=== PATIENT | female | born 1985 | race African-American/Black ===

== ENCOUNTER 2017-07-02 09:03 | Emergency (ER) | payer OTHER, SELFPAY | END 2017-07-02 10:55 | disposition home or self-care (01) | LOC: ERS 09:03 | DX: J45.901 Unspecified asthma with (acute) exacerbation (principal) | CPT/HCPCS: 94640; J7620 ==

== ENCOUNTER 2018-05-12 15:41 | Emergency (ER) | payer MEDICAID, SELFPAY ==
[2018-05-12 16:27] LABS: Hemoglobin 10.6 g/dL (12.0-16.0); Mean Corpuscular HGB CONC 31.8 g/dL (32.0-36.0); Mean Corpuscular Hemoglobin 27.4 pg (27.0-31.0); Mean Corpuscular Volume 86.2 fL (78.0-98.0); RBC Distribution Width 13.1 % (11.5-14.5); Red Blood Cell (RBC) Count 3.86 mill/uL (4.20-5.40)
[2018-05-12 16:47] LABS: ALT (SGPT) 13 U/L (8-55); AST (SGOT) 19 U/L (5-34); Albumin 3.6 g/dL (3.5-5.0); Alkaline Phosphatase 49 U/L (40-150); Anion Gap 12 mmol/L (10-20); BUN (Urea Nitrogen) 6 mg/dL (7.0-18.7); Bilirubin, Total 0.3 mg/dL (0.2-1.2); Calc. Creatinine Clearance 0 mL/min (70-130); Calcium 8.8 mg/dL (7.8-10.44); Carbon Dioxide 22 mmol/L (22-29); Chloride 106 mmol/L (98-107); Estimated GFR-MDRD Greater than 90; Glucose 92 mg/dL (70-105); Lipase 21 U/L (8-78); Potassium 3.8 mmol/L (3.5-5.1); Protein, Total 7.6 g/dL (6.0-8.3); Sodium 136 mmol/L (136-145)
[2018-05-12 16:51] LABS: #Lymphocytes 1.1 thou/uL (1.20-3.40); #Monocytes 0.4 thou/uL (0.11-0.59); #Neutrophils 2.3 thou/uL (1.40-6.50); %Basophils 0.9 % (0.0-1.0); %Eosinophils 0.9 % (0.0-10.0); %Lymphocytes 28.8 % (21.0-51.0); %Monocytes 11.1 % (0.0-10.0); %Neutrophils 58.2 % (42.0-75.0); Hypochromia SLIGHT = 6-15 cells (100X) (0-5/hpf); MDiff Complete? YES; Mean Platelet Volume 9.7 fL (7.4-10.4); Platelet Count 118 thou/uL (130-400); Platelet Morphology Comment Appears Decreased
[2018-05-12 17:18] LABS: Bilirubin Negative (Negative); Blood, Urine Moderate (Negative); Clarity CLEAR (Clear); Glucose, Urine (Dipstick) Negative (Negative); Leukocyte Negative (Negative); Nitrite Negative (Negative); Protein, Urine (Dipstick) > or equal to 300 mg/dL (Neg-Trace); Specific Gravity, Urine 1.022 (1.002-1.036)
[2018-05-12 17:21] LABS: Pregnancy Test - Urine (BHCG) Negative (Negative); Pregu Control Background? CLEAR/WHITE (CLR/WHITE); Pregu Control Bar Appear? YES (CONTROL BAR); Specific Gravity 1.022 (1.002-1.036)
[2018-05-12 17:25] LABS: Bacteria/HPF Rare-Few HPF (None Seen); Hyaline Casts/LPF 0-3 HYALINE CAST LPF (0-3 Hyaline); RBC/HPF 21-50 HPF (0-3); Squamous Epithelial 0-3 HPF (0-3)
[2018-05-12] MEDS ORDERED: Ondansetron ODT 4 MG TAB ONE (17:30)
[2018-05-12 18:41] LABS: BHCG - Serum Negative (NEGATIVE); Pregs Control Background? CLEAR/WHITE (CLR/WHITE); Pregs Control Bar Appear? YES (CONTROL BAR)
== END 2018-05-12 17:35 | disposition home or self-care (01) ==
LOC: ERS 15:41
DX: R10.9 Unspecified abdominal pain (principal); R11.10 Vomiting, unspecified; R19.7 Diarrhea, unspecified; J45.909 Unspecified asthma, uncomplicated
CPT/HCPCS: 36415; 80053; 81003; 81015; 81025; 83690; 84703; 85025; 99284; Q0162

== ENCOUNTER 2018-05-30 21:04 | Emergency (ER) | payer MEDICAID, OTHER ==
[2018-05-30 21:40] LABS: Bilirubin Negative (Negative); Blood, Urine Large (Negative); Clarity CLEAR (Clear); Glucose, Urine (Dipstick) Negative (Negative); Leukocyte Negative (Negative); Nitrite Negative (Negative); Protein, Urine (Dipstick) 300 mg/dL (Neg-Trace); Specific Gravity, Urine 1.021 (1.002-1.036)
[2018-05-30 21:41] LABS: Pregnancy Test - Urine (BHCG) Negative (Negative); Pregu Control Background? CLEAR/WHITE (CLR/WHITE); Pregu Control Bar Appear? YES (CONTROL BAR); Specific Gravity 1.021 (1.002-1.036)
[2018-05-30 21:43] LABS: #Lymphocytes 1.3 thou/uL (1.20-3.40); #Monocytes 0.5 thou/uL (0.11-0.59); #Neutrophils 2.3 thou/uL (1.40-6.50); %Basophils 0.3 % (0.0-1.0); %Eosinophils 0.9 % (0.0-10.0); %Monocytes 11.9 % (0.0-10.0); %Neutrophils 54.9 % (42.0-75.0); Hemoglobin 10.8 g/dL (12.0-16.0); Mean Corpuscular HGB CONC 32.3 g/dL (32.0-36.0); Mean Corpuscular Hemoglobin 27.5 pg (27.0-31.0); Mean Corpuscular Volume 85.2 fL (78.0-98.0); Mean Platelet Volume 10.1 fL (7.4-10.4); Platelet Count 126 thou/uL (130-400); Red Blood Cell (RBC) Count 3.94 mill/uL (4.20-5.40); White Blood Cell (WBC) Count 4.2 thou/uL (4.8-10.8)
[2018-05-30 21:43] LABS: Bacteria/HPF None Seen HPF (None Seen); Hyaline Casts/LPF 0-3 HYALINE CAST LPF (0-3 Hyaline); Pathc Cast-AUWi Flag 0.14 (0-2.49); RBC/HPF GREATER THAN 50-TNTC HPF (0-3); Squamous Epithelial 0-3 HPF (0-3); WBC/HPF 0-3 HPF (0-3)
[2018-05-30] MEDS ORDERED: Ketorolac Tromethamine 30 MG/ML VIAL ONE (21:59)
[2018-05-30 22:05] LABS: ALT (SGPT) 11 U/L (8-55); AST (SGOT) 21 U/L (5-34); Albumin 3.8 g/dL (3.5-5.0); Alkaline Phosphatase 63 U/L (40-150); Anion Gap 8 mmol/L (10-20); BUN (Urea Nitrogen) 7 mg/dL (7.0-18.7); Bilirubin, Total 0.3 mg/dL (0.2-1.2); Calc. Creatinine Clearance 0 mL/min (70-130); Calcium 9.7 mg/dL (7.8-10.44); Carbon Dioxide 30 mmol/L (22-29); Chloride 101 mmol/L (98-107); Estimated GFR-MDRD Greater than 90; Globulin 4.7 g/dL (2.4-3.5); Glucose 95 mg/dL (70-105); Lipase 23 U/L (8-78); Potassium 3.7 mmol/L (3.5-5.1); Protein, Total 8.5 g/dL (6.0-8.3); Sodium 135 mmol/L (136-145)
--- NOTE | 2018-05-30 23:20 | ULT ---
ULTRASOUND GALLBLADDER RIGHT UPPER QUADRANT: 05/30/18 HISTORY: Right upper quadrant pain. COMPARISON: None. TECHNIQUE: Real time santiago scale and color evaluation of the right upper quadrant is performed. FINDINGS: Visualized portions of the pancreas and IVC are unremarkable. Liver is normal. Portal vein is patent with antegrade flow. Common bile duct is normal. Gallbladder is normal. No pericholecystic fluid. No cholelithiasis. Right kidney is normal measuring 12 x 4.1 x 5.2 cm. No renal mass, hydronephrosis or abnormal calcifi cations. Sonographic Frost's sign is negative. IMPRESSION: Normal exam. POS: [facility]
== END 2018-05-31 00:14 | disposition home or self-care (01) ==
LOC: ERS 21:04
DX: R10.11 Right upper quadrant pain (principal); J45.909 Unspecified asthma, uncomplicated
CPT/HCPCS: 36415; 76705; 80053; 81003; 81015; 81025; 83690; 85025; 96372; J1885

== ENCOUNTER 2018-06-02 12:53 | Outpatient (CLI) | payer OTHER ==
--- NOTE | 2018-06-02 14:06 | RAD ---
CHEST 1 VIEW AND ABDOMEN 2 VIEWS: History Upper abdominal pain and pleuritic chest pain. FINDINGS: The cardiomediastinum is normal. The lungs are clear. No free air or differential air fluid levels are seen. The bowel gas pattern is unremarkable. No suspicious calcifications are identified. POS: [facility]
== END 2018-06-02 12:54 | disposition home or self-care (01) ==
LOC: BICRAD 12:53
PROVIDERS: ATTEND Internal Medicine
DX: R07.81 Pleurodynia (principal); R10.10 Upper abdominal pain, unspecified
CPT/HCPCS: 74022

== ENCOUNTER 2019-02-02 17:30 | Emergency (ER) | payer OTHER, SELFPAY | END 2019-02-02 18:36 | disposition home or self-care (01) | LOC: ERS 17:30 | DX: A38.9 Scarlet fever, uncomplicated (principal); J45.909 Unspecified asthma, uncomplicated | CPT/HCPCS: 99282 ==

== ENCOUNTER 2019-03-09 08:22 | Emergency (ER) | payer SELFPAY ==
--- NOTE | 2019-03-09 09:45 | RAD ---
EXAM: Chest PA and lateral: HISTORY: Cough. Left rib pain. COMPARISON: 06/02/2018 FINDINGS: Heart: Normal cardiac silhouette Aorta: Unremarkable Pulmonary vessels: Normal Costophrenic angles: Costophrenic angles are clear. Lungs: No consolidation or masses. Pneumothorax: No pneumothorax Osseous structures: No osseous abnormalities IMPRESSION: No acute cardiopulmonary process.
== END 2019-03-09 09:55 | disposition home or self-care (01) ==
LOC: ERS 08:22
DX: S29.011A Strain of muscle and tendon of front wall of thorax, initial encounter (principal); J45.909 Unspecified asthma, uncomplicated; X50.9XXA Other and unspecified overexertion or strenuous movements or postures, initial encounter
CPT/HCPCS: 71046

== ENCOUNTER 2019-07-13 02:45 | Emergency (ER) | payer SELFPAY ==
[2019-07-13 03:10] LABS: #Basophils 0.1 thou/uL (0.0-0.2); #Eosinphils 0.1 thou/uL (0.0-0.7); #Lymphocytes 1.8 thou/uL (1.20-3.40); #Monocytes 0.3 thou/uL (0.11-0.59); #Neutrophils 1.3 thou/uL (1.40-6.50); %Basophils 2.3 % (0.0-1.0); %Eosinophils 3.3 % (0.0-10.0); %Lymphocytes 48.8 % (21.0-51.0); %Monocytes 9.4 % (0.0-10.0); %Neutrophils 36.3 % (42.0-75.0); Hemoglobin 9.6 g/dL (12.0-16.0); Mean Corpuscular HGB CONC 32.1 g/dL (32.0-36.0); Mean Corpuscular Volume 83.9 fL (78.0-98.0); Mean Platelet Volume 10.5 fL (7.4-10.4); Platelet Count 181 thou/uL (130-400); RBC Distribution Width 14.6 % (11.5-14.5); Red Blood Cell (RBC) Count 3.56 mill/uL (4.20-5.40); White Blood Cell (WBC) Count 3.6 thou/uL (4.8-10.8)
[2019-07-13 03:36] LABS: ALT (SGPT) 16 U/L (8-55); AST (SGOT) 29 U/L (5-34); Albumin 3.5 g/dL (3.5-5.0); Alkaline Phosphatase 48 U/L (40-110); Anion Gap 11 mmol/L (10-20); BUN (Urea Nitrogen) 6 mg/dL (7.0-18.7); Bilirubin, Total 0.2 mg/dL (0.2-1.2); Calc. Creatinine Clearance 0 mL/min (70-130); Calcium 8.3 mg/dL (7.8-10.44); Carbon Dioxide 25 mmol/L (22-29); Chloride 105 mmol/L (98-107); Estimated GFR-MDRD Greater than 90; Globulin 5.3 g/dL (2.4-3.5); Glucose 86 mg/dL (70-105); Potassium 3.5 mmol/L (3.5-5.1); Protein, Total 8.8 g/dL (6.0-8.3); Sodium 137 mmol/L (136-145)
[2019-07-13 04:06] LABS: Pregnancy Test - Urine (BHCG) Negative (Negative); Pregu Control Background? CLEAR/WHITE (CLR/WHITE); Pregu Control Bar Appear? YES (CONTROL BAR); Specific Gravity 1.013 (1.002-1.036)
[2019-07-13 04:18] LABS: Bilirubin Negative (Negative); Blood, Urine 2+ (Negative); Clarity Clear (Clear); Glucose, Urine (Dipstick) Normal (Negative); Leukocyte 75 Leu/uL (Negative); Mucous/LPF Rare LPF (<2+); Nitrite Negative (Negative); Protein, Urine (Dipstick) 200 mg/dL (Neg-Trace); RBC/HPF 21-50 HPF (0-3); Squamous Epithelial 0-3 HPF (0-3); Urobilinogen Normal mg/dL (Less than 2); WBC/HPF 21-50 HPF (0-3); Yeast-Budding 1+ HPF (None Seen)
[2019-07-13 04:23] LABS: Bacteria/HPF 1+ HPF (None Seen)
--- NOTE | 2019-07-16 15:04 | EKG ---
Test Reason : Blood Pressure : / mmHG Vent. Rate : 070 BPM Atrial Rate : 070 BPM P-R Int : 230 ms QRS Dur : 086 ms QT Int : 410 ms P-R-T Axes : 035 017 024 degrees QTc Int : 442 ms Sinus rhythm with 1st degree A-V block Nonspecific T wave abnormality Abnormal ECG Confirmed by DEMARCO URIBE ([id number]), graphics editor RODRÍGUEZ LUCIO ([id number] on 07/16/2019 3:04:10 PM Referred By: Confirmed By:DEMARCO URIBE
== END 2019-07-13 04:15 | disposition home or self-care (01) ==
LOC: ERS 02:45
DX: D64.9 Anemia, unspecified (principal); J45.909 Unspecified asthma, uncomplicated; F32.9 Major depressive disorder, single episode, unspecified; Z79.899 Other long term (current) drug therapy
CPT/HCPCS: 80053; 81003; 81015; 81025; 85025; 93005

== ENCOUNTER 2019-09-07 20:32 | Inpatient (IN) | payer OTHER, MEDICAID ==
--- NOTE | 2019-09-07 21:14 | RAD ---
Exam: Chest one view HISTORY:Chest pain. Dyspnea. Comparison: 03/09/2019 FINDINGS: Cardiac silhouette:Cardiomegaly Aorta: Unremarkable Pulmonary vessels: Normal Costophrenic angles: This right-sided pleural effusion. LUNGS: Right lung opacification which obscures the right hemidiaphragm and right heart border. Pneumothorax: None Osseous abnormalities: None IMPRESSION: Pleural and parenchymal changes in the right lung.
[2019-09-07 21:33] LABS: Hemoglobin 9.3 g/dL (12.0-16.0); Mean Corpuscular HGB CONC 32.2 g/dL (32.0-36.0); Mean Corpuscular Hemoglobin 28.7 pg (27.0-31.0); Mean Platelet Volume 11.6 fL (7.4-10.4); Platelet Count 159 thou/uL (130-400); RBC Distribution Width 16.7 % (11.5-14.5); Red Blood Cell (RBC) Count 3.24 mill/uL (4.20-5.40); White Blood Cell (WBC) Count 3.1 thou/uL (4.8-10.8)
[2019-09-07] MEDS ORDERED: Acetaminophen 500 MG TAB ONE (21:35)
[2019-09-07] MEDS ORDERED: Azithromycin 500 MG VIAL ONE (21:37)
[2019-09-07] MEDS ORDERED: cefTRIAXone\\ROCEPHIN 1 GM VIAL ONE (21:37)
[2019-09-07] MEDS ORDERED: Amoxicillin/Potassium Clav 250 MG TAB ONE (21:37)
[2019-09-07 21:52] LABS: Actual Bicarbonate (HCO3a) 13.3 mEq/L (22-28); Analyzer IN Cardio ER; Base Excess (BEa) -11.2 mEq/L (-2.0 to +3.0); Calcium, Ionized 1.08 mmol/L (1.12-1.30); Carboxyhemoglobin (COHb) 0.1 gm% (0.0-3.0); Hemoglobin (Hb) 8.7 g/dL (12.0-16.0); pH, Arterial 7.34 (7.35-7.45)
[2019-09-07 21:55] LABS: Band 24 % (5-11); Hypochromia SLIGHT = 6-15 cells (100X) (0-5/hpf); Lymphocytes 36 % (21-51); MDiff Complete? YES; Metamyelocyte 12 % (0-0); Monocytes 4 % (0-10); Neutrophil 24 % (42-75); Platelet Morphology Comment Appears Adequate
[2019-09-07 22:05] LABS: ALT (SGPT) 19 U/L (8-55); AST (SGOT) 41 U/L (5-34); Alkaline Phosphatase 27 U/L (40-110); Anion Gap 27 mmol/L (10-20); BUN (Urea Nitrogen) 30 mg/dL (7.0-18.7); Bilirubin, Total 0.6 mg/dL (0.2-1.2); Calc. Creatinine Clearance 0 mL/min (70-130); Calcium 8.1 mg/dL (7.8-10.44); Carbon Dioxide 11 mmol/L (22-29); Chloride 100 mmol/L (98-107); Estimated GFR-MDRD 15; Globulin 5.9 g/dL (2.4-3.5); Glucose 65 mg/dL (70-105); Potassium 4.2 mmol/L (3.5-5.1); Protein, Total 8.9 g/dL (6.0-8.3); Sodium 134 mmol/L (136-145)
[2019-09-07 22:08] LABS: CO2 Tension 25.2 mmHg (35.0-45.0); O2 Tension (PaO2), arterial 59.2 mmHg (80.0-100.0)
[2019-09-07 22:09] LABS: Puncture Site LRA
[2019-09-07 23:02] LABS: CKMB 8.5 ng/mL (0-6.6)
--- NOTE | 2019-09-07 23:19 | PDOC.HHP ---
Hospitalist HPI - History of Present Illness Shortness of breath History of Present Illness: Patient with PMH of SLE, HTN and asthma presents to ED for evaluation of shortness of breath and generalized malaise. History of limited due to acute distress due to difficulty breathing. Tells me that symptoms started 1 day prior to presenting to ED. Refers rapidly progressing shortness of breath. Per patient earlier that day she appeared to be in her usual state of health. She denies any fever or chills. Denies any recent sick contacts. Lives at home with family. Per patient no high risk exposures to COVID19. On exam she is obviously short of breath and requiring high flow oxygen. Initial ED evaluation reveals fever >101, hypoxia, tachycardia, chest x-ray shows right sided infiltrate with pleural effusion. Hospitalist ROS - Review of Systems Constitutional: denies: fever, chills, sweats, weakness, malaise, other ENT: denies: ear pain, ear discharge, nose pain, nose discharge, nose congestion , mouth pain, mouth swelling, throat pain, throat swelling, other Respiratory: reports: cough, shortness of breath, pleuritic pain Gastrointestinal: denies: nausea, vomiting, abdominal pain, diarrhea, constipation, melena, hematochezia, other Genitourinary: denies: dysuria, frequency, incontinence, hematuria, retention, other Musculoskeletal: denies: neck pain, shoulder pain, arm pain, back pain, hand pain, leg pain, foot pain, other Neurological: denies: weakness, numbness, incoordination, change in speech, confusion, seizures, other Hospitalist History - Past Medical History Cardiac: reports: HTN Pulmonary: reports: asthma Gastrointestinal: denies: no pertinent history, Constipation, Diverticulosis, GERD, GI bleed, Gastritis, Hemorrhoids, Inflam bowel disease, Irritable bowel disease, Peptic ulcer disease, Other Other Medical History: SLE - Exam General Appearance: ill appearing (In obvious acute distress due to shortness of breath) Neck: supple, no JVD Heart: negative: RRR (Tachycardic) Respiratory - other findings: Bilateral rhonchi with decreased bs at bases Gastrointestinal: soft, non-tender, non-distended, normal bowel sounds, no palpable masses, no hepatomegaly, no splenomegaly, no bruit Extremities: no cyanosis, no clubbing, no edema Neurological: cranial nerve grossly intact, normal sensation to touch, no weakness, no focal deficits, no new deficit Hospitalist Results - Labs Result Diagrams: 09/08/19 02:02 09/08/19 02:02 Lab results: WBC 3.1 thou/uL (4.8-10.8) L 09/07/19 20:53 Hgb 9.3 g/dL (12.0-16.0) L 09/07/19 20:53 Hct 28.9 % (36.0-47.0) L 09/07/19 20:53 MCV 89.0 fL (78.0-98.0) 09/07/19 20:53 Plt Count 159 thou/uL (130-400) 09/07/19 20:53 Band Neuts % (Manual) 24 % (5-11) H 09/07/19 20:53 ABG pH 7.34 (7.35-7.45) L 09/07/19 21:44 ABG pCO2 25.2 mmHg (35.0-45.0) L* 09/07/19 21:44 ABG pO2 59.2 mmHg (80.0-100.0) L* 09/07/19 21:44 Sodium 134 mmol/L (136-145) L 09/07/19 20:53 Potassium 4.2 mmol/L (3.5-5.1) 09/07/19 20:53 Chloride 100 mmol/L (98-107) 09/07/19 20:53 Carbon Dioxide 11 mmol/L (22-29) L 09/07/19 20:53 BUN 30 mg/dL (7.0-18.7) H 09/07/19 20:53 Creatinine 4.15 mg/dL (0.6-1.1) H 09/07/19 20:53 Glucose 65 mg/dL (70-105) L 09/07/19 20:53 Lactic Acid 11.7 mmol/L (0.5-2.2) H* 09/07/19 22:03 Calcium 8.1 mg/dL (7.8-10.44) 09/07/19 20:53 Total Bilirubin 0.6 mg/dL (0.2-1.2) 09/07/19 20:53 AST 41 U/L (5-34) H 09/07/19 20:53 ALT 19 U/L (8-55) 09/07/19 20:53 Alkaline Phosphatase 27 U/L (40-110) L 09/07/19 20:53 Creatine Kinase 682 U/L (29-168) H 09/07/19 22:03 CK-MB (CK-2) 8.5 ng/mL (0-6.6) H* 09/07/19 22:03 Troponin I 0.612 ng/mL (< 0.028) H* 09/07/19 22:03 B-Natriuretic Peptide 290.9 pg/mL (0-100) H 09/07/19 22:03 Serum Total Protein 8.9 g/dL (6.0-8.3) H 09/07/19 20:53 Albumin 3.0 g/dL (3.5-5.0) L 09/07/19 20:53 - Radiology Interpretation Chest x-ray Additional Comment: Parenchymal infiltrate and pleural effusion Hospitalist H&P A/P - Plan Plan: Problem List 1. Acute respiratory failure 2. Acute renal failure 3. Lactic acidosis 4. Sepsis 5. Pneumonia 6. Elevated troponin in setting of demand ischemia 7. History of asthma 8. History of SLE Assessment and Plan Presents with evidence of sepsis with multiorgan failure including acute respiratory failure and acute renal failure in setting of PNA. Admit to ICU for closer monitoring Continue with oxygen support Low threshold for intubation Blood/sputum cultures ordered COVID19 swab obtained Trend lactic acid per protocol Continue with IV Ceftriaxone plus Azithromycin Received IV vancomycin x 1 dose; will hold off further in setting of KORI Pending progression will consider broadening antibiotic coverage Continue with IV Steroids Consider repeating x-ray vs CT scan in 24-48 hrs to assess progression Continue with generous IVF resucitation & monitor renal function closely Avoid nephrotoxic agents Pending progression will consider nephrology consultation ADDENDUM: Patient continued to decompensate. Discussed with oncall Pulmonary Medicine. Will make anesthesia aware for possible intubation.
[2019-09-07] MEDS ORDERED: Vancomycin 1 GM/200 ML BAG ONE (23:24)
[2019-09-07] MEDS ORDERED: methylPREDNISolone Sod Succ/PF 125 MG/2 ML VIAL ONE (23:57)
[2019-09-08] MEDS ORDERED: Ondansetron PF 4 MG/2 ML Vial IVP PRN (00:20)
[2019-09-08] MEDS ORDERED: Guaifenesin DM 100-10/5 ML UDCUP PO PRN (00:20)
[2019-09-08 01:27] LABS: Troponin I 0.897 ng/mL (< 0.028)
[2019-09-08 01:37] LABS: Actual Bicarbonate (HCO3a) 11.5 mEq/L (22-28); CO2 Tension 33.5 mmHg (35.0-45.0); Calcium, Ionized 1.03 mmol/L (1.12-1.30); Carboxyhemoglobin (COHb) 0.6 gm% (0.0-3.0); Hemoglobin (Hb) 8.9 g/dL (12.0-16.0); O2 Tension (PaO2), arterial 67.7 mmHg (80.0-100.0); Potassium - ABG Lab 3.92 mmol/L (3.70-5.30)
[2019-09-08 01:38] LABS: ALV-art Gradient 318.225 (0-20); Puncture Site LRA; pH, Arterial 7.16 (7.35-7.45)
[2019-09-08] MEDS ORDERED: Propofol 1,000 MG/100 ML VIAL IV ONE (01:55)
[2019-09-08] MEDS ORDERED: Sodium Bicarbonate 150 MEQ in Dextrose 5% in Water 1,000 ML IV SCH (02:15)
[2019-09-08] MEDS ORDERED: Norepinephrine 8 MG/0.9% NS 250 ML ONE (02:32)
[2019-09-08 02:35] LABS: ALT (SGPT) 20 U/L (8-55); AST (SGOT) 45 U/L (5-34); Albumin 2.7 g/dL (3.5-5.0); Alkaline Phosphatase 24 U/L (40-110); Anion Gap 24 mmol/L (10-20); BUN (Urea Nitrogen) 31 mg/dL (7.0-18.7); BUN/Creatinine Ratio 7.42; Bilirubin, Total 0.4 mg/dL (0.2-1.2); Calc. Creatinine Clearance 0 mL/min (70-130); Calcium 7.2 mg/dL (7.8-10.44); Carbon Dioxide 10 mmol/L (22-29); Chloride 106 mmol/L (98-107); Estimated GFR-MDRD 15; Glucose 79 mg/dL (70-105); Phosphorus 7.5 mg/dL (2.3-4.7); Potassium 3.9 mmol/L (3.5-5.1); Protein, Total 7.7 g/dL (6.0-8.3); Sodium 136 mmol/L (136-145)
[2019-09-08 02:50] LABS: Actual Bicarbonate (HCO3a) 9.4 mEq/L (22-28); Base Excess (BEa) -17.1 mEq/L (-2.0 to +3.0); Calcium, Ionized 1.03 mmol/L (1.12-1.30); Carboxyhemoglobin (COHb) 0.5 gm% (0.0-3.0); Hemoglobin (Hb) 8.1 g/dL (12.0-16.0); Potassium - ABG Lab 4.73 mmol/L (3.70-5.30)
[2019-09-08 02:55] LABS: Band 22 % (5-11); Hemoglobin 8.5 g/dL (12.0-16.0); Hypochromia SLIGHT = 6-15 cells (100X) (0-5/hpf); Lymphocytes 48 % (21-51); MDiff Complete? YES; Mean Corpuscular HGB CONC 30.1 g/dL (32.0-36.0); Mean Corpuscular Hemoglobin 27.5 pg (27.0-31.0); Mean Corpuscular Volume 91.3 fL (78.0-98.0); Mean Platelet Volume 11.5 fL (7.4-10.4); Metamyelocyte 9 % (0-0); Monocytes 5 % (0-10); Neutrophil 16 % (42-75); Platelet Count 146 thou/uL (130-400); Platelet Morphology Comment Appears Adequate; RBC Distribution Width 16.5 % (11.5-14.5); Red Blood Cell (RBC) Count 3.09 mill/uL (4.20-5.40); White Blood Cell (WBC) Count 2.4 thou/uL (4.8-10.8)
[2019-09-08 02:59] LABS: CO2 Tension 24.8 mmHg (35.0-45.0); Puncture Site L RADIAL
[2019-09-08] MEDS ORDERED: Sodium Bicarb 50 MEQ/50 ML Abboject 8.4% SYRINGE IVP SCH ×3 (03:00→09:15)
[2019-09-08] MEDS ORDERED: Sodium Bicarb 50 MEQ/50 ML Abboject 8.4% SYRINGE ONE ×4 (03:29→09:32)
[2019-09-08 03:45] LABS: Actual Bicarbonate (HCO3a) 12.2 mEq/L (22-28); Base Excess (BEa) -14.1 mEq/L (-2.0 to +3.0); CO2 Tension 29.9 mmHg (35.0-45.0); Carboxyhemoglobin (COHb) 0.8 gm% (0.0-3.0); O2 Tension (PaO2), arterial 262.9 mmHg (80.0-100.0); Potassium - ABG Lab 3.76 mmol/L (3.70-5.30)
[2019-09-08 03:46] LABS: pH, Arterial 7.23 (7.35-7.45)
[2019-09-08 03:47] LABS: ALV-art Gradient 412.725 (0-20); Puncture Site ALINE
[2019-09-08 04:40] LABS: Lactic Acid 18.4 mmol/L (0.5-2.2)
--- NOTE | 2019-09-08 04:50 | PRG ---
Code Blue event note. I responded to Code Blue from overhead page that was sent out at approximately 0250 hours on 09/08/2019, and arrived at the bedside shortly after. Brief history obtained from nursing staff, who states patient is a COVID PUI. She presented with shortness of breath. Per nursing, the patient initially presented to the floor with a pulse in the 150s. However, while nursing staff was caring for the patient, they noted that she became profoundly bradycardic with a widening of her QRS complex on security monitor and went pulseless, prompting the initiation of the Code Blue. By the time I had my PPE don, patient received one amp of bicarb and 1 mg of epinephrine. The patient had also been emergently intubated by Anesthesia prior to my arrival. ROSC was obtained at this time. Patient had a palpable pulse. The blood pressure is unable to be detected. She was started on epinephrine drip. ABG immediately prior to the Code showed a pH of 7.20, bicarb of 24.8, PO2 of 107.0 , and bicarb of 9.4. Patient did have a profound metabolic acidosis, likely due to septic shock. I asked the nursing team if they desired a central venous catheter placed. Please see my operative note for details regarding this. Dr. Brooks arrived to bedside as I was finishing the CVC placement and assumed care of the patient. Job ID: [id number] [facility]TDD
--- NOTE | 2019-09-08 05:05 | OP ---
DATE OF PROCEDURE: 09/08/2019 PROCEDURE: Central venous catheter placement. PREPROCEDURE DIAGNOSES: 1. Septic shock. 2. Cardiac arrest, status post ROSC. POSTPROCEDURE DIAGNOSES: 1. Septic shock. 2. Cardiac arrest, status post ROSC. INDICATIONS: Need for pressors, status post ROSC. PROCEDURE IN DETAIL: Implied consent was obtained due to the emergent nature of the procedure. Right femoral arterial pulse was easily palpated. Decision was made to place central venous catheter at this site. Her right inguinal region was prepped and draped in the usual sterile fashion. Approximately 4 mL 1% lidocaine without epinephrine was administered over the site. An 18-gauge introducer needle was inserted and venous blood flash was identified. Syringe was removed and no pulsating blood was noted coming from the needle. Seldinger technique was used to place 7-Croatian triple- lumen catheter without complications. Central line was sutured in place using two 3-[address] Brooks was present at bedside at this time and proceeded to place a right femoral artery line. Both lines were covered with the same dressing. No immediate complications were noted. No postoperative imaging is needed at this time. Job ID: [id number] [facility]
[2019-09-08 05:25] LABS: Lactic Acid 18.1 mmol/L (0.5-2.2)
[2019-09-08] MEDS ORDERED: Fentanyl BOLUS 250 ML IVPB PRN (05:32)
[2019-09-08] MEDS ORDERED: fentaNYL Citrate/PF 2,000 MCG in Sodium Chloride 0.9% 60 ML IV SCH (05:32)
[2019-09-08] MEDS ORDERED: DISCONTINUE PREVIOUS NARCOTIC PAIN MEDICATIONS AND BENZODIAZEPINES FS SCH (05:32)
[2019-09-08] MEDS ORDERED: Propofol BOLUS 1,000 MG/100 ML VIAL IV PRN (05:32)
[2019-09-08] MEDS ORDERED: methylPREDNISolone Sod Succ 40 MG VIAL IVP SCH (06:00)
[2019-09-08] MEDS: Sodium Chloride 0.9% 1,000 ML IV SCH ×2 (06:36→12:23)
[2019-09-08 06:39] LABS: Bacteria/HPF 2+ HPF (None Seen); Bilirubin Negative (Negative); Blood, Urine 2+ (Negative); Clarity Turbid (Clear); Glucose, Urine (Dipstick) Normal (Negative); Leukocyte Negative Leu/uL (Negative); Mucous/LPF Rare LPF (<2+); Nitrite Negative (Negative); Protein, Urine (Dipstick) 300 mg/dL (Neg-Trace); RBC/HPF Greater than 50 HPF (0-3); Urobilinogen Normal mg/dL (Less than 2); WBC/HPF 21-50 HPF (0-3)
[2019-09-08] MEDS ORDERED: Vancomycin HCl 1,000 GM in Sodium Chloride 0.9% 250 ML 250 ML IVPB SCH (08:15)
[2019-09-08 08:16] LABS: Actual Bicarbonate (HCO3a) 9.7 mEq/L (22-28); Base Excess (BEa) -16.7 mEq/L (-2.0 to +3.0); Calcium, Ionized 0.89 mmol/L (1.12-1.30); Carboxyhemoglobin (COHb) 0.3 gm% (0.0-3.0); Hemoglobin (Hb) 8.6 g/dL (12.0-16.0); O2 Tension (PaO2), arterial 231.7 mmHg (80.0-100.0); Potassium - ABG Lab 3.11 mmol/L (3.70-5.30)
--- NOTE | 2019-09-08 08:17 | PDOC.HOSPP ---
- Subjective Encounter Date: 09/08/19 Encounter Time: 07:00 Subjective: Spoke with mother over the phone. Patient was diagnosed with Lupus 3 months ago and started on medication that mother thinks is some kind of steroid a week ago. Per mother, lost 40lbs since diagnosis. Two days ago, became suddenly fatigue, diffuse body aches, and yesterday went to the bathroom and couldn't get off the toilet due to weakness. No medical issues other than HTN and SLE, no past infections or hospitalizations, and no recreational drug abuse. This morning, intubated, sedated, and on pressors. Blood culture growing gram positive cocci in pairs. - Objective Vital Signs & Weight: Vital Signs (12 hours) Temp Pulse Resp Pulse Ox 09/08/19 04:00 30 H 09/08/19 03:49 157 H 09/08/19 02:00 99.6 F 09/08/19 01:05 96 Weight Weight 213 lb 13.574 oz Most Recent Monitor Data Heart Rate from ECG 145 NIBP 132/92 NIBP BP-Mean 105 Respiration from ECG 19 SpO2 100 I&O: 09/07/19 09/08/19 09/09/19 06:59 06:59 06:59 Output Total 220 Balance -220 Result Diagrams: 09/08/19 02:02 09/08/19 02:02 Hospitalist ROS - Review of Systems ROS unobtainable: due to endotracheal tube - Medication Medications: Active Medications Generic Name Dose Route Start Last Admin Trade Name Freq PRN Reason Stop Dose Admin Sodium Chloride 1,000 mls @ 50 mls/hr 09/08/19 00:15 09/08/19 06:36 Normal Saline 0.9% IV Not Given .Q20H GIA Methylprednisolone Sodium Succinate 40 mg 09/08/19 06:00 09/08/19 06:05 Solu-Medrol IVP 09/08/19 11:18 40 mg Q6HR GIA Administration - Exam General - other findings: intubated and sedated Eye: PERRL, anicteric sclera Heart: no murmur, no gallops, no rubs Heart - other findings: tachycardic in 130s; sinus based on telemetry Respiratory: CTAB, no wheezes, no rales, no ronchi Respiratory - other findings: mechanically ventilated Gastrointestinal: soft, non-tender, non-distended, normal bowel sounds, no palpable masses Hosp A/P (1) Sepsis Code(s): A41.9 - SEPSIS, UNSPECIFIED ORGANISM Status: Acute (2) ARDS (adult respiratory distress syndrome) Code(s): J80 - ACUTE RESPIRATORY DISTRESS SYNDROME Status: Acute (3) Community acquired pneumonia Code(s): J18.9 - PNEUMONIA, UNSPECIFIED ORGANISM Status: Acute (4) KORI (acute kidney injury) Code(s): N17.9 - ACUTE KIDNEY FAILURE, UNSPECIFIED Status: Acute (5) Neutropenia associated with infection Code(s): D70.3 - NEUTROPENIA DUE TO INFECTION Status: Acute (6) Anemia Code(s): D64.9 - ANEMIA, UNSPECIFIED Status: Acute - Plan PM update -urine Ag strep and BCx strep. Changed cefepime to ceftriaxone. Keep vanc since patient reported to be fatigued prior to onset of respiratory symptoms, may be a component of meningitis. Consulting Infectious disease for additional input. * Severe Sepsis * ARDS * acute hypoxic respiratory failure * CAP * received one dose of vanc, then started on ceftriaxone and azithro * remains febrile, intubated and sedated, requires pressors * neutropenic, relative lymphocytosis; complained of diffuse body aches, recently started on medication for SLE * BCx gram positive cocci * Likely CAP, considering presentation may be influenza pneumonia with superimposed bacterial pneumonia * ABG c/w metabolic acidosis with mild respiratory acidosis * requested mother to provide full medication list to hospital * COVID pending * * vanc and cefepime renally dosed; continue azithromycin * ventilation and IVF per ARDS protocol; defer to PCCM * Neutropenia, Anemia * likely sepsis related * * empiric cefepime * * NSTEMI Type 2 * mother denies family hisotry of CAD or recreational drug abuse * likely demand due to sepsis * EKG shows sinus tachycardia with no new or old ischemic signs * * should improve with resolution of sepsis and tachycardia * UDS for stimulants * KORI * mcgill placed * mother denies history of CKD * UA contaminated; * likely prerenal or ATN though UA shows no granular casts * * nephrology consulted * * dispo/PPx * full code. mother is surrogate * DVT PPx - heparin * GI PPx - no Ix
[2019-09-08 08:26] LABS: Amphetamine Not Detected (NotDetected); Barbiturates Screen Not Detected (NotDetected); Benzodiazepine Screen Detected (NotDetected); Cocaine Metabolite Screen Not Detected (NotDetected); Medtox Control Line Valid? VALID (VALID); Medtox Reader # READER 4; Methadone Not Detected (NotDetected); Methamphetamine Not Detected (NotDetected); Opiate Screen Detected (NotDetected); Oxycodone Screen Not Detected (NotDetected); Phencyclidine (PCP) Not Detected (NotDetected); THC/Cannabinoid Screen Not Detected (NotDetected); Tricyclic Screen Not Detected (NotDetected)
[2019-09-08 08:39] LABS: CO2 Tension 24.8 mmHg (35.0-45.0); Puncture Site LINE; pH, Arterial 7.21 (7.35-7.45)
--- NOTE | 2019-09-08 08:41 | RAD ---
SINGLE VIEW OF THE CHEST: COMPARISON: 09/08/2019. HISTORY: Intubation for respiratory failure. FINDINGS: A single view of the chest shows a cardiomediastinal silhouette which is upper limits of normal in si ze. An endotracheal tube is seen with its tip above the morelia. An NG tube is seen in the stomach. There is a veil-like opacity in the right thorax which likely represents a moderate layering pleural effusion. IMPRESSION: Moderate right pleural effusion. POS: [facility]
--- NOTE | 2019-09-08 08:42 | RAD ---
SINGLE VIEW OF THE CHEST: COMPARISON: 09/07/2019. HISTORY: Decreased oxygen saturation. FINDINGS: A single view of the chest shows a cardiomediastinal silhouette which is upper limits of normal in si ze. Low lung volumes are present. There is an increasing veil-like opacity in the right thorax whic h likely represents a layering moderate pleural effusion. IMPRESSION: Moderate right pleural effusion. POS: [facility]
[2019-09-08] MEDS ORDERED: Cefepime 0.5 GM in Admixture Fee 1 EACH FS SCH (08:45)
[2019-09-08] MEDS ORDERED: Heparin 10,000 UNITS/ 10 ML VIAL ONE (09:28)
[2019-09-08] MEDS ORDERED: EPINEPHrine 1 MG/10 ML Abboject SYRINGE ONE (09:32)
[2019-09-08] MEDS: Heparin 5,000 UNITS/ML VIAL SC SCH ×3 (09:36→21:06)
[2019-09-08] MEDS ORDERED: Cefepime 0.5 GM in Sodium Chloride 0.9% 100 ML IVPB SCH (10:00)
[2019-09-08] MEDS ORDERED: Sodium Bicarb 50 MEQ/50 ML VIAL IVP SCH (10:30)
[2019-09-08 10:36] LABS: Strep pneumo Urine Ag POSITIVE (NEGATIVE)
[2019-09-08 10:41] LABS: Legionella Urinary Ag Negative (Negative)
[2019-09-08 11:31] LABS: SARS-CoV-2 MS2 Positive; SARS-CoV-2 N Gene Negative; SARS-CoV-2 S Gene Negative; SARS-CoV-2 orf1ab Negative
[2019-09-08] MEDS: Vancomycin HCl 500 MG in Sodium Chloride 0.9% 100 ML IVPB SCH (12:18)
[2019-09-08] MEDS: Morphine 2 MG/ML SYRINGE SLOW IVP PRN (13:59)
[2019-09-08 14:38] LABS: Actual Bicarbonate (HCO3a) 14.8 mEq/L (22-28); Base Excess (BEa) -8.3 mEq/L (-2.0 to +3.0); Calcium, Ionized 0.83 mmol/L (1.12-1.30); Carboxyhemoglobin (COHb) 0.6 gm% (0.0-3.0); Hemoglobin (Hb) 7.9 g/dL (12.0-16.0); O2 Tension (PaO2), arterial 273.8 mmHg (80.0-100.0); Potassium - ABG Lab 3.46 mmol/L (3.70-5.30); pH, Arterial 7.43 (7.35-7.45)
[2019-09-08 14:59] LABS: CO2 Tension 22.7 mmHg (35.0-45.0); Puncture Site LINE
[2019-09-08 15:00] LABS: ALV-art Gradient 196.925 (0-20)
[2019-09-08] MEDS ORDERED: Fentanyl 100 MCG/2 ML VIAL ONE (16:10)
[2019-09-08] MEDS: Acetaminophen 325 MG TAB PO PRN (16:15)
[2019-09-08] MEDS: Sodium Bicarbonate 150 MEQ in Dextrose 5% in Water 1,000 ML IV SCH (16:28)
[2019-09-08] MEDS: Propofol 1,000 MG/100 ML VIAL IV PRN ×2 (16:49→23:46)
[2019-09-08] MEDS ORDERED: cefTRIAXone\\ROCEPHIN 2 GM in Sodium Chloride 0.9% 100 ML IVPB SCH ×2 (17:00→21:00)
[2019-09-08] MEDS: EPINEPHrine 4 MG in Dextrose 5% in Water 250 ML IV SCH (17:13)
[2019-09-08 17:50] LABS: Complement-C4 6.5 mg/dL (15-57)
[2019-09-08 17:56] LABS: HIV (1/2) Antibody/Antigen Non-Reactive (NonReactive); HIV 1/2 INDEX 0.06 S/CO (<1.00)
[2019-09-08 18:45] LABS: HBSAB Concentration 7.44 mIU/mL; HBSAg Index 0.61 S/CO (0-0.99); Hep B Surf AB Non-Reactive (NonReactive); Hep B Surf Ag Non-Reactive S/CO (NonReactive)
[2019-09-08] MEDS: Hydrocortisone Sod Succ/PF 100 mg/2 ml Vial IVP SCH ×2 (18:58→23:46)
[2019-09-08] MEDS: cefTRIAXone\\ROCEPHIN 2 GM in Sodium Chloride 0.9% 100 ML IVPB SCH (21:06)
[2019-09-08] MEDS ORDERED: Azithromycin 500 MG in Sodium Chloride 0.9% 250 ML 250 ML IVPB SCH (22:00)
--- NOTE | 2019-09-08 23:12 | OP ---
DATE OF PROCEDURE: 09/08/2019 PREOPERATIVE DIAGNOSES: Acute renal failure in need of dialysis access. Strep pneumonia, respiratory failure, ventilator dependent, COVID negative, normal renal function two months ago, lupus, bilateral antecubital IVs in place removed immediately on my visit. POSTOPERATIVE DIAGNOSES: Acute renal failure in need of dialysis access. Strep pneumonia, respiratory failure, ventilator dependent, COVID negative, normal renal function two months ago, lupus, bilateral antecubital IVs in place removed immediately on my visit. PROCEDURE PERFORMED: Left femoral vein Trialysis catheter. ANESTHESIA: 1% Xylocaine. DESCRIPTION OF PROCEDURE: At the patient's bedside, her left groin was clipped of hair, prepared with ChloraPrep, and draped in routine fashion. Left femoral vein cannulated with trocar catheter, J-wire was threaded. Trocar catheter removed. Skin site enlarged sharply, and dilators small and large placed over the J-wire into the femoral vein and removed. Distal pole of the Trialysis catheter was placed over the J-wire into the femoral vein, and J-wire removed. Catheter was secured with two interrupted suture of 3-0 nylon. Each port aspirated blood, flushed with heparinized saline solution. Sterile dressing applied. Job ID: [id number]
--- NOTE | 2019-09-08 23:19 | CON ---
DATE OF CONSULTATION: 09/08/2019 CRITICAL CARE TIME: 95 minutes spent at the bedside, independent of procedures. HISTORY: Cain is a 33-year-old female who presented to the hospital in the evening on 09/06. She was admitted to the ICU, deteriorated, was intubated and then sustained a bradycardic arrest. With epinephrine, bicarb, and hyperventilation , she was resuscitated. She presented with a history of one day of cough, fever, and shortness of breath. Her 1st x-ray showed a dense alveolar infiltrate. Post intubation x-ray showed bilateral alveolar infiltrates. PAST MEDICAL HISTORY: Reportedly remarkable for lupus, but she does not know what medicine she takes and per my discussion with the admitting doctors, she did not identify her primary care doc. Her past medical history otherwise unremarkable with the exception of the possibility of maybe having asthma with this. FAMILY HISTORY: Negative for lung disease in early age. We did take care of person with the same last name who had , but it is unclear since there is no family available whether this is a relative or not. PHYSICAL EXAMINATION: GENERAL: She was on an epinephrine drip when I arrived. VITAL SIGNS: Blood pressure was in the 80s. Resident was placing the femoral vein line. She was sedated and paralyzed through ventilation. LUNGS: Remarkable for coarse equal breath sounds. HEART: Regular rate and rhythm. ABDOMEN: Soft. EXTREMITIES: Without asymmetry. LABORATORY DATA: White count was 3.1, hemoglobin 9.3, and platelets 159. She had 24% bands on presentation, 12% metamyelocytes which I suspect are secondary to demargination with sepsis. Sodium 134, potassium 4.2, chloride 100, bicarb 11, BUN 30, and creatinine 4.15. She had a creatinine last year that was normal. BNP was 290. Total protein was 8.9 and globulin was 5.9. PH 7.34, CO2 of 25, PO2 of 59 , initially at 1:30 in the morning, she was 7.16. Post intubation, she was 7.2, CO2 of 24, and PO2 of 107. She was given multiple amps of bicarb during the above serial blood gases. As the day is progressed, she has been examined multiple times. Her pH is now up to 7.43. She is stable on an epinephrine drip. General Surgery has been consulted for dialysis catheter since she is anuric. Blood cultures are growing strep pneumonia. Urinary antigen was positive for strep pneumonia. COVID screen was negative. IMPRESSION: Sepsis with Streptococcus pneumoniae. Her prognosis is quite guarded. Job ID: [id number] [facility]TD[facility]
--- NOTE | 2019-09-08 23:50 | CON ---
DATE OF CONSULTATION: CONSULTING PHYSICIAN: Gerber Carlos MD. REQUESTING PHYSICIAN: Michael Jacobs MD. REASON FOR CONSULTATION: Acute kidney injury. IMPRESSION: 1. Acute kidney injury. This is likely cytokine and hemodynamically mediated acute tubular necrosis in the context of sepsis. 2. Severe metabolic acidosis in the context of severe lactic acidemia due to sepsis. 3. Sepsis. 4. History of lupus with potential for being immunosuppressed. 5. Cannot rule out other potential immunosuppressive conditions. PLAN: 1. The patient's renal function likely to get worse especially as it relates to the acid-base disorder. Therefore, we will initiate emergent hemodialysis with ultrafiltration as tolerated by hemodynamics. 2. We will use a higher potassium bath to dialyze this patient because of the cellular shift of potassium that will occult when the metabolic acidosis begins to be addressed by the hemodialysis. 3. Renally dose all medications and avoid potentially nephrotoxic agents as _there is potential for renal recovery in this patient. 4. The patient likely will need to be evaluated for other potential immunosuppressive state. We will defer to the Infectious Disease on this. 5. Further management will be dependent on the clinical course. HISTORY OF PRESENT ILLNESS: History is that of 33-year-old female patient with history of lupus and asthma, who presented here with worsening shortness of breath and fever. The patient admitted to the ICU and noted to be having presence of strep pneumonia. In addition, the patient also noted with elevated creatinine of 4 with a recent creatinine within normal range of about 0.7 as of 2 months ago. The patient also noted to be severely acidotic with profound lactic acidemia. As a result of this finding, decision has been taken to involve Renal in the management of this case. PAST MEDICAL HISTORY: Significant for hypertension, lupus, asthma. MEDICATIONS: Reviewed as documented on [facility]. SOCIAL HISTORY: Could not be obtained from this patient who is already intubated. FAMILY HISTORY: Could not be obtained from this patient who is already intubated. REVIEW OF SYSTEMS: Highly limited given the fact that this patient is already intubated. PHYSICAL EXAMINATION: The patient is noted to be an on ventilator. VITAL SIGNS: Blood pressure 109/75, pulse of 119, temperature 101.5. HEENT: Remarkable for endotracheal tube in place. CARDIOVASCULAR SYSTEM: First and second heart sounds were heart. RESPIRATORY SYSTEM: Revealed vented sounds. DIGESTIVE SYSTEM: Revealed a benign abdomen. EXTREMITIES: No peripheral edema. SKIN: No new gross rash. LYMPHATICS: No peripheral lymphadenopathy. LABORATORY FINDINGS: White count of 2.4, hemoglobin 8.5. Chemistry showed a creatinine of 4.18, BUN of 31, bicarb of 10, lactic acid of 18.1 with a phosphorus of 7.5. SUMMARY: A 33-year-old female patient with worsening respiratory failure, now noted with acute kidney injury. Thank you for this consultation. We will follow with you. Job ID: [id number] [facility]
--- NOTE | 2019-09-08 23:59 | CON ---
DATE OF CONSULTATION: 09/08/2019 REASON FOR CONSULTATION: Sepsis is in the setting of systemic lupus. HISTORY OF PRESENT ILLNESS: 33-year-old who has a history of systemic lupus erythematosus, hypertension, asthma, who had been on low-dose prednisone, Norvasc, and developed worsening dyspnea starting the day before admission. On arrival, O2 saturations were 75 room air, and she was tachycardic at 130, BP 103/64, temperature 101.8. She appeared alert. She was in moderate respiratory distress and rhonchi present in both lung wood. Heart exam showed tachycardia, but no murmurs. The abdomen is soft and other findings on admission included white cell count 3.1, hemoglobin 9.3, platelets 159 with 24% bands, 12% metamyelocytes. ABG; pH of 7.34, pCO2 of 25, PO2 of 59. Sodium 134, creatinine 4.15 with baseline of 0.8 on July 13, 2019. Bilirubin 0.6, AST 41, ALT 19, alkaline phosphatase 27. BNP 290. Albumin 3.0. Troponin 0.6. Urinalysis with 21 to 50 wbc's. COVID-19 not detected. Streptococcus pneumoniae antigen was positive and now we have 2 sets of blood cultures positive for Streptococcus pneumoniae. Admit chest x-ray showed right lung opacification. The patient had developed bradycardia and ACLS was started. She was given epi and bicarb, intubated emergently by Anesthesia, started on epinephrine drip, and is transferred to the ICU. She is currently on Rocephin, vancomycin, and azithromycin. She is starting to move around, according to the nurse, before the sedation today she was establishing eye contact and nodding when her name was called. PAST MEDICAL HISTORY: Prior episodes of pneumonia; reported systemic lupus erythematosus, on prednisone; asthma; and hypertension. PAST SURGICAL HISTORY: Negative. SOCIAL HISTORY: Lives in the area. Never smoker. No drug use. ALLERGIES: NONE. CURRENT MEDICATIONS: 1. Azithromycin. 2. Ceftriaxone. 3. Epinephrine. 4. Vancomycin. 5. Propofol. FAMILY HISTORY: Noncontributory. PHYSICAL EXAMINATION: VITAL SIGNS: T-max 100.9, blood pressure 109/75, pulse 119, respiratory rate 20 , O2 saturation 100 with FiO2 of 50. SKIN: The patient has bilateral groin catheters, one for dialysis, the other for venous access. Orogastric tube in place. No skin lesions of significance. HEENT: Sclerae white. Pupils are constricted and equal, reactive. NECK: No lymphadenopathy. No jugular vein distention. LUNGS: Symmetric air entry. No obvious crackles or wheezing. HEART: S1, S2 without murmurs. Regular rate. ABDOMEN: Soft. No evidence of ascites or organomegaly. No bladder distention or guarding. EXTREMITIES: No joint inflammatory activity noted. No edema. Pulses 1+ in dorsalis pedis. She is moving all extremities but does not follow commands. LABORATORY DATA: Latest laboratory values: White cell count 2.4, hemoglobin 8.5, MCV 91, platelets 146 with 22% bands. Sodium 136, creatinine 4.18, albumin 2.7. Repeat chest x-ray from this morning, increasing veil-like opacity in the right thorax. ASSESSMENT: 1. Systemic lupus erythematosus, on steroids. 2. Streptococcus pneumoniae bacteremia likely pneumonia right side with parapneumonic effusion. 3. Acute renal failure. 4. Sepsis DISCUSSION: The patients with systemic lupus erythematosus are at increased risk of severe Streptococcus pneumoniae sepsis, complications due to immunodeficiency particularly complement in antibody-mediated opsonization of the bacteria. Streptococcus pneumonia vaccination is recommended in patients with SLE, but is not clear if she ever had been vaccinated. The area of involvement at this time appears to be the right lung. Other sites of involvement are not completely ruled out. Possibility of meningitis cannot be ruled out at the moment, and we will increase the dose of Rocephin to b.i.d., in that regard, discontinue azithromycin. Check HIV serology, complement, and anti-double stranded DNA. She may need stress corticosteroid dosing for the moment. Depending on MS changes identified, may require CSF eval. Job ID: [id number] [facility]
[2019-09-09] MEDS: Sodium Bicarbonate 150 MEQ in Dextrose 5% in Water 1,000 ML IV SCH (00:50)
[2019-09-09] MEDS: EPINEPHrine 4 MG in Dextrose 5% in Water 250 ML IV SCH ×2 (00:50→13:27)
[2019-09-09] MEDS: Hydrocortisone Sod Succ/PF 100 mg/2 ml Vial IVP SCH ×4 (05:16→23:36)
[2019-09-09] MEDS: Propofol 1,000 MG/100 ML VIAL IV PRN ×4 (05:16→23:37)
[2019-09-09] MEDS: Sodium Chloride 0.9% 1,000 ML IV SCH (05:58)
--- NOTE | 2019-09-09 06:11 | OP ---
DATE OF PROCEDURE: 09/08/2019 PROCEDURE: Femoral artery line placement. DESCRIPTION OF PROCEDURE: Right groin was prepped with Betadine. Femoral artery was easily cannulated. Wire was easily passed. A 5-Serbian catheter was inserted, sewn in place x2, connected to an A-line monitor. Sterile dressing was applied. Job ID: [id number]
[2019-09-09 06:15] LABS: Band 23 % (5-11); Hemoglobin 6.5 g/dL (12.0-16.0); Lymphocytes 6 % (21-51); MDiff Complete? YES; Mean Corpuscular HGB CONC 31.9 g/dL (32.0-36.0); Mean Corpuscular Hemoglobin 27.3 pg (27.0-31.0); Mean Corpuscular Volume 85.5 fL (78.0-98.0); Mean Platelet Volume 12.5 fL (7.4-10.4); Metamyelocyte 2 % (0-0); Monocytes 1 % (0-10); Neutrophil 68 % (42-75); Platelet Count 89 thou/uL (130-400); Platelet Morphology Comment Appears Decreased; RBC Distribution Width 15.6 % (11.5-14.5); Red Blood Cell (RBC) Count 2.39 mill/uL (4.20-5.40)
[2019-09-09 06:19] LABS: ALT (SGPT) 48 U/L (8-55); AST (SGOT) 65 U/L (5-34); Albumin 2.3 g/dL (3.5-5.0); Alkaline Phosphatase 50 U/L (40-110); Anion Gap 25 mmol/L (10-20); BUN (Urea Nitrogen) 41 mg/dL (7.0-18.7); Bilirubin, Total 0.5 mg/dL (0.2-1.2); Calc. Creatinine Clearance 28 mL/min (70-130); Calcium 6.5 mg/dL (7.8-10.44); Carbon Dioxide 25 mmol/L (22-29); Chloride 92 mmol/L (98-107); Estimated GFR-MDRD 14; Globulin 4.7 g/dL (2.4-3.5); Glucose 172 mg/dL (70-105); Potassium 3.3 mmol/L (3.5-5.1); Sodium 139 mmol/L (136-145)
[2019-09-09 08:06] LABS: Actual Bicarbonate (HCO3a) 24.4 mEq/L (22-28); Base Excess (BEa) 3.2 mEq/L (-2.0 to +3.0); Carboxyhemoglobin (COHb) 1.8 gm% (0.0-3.0); Hemoglobin (Hb) 6.4 g/dL (12.0-16.0); O2 Tension (PaO2), arterial 108.3 mmHg (80.0-100.0); Potassium - ABG Lab 3.16 mmol/L (3.70-5.30)
[2019-09-09 08:08] LABS: pH, Arterial 7.63 (7.35-7.45)
[2019-09-09 08:09] LABS: ALV-art Gradient 147.275 (0-20); CO2 Tension 23.7 mmHg (35.0-45.0); Puncture Site ALINE
--- NOTE | 2019-09-09 08:50 | PDOC.HOSPP ---
- Subjective Encounter Date: 09/09/19 Encounter Time: 08:00 Subjective: overnight, anuric, dialysis initiated. This morning, intubated but alert and follows commands, nods head to yes/no questions. Denies pain - Objective Vital Signs & Weight: Vital Signs (12 hours) Resp BP 09/09/19 07:23 110/74 09/09/19 06:00 30 H 09/09/19 04:00 30 H 09/09/19 02:00 30 H 09/09/19 00:00 30 H 09/08/19 22:00 30 H Weight Admit Weight 213 lb Weight 213 lb 13.574 oz Most Recent Monitor Data Heart Rate from ECG 128 NIBP 113/76 NIBP BP-Mean 88 Respiration from ECG 0 SpO2 100 I&O: 09/08/19 09/09/19 09/10/19 06:59 06:59 06:59 Intake Total 3729.5 Output Total 220 635 Balance -220 3094.5 Result Diagrams: 09/09/19 05:25 09/09/19 05:25 Hospitalist ROS - Review of Systems ROS unobtainable: due to endotracheal tube (limited ROS due to intubation but nods to yes/no questions) Constitutional: reports: fever Eyes: denies: pain Respiratory: denies: pleuritic pain Cardiovascular: denies: chest pain, palpitations Gastrointestinal: denies: abdominal pain - Medication Medications: Active Medications Generic Name Dose Route Start Last Admin Trade Name Freq PRN Reason Stop Dose Admin Acetaminophen 650 mg 09/08/19 00:20 09/08/19 16:15 Tylenol PO 650 mg Q4H PRN Administration Headache/Fever/Mild Pain (1-3) Hydrocortisone Sodium Succinate 50 mg 09/08/19 18:00 09/09/19 05:16 Solu-Cortef IVP 50 mg Q6HR GIA Administration Sodium Chloride 1,000 mls @ 50 mls/hr 09/08/19 00:15 09/09/19 05:58 Normal Saline 0.9% IV Not Given .Q20H GIA Epinephrine 4 mg/ Dextrose/ 254 mls @ 0 mls/hr 09/08/19 03:15 09/09/19 00:50 Water IV 254 mls INF GIA Administration Protocol Titrate Vancomycin HCl 500 mg/ Sodium 100 mls @ 100 mls/hr 09/08/19 09:00 09/08/19 12 :18 Chloride IVPB 100 mls 0900 GIA Administration Ceftriaxone Sodium 2 gm/ 100 mls @ 200 mls/hr 09/08/19 21:00 09/08/19 21:06 Sodium Chloride IVPB 100 mls BID GIA Administration Morphine Sulfate 2 mg 09/08/19 05:32 09/08/19 13:59 Morphine SLOW IVP 10/08/19 05:32 2 mg Q1H PRN Administration BREAKTHROUGH PAIN/Agitation Propofol 1,000 mg 09/08/19 05:32 09/09/19 05:16 Diprivan IV 10/08/19 05:32 1,000 mg INF PRN Administration TO ACHIEVE GOAL RASS Protocol Sodium Chloride 10 ml 09/08/19 09:00 09/08/19 21:07 Flush - Normal Saline IVF 10 ml Q12HR GIA Administration - Exam General Appearance: NAD, awake alert General - other findings: following commands and responds to yes/no questions with nod Eye: PERRL, anicteric sclera Heart: no murmur, no gallops, no rubs Heart - other findings: tachycardic, sinus on tele HR 120-130s Gastrointestinal: soft, non-tender, non-distended, normal bowel sounds Extremities: no edema Extremities - other findings: left femoral trialysis; right femoral a-line Psychiatric: normal affect, normal behavior Psychiatric - other findings: responds to command and nods head to yes/no questions Hosp A/P (1) Sepsis Code(s): A41.9 - SEPSIS, UNSPECIFIED ORGANISM Status: Acute (2) ARDS (adult respiratory distress syndrome) Code(s): J80 - ACUTE RESPIRATORY DISTRESS SYNDROME Status: Acute (3) Community acquired pneumonia Code(s): J18.9 - PNEUMONIA, UNSPECIFIED ORGANISM Status: Acute (4) KORI (acute kidney injury) Code(s): N17.9 - ACUTE KIDNEY FAILURE, UNSPECIFIED Status: Acute (5) Neutropenia associated with infection Code(s): D70.3 - NEUTROPENIA DUE TO INFECTION Status: Acute (6) Anemia Code(s): D64.9 - ANEMIA, UNSPECIFIED Status: Acute (7) SLE (systemic lupus erythematosus) Code(s): M32.9 - SYSTEMIC LUPUS ERYTHEMATOSUS, UNSPECIFIED Status: Acute - Plan * acute hypoxic respiratory failure (improving) * CAP * Covid -ve * BCx and urine Ag growing strep pneumoniae * adjusted ABx as per ID; febrile overnight * last ABG pH 7.6, acute respiratory alkalosis, RR decreased * * discontinue bicarb * vanc, ceftriaxone as per ID * attempt to wean off vent as per PCCM * anuric KORI * no history of renal dysfucntion per mother prior to presentation * anuric overnight * C3 and C4 low, pending dsDNA * UA showing no RBC casts or dysmorphic RBCs * left trialysis in place; starting dialysis * 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, in which case additional immunosuppression (in addition to steroids) may be required; defer to nephrology * * Anemia, thrombocytopenia * 4T score 1 but considering 2g decrease in HgB and thrombocytopnia, stopped heparin and started SCDs * repeat CXR; continue high dose steroids; considering improvement and CXR findings unlikely DAH so will hold additional immunosppressives at this point * * NSTEMI Type 2 * likely demand ischemia related to sepsis; patient has no chest pain or significant risk factors for CAD * * SLE * patient was started on prednisone 10mg and hydroxychloroquine the week prior to presentation * considering fulminant strep pneumonia, hydroxychloroquine and prednisone- induced immunosuppression may have contributed to severe presentation * * hold prednisone and hydroxychloroquine * * dispo/PPx * full code. mother is surrogate. Mother was updated regarding improvement and ongoing management (09/08) * DVT PPx - SCDs * GI PPx - no Ix
[2019-09-09] MEDS: cefTRIAXone\\ROCEPHIN 2 GM in Sodium Chloride 0.9% 100 ML IVPB SCH ×2 (09:11→20:29)
[2019-09-09] MEDS ORDERED: Heparin 10,000 UNITS/ 10 ML VIAL ONE (09:41)
[2019-09-09] MEDS: Vancomycin HCl 500 MG in Sodium Chloride 0.9% 100 ML IVPB SCH (10:43)
[2019-09-09] MEDS ORDERED: HOLD VANCOMYCIN FOR LEVEL >20 FS SCH (11:15)
[2019-09-09] MEDS ORDERED: Vancomycin 1 GM in Premix Bag 1 BAG IVPB SCH (11:15)
[2019-09-09] MEDS ORDERED: Vancomycin HCl 1.25 GM in Sodium Chloride 0.9% 250 ML 250 ML IVPB SCH (11:15)
[2019-09-09] MEDS ORDERED: Vancomycin HCl 500 MG in Sodium Chloride 0.9% 100 ML IVPB SCH (11:15)
--- NOTE | 2019-09-09 14:09 | PRG ---
DATE OF SERVICE: 09/09/2019 SUBJECTIVE: Ms. Barlow is intubated. She keeps her eyes open, briefly sometimes there is a perception that she is establishing eye contact, but I am not sure about that. She seems to sometimes nod when I ask questions, but does not follow commands in a clear-cut way. OBJECTIVE: VITAL SIGNS: T-max 100.3 at 8 a.m., now she is 99.5. BP 130/74, pulse 114, and O2 saturations are 100 on 40 FiO2. HEENT: Her pupils are equal and sclerae are white. LUNGS: Symmetric air entry. No obvious adventitious sounds. HEART: S1 and S2, regular rate. ABDOMEN: Not distended. No bowel sounds are noted. : She has indwelling Hagen catheter. She has been positive for the past 24 hours at 3000. She is now positive at 657. SKIN: Has the lines unchanged. LABORATORY DATA: White cell count is up to 10,000. Hemoglobin 6.5, which is down from previous quite significantly. Platelets are down to 89,000, with 22% bands. Creatinine is 4.38, which is higher than on admission. The albumin is 2.3. Lactic acid 18.1. Complements were very low at 29 and 6. ASSESSMENT AND DISCUSSION: Systemic lupus erythematosus, hypocomplementemia, Strep pneumoniae bacteremia with sepsis, pneumonia, and possible IT QUALITY ANALYST infection, acute renal failure. The patient is currently on ceftriaxone b.i.d. and vancomycin, also on hydrocortisone. She may need to be transitioned to Solu-Medrol since she seems to have a quite active systemic lupus erythematosus. Job ID: [id number]
--- NOTE | 2019-09-09 14:18 | PRG ---
DATE OF SERVICE: 09/09/2019 SUBJECTIVE: The patient is seen and examined, still on life support. OBJECTIVE: VITAL SIGNS: Blood pressure 155/100 with a pulse of 88, and O2 saturation 100% on pressors. HEENT: Remarkable for endotracheal tube in place. CARDIOVASCULAR SYSTEM: First and second heart sounds. RESPIRATORY SYSTEM: Revealed vented sounds. DIGESTIVE SYSTEM: Revealed a benign abdomen. EXTREMITIES: No peripheral edema. SKIN: No new gross rash. : The patient is virtually anuric. LABORATORY INVESTIGATION: Showed a creatinine of 4.38 with BUN of 41, potassium of 3.3, and calcium 6.5. CBC showed hemoglobin of 6.5 and platelet of 89,000. IMPRESSION: 1. Acute tubular necrosis, which seems to be becoming anuric. 2. Metabolic acidosis, improved. 3. Mild hypokalemia in the context of improved metabolic profile. 4. Sepsis. PLAN: 1. The patient to be dialyzed again today with a high potassium bath. We will adjust admission temperature to 35 in order to improve the hemodynamics. 2. Further management will be dependent on the clinical course. No ultrafiltration until the patient is stabilized hemodynamically. 3. Further management to be dependent on the clinical course. Job ID: [id number] [facility]
--- NOTE | 2019-09-09 15:25 | RAD ---
EXAM: XR Chest 1 View Portable PROVIDED CLINICAL HISTORY: On ventilator. Follow-up evaluation. COMPARISON: 09/08/2019 FINDINGS: Endotracheal tube and nasogastric tubes remain in place. Pleural-parenchymal changes are seen in the right lung base with findings suggesting consolidation right lung base. This may represent right pleural effusion and atelectasis. Superimposed pneumonia is a possibility. Mild left perihilar inters titial densities are present. Right cardiac border is obscured. No other interval change. IMPRESSION: Pleural and parenchymal changes are again seen at the right lung base with consolidation seen. Findin gs may be related to right pleural effusion and atelectasis, but superimposed pneumonia is a possibility. Mild interstitial prominence is present on the left. Continued follow-up is recommended.
--- NOTE | 2019-09-09 16:10 | EKG ---
Test Reason : Blood Pressure : / mmHG Vent. Rate : 143 BPM Atrial Rate : 143 BPM P-R Int : 144 ms QRS Dur : 068 ms QT Int : 274 ms P-R-T Axes : 075 043 038 degrees QTc Int : 422 ms Sinus tachycardia Possible Left atrial enlargement Borderline ECG Confirmed by LISSETH SNYDER DO ([id number]), index editor RODRÍGUEZ LUCIO ([id number] on 09/09/2019 4:09:14 PM Referred By: Confirmed By:LISSETH SNYDER DO
[2019-09-09] MEDS ORDERED: Sterile Water 10 ML VIAL IVP SCH (17:45)
[2019-09-09] MEDS ORDERED: Activase 2 MG VIAL CATH SCH (17:45)
--- NOTE | 2019-09-09 17:51 | PRG ---
DATE OF SERVICE: 09/09/2019 SUBJECTIVE: Lorena Balrow has been slowly coming off pressors. Hemodynamics are better. OBJECTIVE: VITAL SIGNS: Blood pressure 125/74, heart rate is 110, and respiratory rates in the 20s. Her IMV ventilation was turned down today. Her bicarb drip has been discontinued. LUNGS: Remarkable for coarse equal breath sounds. HEART: Regular rhythm. ABDOMEN: Soft. EXTREMITIES: Without edema. LABORATORY DATA: White count 10, hemoglobin 6.5, and platelets 89. Electrolytes are unremarkable. BUN 41 and creatinine 4.38. IMPRESSION AND PLAN: 1. Respiratory failure secondary to strep pneumonia, pneumonia with sepsis. 2. Acute renal failure secondary to sepsis. She probably needs blood with her next dialysis. She appears to be waking up from neurological standpoint after her code, which is a big bonus. We will continue current care. Job ID: [id number]
[2019-09-09] MEDS ORDERED: Propofol 1,000 MG/100 ML VIAL IV ONE (19:28)
[2019-09-09] MEDS: Acetaminophen 325 MG TAB PO PRN (20:30)
[2019-09-09] MEDS: Lorazepam 2 MG/ML VIAL SLOW IVP PRN (23:38)
[2019-09-10] MEDS: Sodium Chloride 0.9% 1,000 ML IV SCH (04:37)
[2019-09-10] MEDS: Propofol 1,000 MG/100 ML VIAL IV PRN ×4 (04:41→22:57)
[2019-09-10] MEDS: Hydrocortisone Sod Succ/PF 100 mg/2 ml Vial IVP SCH ×4 (05:43→22:59)
[2019-09-10] MEDS: Acetaminophen 325 MG TAB PO PRN (05:46)
[2019-09-10 06:22] LABS: Anion Gap 19 mmol/L (10-20); BUN (Urea Nitrogen) 43 mg/dL (7.0-18.7); Calc. Creatinine Clearance 31 mL/min (70-130); Calcium 6.6 mg/dL (7.8-10.44); Carbon Dioxide 25 mmol/L (22-29); Chloride 96 mmol/L (98-107); Estimated GFR-MDRD 16; Potassium 4.9 mmol/L (3.5-5.1); Sodium 135 mmol/L (136-145)
[2019-09-10 06:25] LABS: Glucose 56 mg/dL (70-105)
[2019-09-10 06:41] LABS: Band 15 % (5-11); Hemoglobin 7.9 g/dL (12.0-16.0); Hypochromia SLIGHT = 6-15 cells (100X) (0-5/hpf); Lymphocytes 9 % (21-51); MDiff Complete? YES; Mean Corpuscular HGB CONC 34.6 g/dL (32.0-36.0); Mean Corpuscular Hemoglobin 29.9 pg (27.0-31.0); Mean Corpuscular Volume 86.4 fL (78.0-98.0); Mean Platelet Volume 6.6 fL (7.4-10.4); Monocytes 7 % (0-10); Neutrophil 69 % (42-75); Platelet Count 41 thou/uL (130-400); Platelet Morphology Comment Appears Decreased; RBC Distribution Width 14.6 % (11.5-14.5); Red Blood Cell (RBC) Count 2.63 mill/uL (4.20-5.40); White Blood Cell (WBC) Count 15.4 thou/uL (4.8-10.8)
[2019-09-10] MEDS ORDERED: Dextrose 50% Abboject 50 ML SYRINGE ONE (07:03)
[2019-09-10] MEDS ORDERED: Dextrose 5% in Water 1,000 ML IV PRN (07:06)
--- NOTE | 2019-09-10 07:53 | RAD ---
EXAM: XR Chest 1 View Portable PROVIDED CLINICAL HISTORY: On ventilator COMPARISON: 09/09/2019 FINDINGS: Endotracheal tube and nasogastric tube remain in place. Pleural and parenchymal changes are again see n at the right lung base which may represent moderate size right pleural effusion and atelectasis. Superimposed pneumonia is a possibility. There is suggestion of a very small left pleural effusion. R ight cardiac border is obscured. No other interval change. IMPRESSION: Given differences in technique, chest is overall stable when compared to prior exam.
[2019-09-10 07:56] LABS: Actual Bicarbonate (HCO3a) 27.4 mEq/L (22-28); Base Excess (BEa) 3.7 mEq/L (-2.0 to +3.0); Calcium, Ionized 0.86 mmol/L (1.12-1.30); Carboxyhemoglobin (COHb) 0.9 gm% (0.0-3.0); Hemoglobin (Hb) 7.6 g/dL (12.0-16.0); O2 Tension (PaO2), arterial 128.9 mmHg (80.0-100.0); Potassium - ABG Lab 4.35 mmol/L (3.70-5.30); pH, Arterial 7.49 (7.35-7.45)
[2019-09-10 07:57] LABS: Puncture Site ALINE
--- NOTE | 2019-09-10 08:21 | PDOC.HOSPP ---
- Subjective Encounter Date: 09/10/19 Encounter Time: 08:00 Subjective: no overnight events. This morning, remains intubated and sedated. BCx strep, respiratory culture staph aureus. bilateral infiltrates appear worse on CXR but previous xray overpenetrated. - Objective Vital Signs & Weight: Vital Signs (12 hours) Pulse Resp BP 09/10/19 07:45 110 H 141/85 H 09/10/19 06:00 16 09/10/19 04:00 16 09/10/19 03:37 106 H 09/10/19 02:06 107 H 09/10/19 02:00 23 H 09/10/19 00:00 18 09/09/19 22:11 117 H 09/09/19 22:00 20 Weight Admit Weight 213 lb Weight 213 lb 13.574 oz Most Recent Monitor Data Heart Rate from ECG 108 NIBP 141/100 NIBP BP-Mean 113 Respiration from ECG 21 SpO2 98 I&O: 09/09/19 09/10/19 09/11/19 06:59 06:59 06:59 Intake Total 3729.5 3303 Output Total 635 96 Balance 3094.5 3207 Result Diagrams: 09/10/19 04:35 09/10/19 04:35 Hospitalist ROS - Review of Systems ROS unobtainable: due to endotracheal tube - Medication Medications: Active Medications Generic Name Dose Route Start Last Admin Trade Name Freq PRN Reason Stop Dose Admin Acetaminophen 650 mg 09/08/19 00:20 09/10/19 05:46 Tylenol PO 650 mg Q4H PRN Administration Headache/Fever/Mild Pain (1-3) Hydrocortisone Sodium Succinate 50 mg 09/08/19 18:00 09/10/19 05:43 Solu-Cortef IVP 50 mg Q6HR GIA Administration Sodium Chloride 1,000 mls @ 50 mls/hr 09/08/19 00:15 09/10/19 04:37 Normal Saline 0.9% IV Not Given .Q20H GIA Epinephrine 4 mg/ Dextrose/ 254 mls @ 0 mls/hr 09/08/19 03:15 09/09/19 13:27 Water IV 254 mls INF GIA Administration Protocol Titrate Ceftriaxone Sodium 2 gm/ 100 mls @ 200 mls/hr 09/08/19 21:00 09/09/19 20:29 Sodium Chloride IVPB 100 mls BID GIA Administration Lorazepam 2 mg 09/08/19 05:32 09/09/19 23:38 Ativan SLOW IVP 10/08/19 05:32 2 mg Q1H PRN Administration Breakthrough agitation Morphine Sulfate 2 mg 09/08/19 05:32 09/08/19 13:59 Morphine SLOW IVP 10/08/19 05:32 2 mg Q1H PRN Administration BREAKTHROUGH PAIN/Agitation Propofol 1,000 mg 09/08/19 05:32 09/10/19 04:41 Diprivan IV 10/08/19 05:32 1,000 mg INF PRN Administration TO ACHIEVE GOAL RASS Protocol Sodium Chloride 10 ml 09/08/19 09:00 09/09/19 20:29 Flush - Normal Saline IVF 10 ml Q12HR GIA Administration - Exam General - other findings: intubated and sedated Neck: no JVD Heart: no murmur, no gallops, no rubs Heart - other findings: sinus tachycardia, improving Respiratory: CTAB, no wheezes, no rales, no ronchi Gastrointestinal: soft, non-tender, non-distended, normal bowel sounds Extremities: no edema Hosp A/P (1) Sepsis Code(s): A41.9 - SEPSIS, UNSPECIFIED ORGANISM Status: Acute (2) ARDS (adult respiratory distress syndrome) Code(s): J80 - ACUTE RESPIRATORY DISTRESS SYNDROME Status: Acute (3) Community acquired pneumonia Code(s): J18.9 - PNEUMONIA, UNSPECIFIED ORGANISM Status: Acute (4) KORI (acute kidney injury) Code(s): N17.9 - ACUTE KIDNEY FAILURE, UNSPECIFIED Status: Acute (5) Neutropenia associated with infection Code(s): D70.3 - NEUTROPENIA DUE TO INFECTION Status: Acute (6) Anemia Code(s): D64.9 - ANEMIA, UNSPECIFIED Status: Acute (7) SLE (systemic lupus erythematosus) Code(s): M32.9 - SYSTEMIC LUPUS ERYTHEMATOSUS, UNSPECIFIED Status: Acute - Plan * acute hypoxic respiratory failure (improving) * CAP * COVID -ve, BCX strep, RCx staph aureus * on vanc and ceftriaxone; remains febrile * echo shows mild pericardial effusion, no vegitation; considering persistently febrile despite ABx, if repeat BCx +ve will consider TAMELA * CXR appears worse b/l lower field opacities but previous xray overpenetrated in comparison * * vanc, ceftriaxone; apply ID recs * Hemodynamic, ventilation per PCCM * daily CXR * anuric KORI * no history of renal dysfucntion per mother prior to presentation * remains anuric * C3 and C4 low, pending dsDNA * UA showing no RBC casts or dysmorphic RBCs * left trialysis in place; dialysis initiated (09/08) * 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, in which case additional immunosuppression (in addition to steroids) may be required; defer to nephrology * * apply nephro recs * * Anemia, thrombocytopenia * HgB 7.9 * 4T score 1 but considering 2g decrease in HgB and thrombocytopnia, stopped heparin and started SCDs * likely related to sepsis/SLE * * NSTEMI Type 2 * likely demand ischemia related to sepsis; patient has no chest pain or significant risk factors for CAD * * SLE * patient was started on prednisone 10mg and hydroxychloroquine the week prior to presentation * considering fulminant strep pneumonia, hydroxychloroquine and prednisone- induced immunosuppression may have contributed to severe presentation * * hold hydroxychloroquine * * dispo/PPx * full code. mother is surrogate. * DVT PPx - SCDs * GI PPx - no Ix
[2019-09-10 08:30] LABS: Vancomycin, Trough 12.3 ug/mL
[2019-09-10] MEDS: cefTRIAXone\\ROCEPHIN 2 GM in Sodium Chloride 0.9% 100 ML IVPB SCH ×2 (10:05→20:16)
[2019-09-10] MEDS: Dextrose 5 % And 0.9 % NaCl 1,000 ML IV SCH (10:10)
[2019-09-10] MEDS: Vancomycin HCl 750 MG in Sodium Chloride 0.9% 250 ML 250 ML IVPB SCH (10:11)
--- NOTE | 2019-09-10 10:39 | PRG ---
DATE OF SERVICE: 09/10/2019 OBJECTIVE: VITAL SIGNS: Blood pressure 127/73, heart rate is 109, respiratory rate 16. Trended ventilation rate down to 12. LUNGS: Remarkable for coarse breath sounds on the right. HEART: Regular rhythm. ABDOMEN: Soft. EXTREMITIES: Without asymmetry. LABORATORY DATA: White count is 15.4, hemoglobin 7.9, platelets 41,000, 69 segs, 15% bands. Her sedation is held until she awakens, but becomes very hypertensive. IMPRESSION: Community-acquired pneumonia with pneumococcus presenting with clinical sepsis, renal failure, and respiratory failure. She may have an effusion on the right that may need to be tapped. We will consider imaging in the morning if her radiograph has not improved using noncontrast chest CT. She will be dialyzed today. She is off pressors. She is slowly improving, but not at a point where we can consider weaning and extubation. Blood gas today shows pH 7.9, CO2 of 37, pO2 of 128. FiO2 is down to 40%. Her PEEP was cut back to 5 and her rate was decreased to 12. CRITICAL CARE TIME: 30 minutes. Job ID: [id number]
[2019-09-10] MEDS ORDERED: Rocuronium Bromide 10 MG/ML (10ML VIAL) ONE (12:42)
[2019-09-10] MEDS ORDERED: Midazolam HCl 5 mg/5 ml Vial ONE (14:20)
[2019-09-10] MEDS ORDERED: Fentanyl 100 MCG/2 ML VIAL ONE (14:20)
[2019-09-10] MEDS ORDERED: Sodium Chloride 0.9% 20 ML ONE (14:22)
[2019-09-10] MEDS ORDERED: Heparin 10,000 UNITS/1 ML VIAL ONE (14:22)
[2019-09-10] MEDS ORDERED: Bupivacaine PF 0.5% 30 ML VIAL ONE (14:22)
[2019-09-10] MEDS ORDERED: Lidocaine 1% w/Epinephrine 1:100K 20 ML VIAL ONE (14:22)
[2019-09-10] MEDS ORDERED: Sodium Chloride 0.9% 10 ML ONE (14:53)
--- NOTE | 2019-09-10 16:22 | PRG ---
DATE OF SERVICE: 09/10/2019 SUBJECTIVE: Ms. Barlow is still sedated. OBJECTIVE: VITAL SIGNS: T-max 100.4, blood pressure 140/80, pulse 103, O2 sat is 100% on 40% FiO2. HEENT: Pupils are reactive. LUNGS: Symmetric. Clear breath sounds. HEART: S1 and S2, regular rate. ABDOMEN: Soft, not distended. LABORATORY DATA: White cell count is up to 15.4, hemoglobin 7.9, and platelets 41. Creatinine is 4.06. The chest x-ray, pleural and parenchymal changes, right lung base. Echocardiogram with a small pericardial effusion. Trivial EF 55. Staph aureus from respiratory culture, probably colonization rather than pathogenic role. ASSESSMENT AND DISCUSSION: Systemic lupus erythematosus, hypocomplementemia, Strep pneumoniae bacteremia, sepsis, possible central nervous system infection, acute renal failure, currently on ceftriaxone and vancomycin and ADRIANNA is pending at the moment. She may have active systemic lupus erythematosus and may need higher doses of corticosteroids. Job ID: [id number]
--- NOTE | 2019-09-10 17:56 | RAD ---
Exam: Chest one view HISTORY:Central line placement Comparison: 09/10/2019 FINDINGS: Lines and tubes: Redemonstration of endotracheal tube and nasogastric tube. Interval placement of rig ht-sided HemoSplit osseous catheter with the distal tip projecting over the expected region of the cavoatrial junction. Left-sided internal jugular central venous catheter with the distal tip in the r ight atrium. Upper normal cardiac silhouette. Persistent pleural and parenchymal changes in the right hemithorax. Interval development of pleural and parenchymal changes in the left lung base. No pneumothorax. IMPRESSION: 1. Interval placement of a left-sided internal jugular central venous catheter and right-sided dialys is catheter, as described above. No pneumothorax. 2. Worsening pleural and parenchymal changes lung bases.
--- NOTE | 2019-09-10 21:39 | OP ---
DATE OF PROCEDURE: 09/10/2019 PREOPERATIVE DIAGNOSES: Lupus, acute renal failure, Streptococcus pneumoniae, dysfunctional temporary groin dialysis catheter, poor IV access, respiratory failure on a ventilator. POSTOPERATIVE DIAGNOSES: Lupus, acute renal failure, Streptococcus pneumoniae, dysfunctional temporary groin dialysis catheter, poor IV access, and respiratory failure on a ventilator. PROCEDURES PERFORMED: Right internal jugular cuff tunneled hemodialysis catheter, precurved AngioDynamics left IJ central line, fluoroscopy and ultrasound used. ANESTHESIA: General, local 0.5% Marcaine 30 mL mixed with 2% xylocaine with epinephrine 20 mL. DESCRIPTION OF PROCEDURE: The patient was taken to the operating room, where under general anesthesia on the ventilator, neck and chest prepared with ChloraPrep and draped in routine fashion. Local anesthetic mixture was infiltrated in the skin and subcutaneous tissue about all operative sites. Trocar catheter cannulated in the right internal jugular vein, threaded in J-wire as well as the left internal jugular vein using ultrasound guidance. Trocar catheter removed. Skin site enlarged sharply. Triple-lumen catheter placed in the left IJ using Seldinger technique, securing the catheter with 3-0 nylon suture. Removed the J-wire and aspirated each port with blood, flushed with saline solution. Sterile dressing applied. Precurved AngioDynamics cuffed tunneled hemodialysis catheter tunneled between the 2 incisions using the tunneling device, placed the thyroid cuff beneath the skin exit site over the chest and securing the catheter with 3-0 nylon suture. Sterile dressings applied. Small and medium size dilators were placed over the J-wire and the internal jugular vein. Dilator and Peel-Away sheath placed over the J-wire into the superior vena cava. Dilator and J-wire removed. Catheter placed with a Peel-Away sheath. Peel-Away sheath removed. Fluoroscopically, catheter was noted to be in good position. Hemodialysis catheter was aspirated with blood, flushed with saline solution and heparinized saline solution 1000 units of heparin per mL indicated volume on the port. Platysma was approximated with 4-0 Monocryl, skin with subdermal 4-0 Monocryl. Three Points glue applied. Sterile dressing was applied. Final fluoroscopic images reveal good line placement. Job ID: [id number]
[2019-09-11] MEDS: Propofol 1,000 MG/100 ML VIAL IV PRN ×5 (03:57→20:41)
[2019-09-11] MEDS: Dextrose 5 % And 0.9 % NaCl 1,000 ML IV SCH ×2 (03:57→23:08)
[2019-09-11] MEDS: Hydrocortisone Sod Succ/PF 100 mg/2 ml Vial IVP SCH ×4 (05:05→23:06)
[2019-09-11 05:48] LABS: Anion Gap 16 mmol/L (10-20); BUN (Urea Nitrogen) 41 mg/dL (7.0-18.7); Calc. Creatinine Clearance 33 mL/min (70-130); Calcium 6.8 mg/dL (7.8-10.44); Carbon Dioxide 27 mmol/L (22-29); Chloride 98 mmol/L (98-107); Estimated GFR-MDRD 16; Glucose 115 mg/dL (70-105); Magnesium 2.1 mg/dL (1.6-2.6); Phosphorus 5.1 mg/dL (2.3-4.7); Potassium 4.5 mmol/L (3.5-5.1); Sodium 136 mmol/L (136-145)
[2019-09-11 05:50] LABS: Hemoglobin 7.5 g/dL (12.0-16.0); Mean Corpuscular HGB CONC 33.6 g/dL (32.0-36.0); Mean Corpuscular Hemoglobin 29.6 pg (27.0-31.0); RBC Distribution Width 15.1 % (11.5-14.5); Red Blood Cell (RBC) Count 2.54 mill/uL (4.20-5.40); White Blood Cell (WBC) Count 18.3 thou/uL (4.8-10.8)
[2019-09-11 06:13] LABS: Band 19 % (5-11); Dohle Bodies SLIGHT; Lymphocytes 4 % (21-51); MDiff Complete? YES; Mean Platelet Volume 9.4 fL (7.4-10.4); Monocytes 1 % (0-10); Myelocyte 3 % (0-0); Neutrophil 73 % (42-75); Nucleated RBC 1 % (0); Platelet Count 40 thou/uL (130-400); Platelet Morphology Comment Appears Decreased; Toxic Granulation SLIGHT
--- NOTE | 2019-09-11 07:57 | RAD ---
PORTABLE CHEST: HISTORY: Ventilator. CCU followup. COMPARISON: 09/10/2019. FINDINGS: Bilateral effusions and bibasilar infiltrates are again seen, more prominent on the right. ET tube, NG Tube, and central line unchanged. IMPRESSION: No significant change from yesterday. POS: [facility]
--- NOTE | 2019-09-11 08:40 | PDOC.HOSPP ---
- Subjective Encounter Date: 09/11/19 Encounter Time: 07:00 Subjective: no overnight events. this morning, breathing over vent, intubated and sedated. - Objective Vital Signs & Weight: Vital Signs (12 hours) Temp Pulse Resp BP 09/11/19 07:11 105 H 141/102 H 09/11/19 06:00 26 H 09/11/19 04:00 22 H 09/11/19 02:40 105 H 132/102 H 09/11/19 02:00 24 H 09/11/19 00:12 106 H 126/84 09/11/19 00:00 98.9 F 22 H 09/10/19 22:00 25 H 09/10/19 21:59 107 H 120/81 Weight Admit Weight 213 lb Weight 222 lb 14.197 oz Most Recent Monitor Data Heart Rate from ECG 105 NIBP 132/99 NIBP BP-Mean 110 Respiration from ECG 12 SpO2 100 I&O: 09/10/19 09/11/19 09/12/19 06:59 06:59 06:59 Intake Total 3303 1739 Output Total 96 868 Balance 3207 871 Result Diagrams: 09/11/19 04:00 09/11/19 04:00 Hospitalist ROS - Review of Systems ROS unobtainable: due to endotracheal tube - Medication Medications: Active Medications Generic Name Dose Route Start Last Admin Trade Name Freq PRN Reason Stop Dose Admin Acetaminophen 650 mg 09/08/19 00:20 09/10/19 05:46 Tylenol PO 650 mg Q4H PRN Administration Headache/Fever/Mild Pain (1-3) Hydrocortisone Sodium Succinate 50 mg 09/08/19 18:00 09/11/19 05:05 Solu-Cortef IVP 50 mg Q6HR GIA Administration Epinephrine 4 mg/ Dextrose/ 254 mls @ 0 mls/hr 09/08/19 03:15 09/09/19 13:27 Water IV 254 mls INF GIA Administration Protocol Titrate Ceftriaxone Sodium 2 gm/ 100 mls @ 200 mls/hr 09/08/19 21:00 09/10/19 20:16 Sodium Chloride IVPB 100 mls BID GIA Administration Vancomycin HCl 750 mg/ Sodium 250 mls @ 250 mls/hr 09/09/19 11:15 09/10/19 10 :11 Chloride IVPB 250 mls WILLCALL GIA Administration Dextrose/Sodium Chloride 1,000 mls @ 50 mls/hr 09/10/19 08:45 09/11/19 03:57 D5 0.9% Ns IV 1,000 mls .Q20H GIA Administration Lorazepam 2 mg 09/08/19 05:32 09/09/19 23:38 Ativan SLOW IVP 10/08/19 05:32 2 mg Q1H PRN Administration Breakthrough agitation Morphine Sulfate 2 mg 09/08/19 05:32 09/08/19 13:59 Morphine SLOW IVP 10/08/19 05:32 2 mg Q1H PRN Administration BREAKTHROUGH PAIN/Agitation Propofol 1,000 mg 09/08/19 05:32 09/11/19 06:49 Diprivan IV 10/08/19 05:32 1,000 mg INF PRN Administration TO ACHIEVE GOAL RASS Protocol Sodium Chloride 10 ml 09/08/19 09:00 09/10/19 20:16 Flush - Normal Saline IVF 10 ml Q12HR GIA Administration - Exam General Appearance: NAD, awake alert Heart: no murmur, no gallops, no rubs Heart - other findings: sinus tachy, improved Respiratory: CTAB, no wheezes, no rales, no ronchi Gastrointestinal: soft, non-tender, non-distended, normal bowel sounds Extremities: no edema Hosp A/P (1) Sepsis Code(s): A41.9 - SEPSIS, UNSPECIFIED ORGANISM Status: Acute (2) ARDS (adult respiratory distress syndrome) Code(s): J80 - ACUTE RESPIRATORY DISTRESS SYNDROME Status: Acute (3) Community acquired pneumonia Code(s): J18.9 - PNEUMONIA, UNSPECIFIED ORGANISM Status: Acute (4) KORI (acute kidney injury) Code(s): N17.9 - ACUTE KIDNEY FAILURE, UNSPECIFIED Status: Acute (5) Neutropenia associated with infection Code(s): D70.3 - NEUTROPENIA DUE TO INFECTION Status: Acute (6) Anemia Code(s): D64.9 - ANEMIA, UNSPECIFIED Status: Acute (7) SLE (systemic lupus erythematosus) Code(s): M32.9 - SYSTEMIC LUPUS ERYTHEMATOSUS, UNSPECIFIED Status: Acute - Plan * acute hypoxic respiratory failure (improving) * CAP * COVID -ve, BCX strep, RCx MSSA; both susceptible to ceftriaxone * on vanc and ceftriaxone; last fever 09/09 4pm * echo shows mild pericardial effusion, no vegitation; considering persistently febrile despite ABx, if repeat BCx +ve will consider TAMELA * CXR appears worse b/l lower field opacities but previous xray overpenetrated in comparison * * vancomycin can be discontinued; will await ID recs * Hemodynamics, ventilation per PCCM * daily CXR * 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 * anuric KORI * no history of renal dysfucntion per mother prior to presentation * remains anuric * C3 and C4 low, pending dsDNA * UA showing no RBC casts or dysmorphic RBCs * left trialysis in place; dialysis initiated (09/08) * 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, in which case additional immunosuppression (in addition to steroids) may be required; defer to nephrology * * apply nephro recs * * Anemia, thrombocytopenia * stable (09/10) * 4T score 1 but considering 2g decrease in HgB and thrombocytopnia, stopped heparin and started SCDs * likely related to sepsis/SLE * * NSTEMI Type 2 * likely demand ischemia related to sepsis; patient has no chest pain or significant risk factors for CAD * * SLE * patient was started on prednisone 10mg and hydroxychloroquine the week prior to presentation * considering fulminant strep pneumonia, hydroxychloroquine and prednisone- induced immunosuppression may have contributed to severe presentation * * hold hydroxychloroquine * * dispo/PPx * full code. mother is surrogate. * DVT PPx - SCDs * GI PPx - started pantoprazole
[2019-09-11] MEDS ORDERED: Calcium Gluconate 9.2 MEQ in Sodium Chloride 0.9% 100 ML IVPB SCH (08:45)
[2019-09-11] MEDS ORDERED: Sodium Chloride 0.9% (PF) 10 ML VIAL FS PRN (08:54)
[2019-09-11] MEDS ORDERED: Pantoprazole 40 MG VIAL IVP SCH (09:00)
[2019-09-11] MEDS: cefTRIAXone\\ROCEPHIN 2 GM in Sodium Chloride 0.9% 100 ML IVPB SCH ×2 (09:30→20:25)
[2019-09-11] MEDS: Pantoprazole 40 MG VIAL IVP SCH (09:39)
[2019-09-11 09:47] LABS: Vancomycin, Random 12.1 ug/mL (See Comment)
[2019-09-11] MEDS ORDERED: Epoetin (ESRD) 20,000 UNITS/ML SC SCH (11:00)
[2019-09-11] MEDS ORDERED: EPOETIN ALFA-EPBX (ESRD) 10,000 UNIT/ML VIAL SC SCH (11:15)
[2019-09-11] MEDS: Vancomycin HCl 750 MG in Sodium Chloride 0.9% 250 ML 250 ML IVPB SCH (12:08)
[2019-09-11] MEDS: Lorazepam 2 MG/ML VIAL SLOW IVP PRN ×3 (13:57→23:33)
[2019-09-11] MEDS: Morphine 2 MG/ML SYRINGE SLOW IVP PRN (15:10)
[2019-09-11] MEDS: Dextrose 50% Abboject 50 ML SYRINGE SLOW IVP PRN ×2 (16:07→16:44)
[2019-09-11] MEDS ORDERED: Dextrose 50% Abboject 50 ML SYRINGE SLOW IVP PRN (16:33)
--- NOTE | 2019-09-11 17:05 | ULT ---
ULTRASOUND VESSEL MAPPING DIALYSIS ACCESS: 09/11/19 INDICATIONS: End-stage renal disease. FINDINGS: The examination is limited due to soft tissue edema with the extremities as well as patient positioni ng. FINDINGS: RIGHT UPPER EXTREMITY BRACHIAL ARTERY: 0.39 cm RADIAL ARTERY: 0.19 cm ULNAR ARTERY: 0.17 cm CEPHALIC VEIN There is occlusive thrombus seen within the right cephalic vein diffusely throughout the right upper arm and forearm. BASILIC VEIN There is occlusive thrombus within the right basilic vein within the upper arm. The basilic vein in t he forearm was not well seen on this patient due to positioning. Right axillary vein was not visualized on the patient due to restraints. LEFT UPPER EXTREMITY BRACHIAL ARTERY: 0.38 cm RADIAL ARTERY: 0.16 cm ULNAR ARTERY: 0.21 cm CEPHALIC VEIN The left cephalic vein was only visualized at the antecubital fossa and was noncompressible and measu red up to 0.16 cm at the level of the shoulder. BASILIC VEIN The visualized left basilic vein at the antecubital fossa was noncompressible suspicious for thrombus . The left internal jugular vein and left subclavian vein were not visualized due to bandaging. The visualized left subclavian vein demonstrated appropriate flow. IMPRESSION: 1. Heavily limited predialysis access duplex examination due to patient positioning, bandaging, and restraints. There is also limitations due to soft tissue edema. 2. Findings suspicious for completely occlusive thrombus within the cephalic vein in the right u pper arm and forearm. Right basilic vein was not seen within the forearm region. The visualized basil ic vein within the upper arm was not compressible suspicious for occlusion. Flow was present within t he right internal jugular and right subclavian vein. Right axillary vein was not well seen. 3. Nonvisualization of the majority of the left basilic vein. The left basilic vein at the level of the antecubital fossa was noncompressible suspicious for complete occlusion of the left basilic v ein. 4. Poor visualization of the left cephalic vein with noncompression seen at the level of the ant ecubital fossa suspicious for occlusive thrombus of the left cephalic vein. POS: [facility]
[2019-09-11 17:42] LABS: Glucose 178 mg/dL (70-105)
--- NOTE | 2019-09-11 21:18 | PRG ---
DATE OF SERVICE: 09/11/2019 SUBJECTIVE: The patient is seen and examined, seems to be doing okay, but still anuric. OBJECTIVE: VITAL SIGNS: Noted with the following vital signs; blood pressure 127/73, respiratory rate of 23, O2 saturation 99%. HEENT: Remarkable for endotracheal tube in place. CARDIOVASCULAR SYSTEM: First and second heart sounds were heard. RESPIRATORY SYSTEM: Revealed vented sounds. DIGESTIVE SYSTEM: Revealed a benign abdomen. EXTREMITIES: No peripheral edema. LABORATORY INVESTIGATIONS: Showed white count of 18.3 with a hemoglobin of 7.5, platelet of 40,000. Chemistry showed a creatinine of 3.95 with BUN of 41. IMPRESSION: 1. Dense acute tubular necrosis in the context of sepsis. 2. Worsening thrombocytopenia, query cause may be related to sepsis. 3. Metabolic acidosis, resolved. 4. Anemia. PLAN: 1. The patient to be initiated on erythropoiesis stimulating agents. 2. We will begin to avoid the use of heparin during dialysis until this thrombocytopenia is figured out. 3. Further management will be dependent on the clinical course. We will dialyze the patient today and plan on possibly dialyzing the patient tomorrow once the patient is able to be extubated or renal function improves. Thank you for this consultation. We will follow with you. Job ID: [id number]
--- NOTE | 2019-09-11 21:45 | PRG ---
DATE OF SERVICE: 09/11/2019 SUBJECTIVE: Ms. Barlow has remained off pressors. The nurses tell me when sedation was held, she follows commands with the upper extremities plus gripping on command. She still has a resting tachycardia. Her temp appears to be finally down. OBJECTIVE: VITAL SIGNS: Blood pressure 132/93 and respiratory rates in the high 20s. Intake and outputs positive 871. She is up 6.5 L last 2 days prior. LUNGS: Remarkable for coarse equal breath sounds. HEART: Regular rhythm. ABDOMEN: Soft. EXTREMITIES: Without edema. IMPRESSION: Pneumococcal pneumonia with bacteremia, slowly improving. We will add steroids today and change her nebulized treatments to around the clock. Critical care time 35 min. Job ID: [id number] MTDD
[2019-09-11] MEDS: Bacteriostatic Water 30 ML VIAL FS PRN (23:06)
[2019-09-11] MEDS: methylPREDNISolone Sod Succ 40 MG VIAL IVP SCH (23:06)
[2019-09-12] MEDS: Propofol 1,000 MG/100 ML VIAL IV PRN ×5 (00:19→17:25)
[2019-09-12] MEDS: Lorazepam 2 MG/ML VIAL SLOW IVP PRN (01:32)
[2019-09-12] MEDS: methylPREDNISolone Sod Succ 40 MG VIAL IVP SCH ×4 (05:12→20:24)
[2019-09-12] MEDS: Hydrocortisone Sod Succ/PF 100 mg/2 ml Vial IVP SCH (05:12)
[2019-09-12] MEDS: Bacteriostatic Water 30 ML VIAL FS PRN ×2 (05:13→20:24)
[2019-09-12 05:29] LABS: Anion Gap 16 mmol/L (10-20); BUN (Urea Nitrogen) 30 mg/dL (7.0-18.7); Calc. Creatinine Clearance 35 mL/min (70-130); Calcium 7.5 mg/dL (7.8-10.44); Carbon Dioxide 25 mmol/L (22-29); Chloride 97 mmol/L (98-107); Estimated GFR-MDRD 17; Glucose 118 mg/dL (70-105); Potassium 4.3 mmol/L (3.5-5.1); Sodium 134 mmol/L (136-145)
[2019-09-12 06:24] LABS: Anisocytosis SLIGHT = 6-15 cells (100X) (0-5/hpf); Band 24 % (5-11); Hemoglobin 7.1 g/dL (12.0-16.0); Lymphocytes 12 % (21-51); MDiff Complete? YES; Mean Corpuscular HGB CONC 34.5 g/dL (32.0-36.0); Mean Corpuscular Hemoglobin 30.2 pg (27.0-31.0); Mean Corpuscular Volume 87.3 fL (78.0-98.0); Mean Platelet Volume 13.4 fL (7.4-10.4); Metamyelocyte 6 % (0-0); Monocytes 8 % (0-10); Myelocyte 4 % (0-0); Neutrophil 46 % (42-75); Nucleated RBC 1 % (0); Platelet Count 33 thou/uL (130-400); Platelet Morphology Comment Appears Decreased; RBC Distribution Width 15.8 % (11.5-14.5); Red Blood Cell (RBC) Count 2.36 mill/uL (4.20-5.40); White Blood Cell (WBC) Count 24.2 thou/uL (4.8-10.8)
--- NOTE | 2019-09-12 08:52 | RAD ---
CHEST 1 VIEW: Date: 09/12/2019 HISTORY: Respiratory insufficiency. FINDINGS: Life support tubes in place and stable. Bilateral vascular congestion and patchy alveolar and ground- glass opacity changes throughout both lungs. Evidence of pleural effusions, larger on the right side. IMPRESSION: Persistent probably slightly progressive alveolar and ground-glass opacity changes throughout both audie ngs with bilateral pleural effusions. Continue follow-up. POS: [facility]
[2019-09-12] MEDS: cefTRIAXone\\ROCEPHIN 2 GM in Sodium Chloride 0.9% 100 ML IVPB SCH ×2 (08:57→20:23)
[2019-09-12] MEDS: Pantoprazole 40 MG VIAL IVP SCH (08:58)
[2019-09-12 09:09] LABS: Vancomycin, Random 14.5 ug/mL (See Comment)
[2019-09-12] MEDS ORDERED: Heparin 10,000 UNITS/ 10 ML VIAL ONE (09:37)
[2019-09-12] MEDS: Vancomycin HCl 750 MG in Sodium Chloride 0.9% 250 ML 250 ML IVPB SCH (13:10)
--- NOTE | 2019-09-12 14:02 | PRG ---
DATE OF SERVICE: 09/12/2019 SUBJECTIVE: Lorena Barlow remains hemodynamically stable. OBJECTIVE: VITAL SIGNS: She is afebrile, heart rate 117, blood pressure 140/96. LUNGS: Clear anteriorly. HEART: Regular rhythm. ABDOMEN: Soft. EXTREMITIES: Without asymmetry or significant edema. LABORATORY DATA: White count 24.2, hemoglobin 7.1, platelets 46,000. She still has 6% metamyelocytes on her peripheral smear, but I still would like to believe that this is an acute phase reaction given her clinical sepsis. A pH 7.49, CO2 of 37, pO2 of 128. Sodium 134, potassium 4.3, chloride 97, bicarb 25, BUN 30, creatinine 3.74. Intake and output, positive 1375. She has had 67 mL out of urine. IMPRESSION: Streptococcus pneumoniae sepsis with community-acquired pneumonia and underlying lupus. She only recently was given a diagnosis of lupus, and her family who was in the room today does not know who was taking care of the lupus. In any event, she is clinically improving. I have explained that she will likely have to be dialyzed for several weeks at a minimum. We will continue to gradually decrease her ventilatory support. Precedex will be added with a goal of trying to decrease her propofol. CRITICAL CARE TIME: 30 minutes. Job ID: [id number]
--- NOTE | 2019-09-12 14:54 | PRG ---
DATE OF SERVICE: 09/12/2019 SUBJECTIVE: The patient is seen and examined today, undergoing hemodialysis. Noted with the following vital signs. OBJECTIVE: VITAL SIGNS: Heart rate of 108, blood pressure 144/112, and O2 up to 94%. HEENT: Remarkable for endotracheal tube in place. CARDIOVASCULAR SYSTEM: First and second heart sounds were heard. RESPIRATORY SYSTEM: Revealed vented sounds. DIGESTIVE SYSTEM: Revealed a benign abdomen. EXTREMITIES: No peripheral edema. SKIN: No new gross rash. LYMPHATICS: No peripheral lymphadenopathy. HEME: The patient still remains anemic. LABORATORY DATA: Laboratory investigation revealed white count of 24,000, hemoglobin of 7.1, and platelet down to 33,000. Chemistry showed sodium of 134, creatinine of 3.74, and BUN of 30. Immunologic studies came back and showed complement C3 of 29 and complement C4 of 6.5. IMPRESSION: 1. Acute kidney injury. 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 2. 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 3. Anemia partly iatrogenic in terms of blood draws and critical illness. 4. Worsening thrombocytopenia, query course. PLAN: 1. The patient to undergo dialysis today with ultrafiltration of about 3 L as tolerated by hemodynamics. 2. Continues to dialyze this patient with no heparin. 3. The patient already on erythropoiesis stimulating agent. However, if the hemoglobin drops below 7, I will defer to the primary team in terms of either requiring blood transfusion. If there is any need for blood transition might be better to coordinate with dialysis to be given during dialysis. 4. Further management to be dependent on the clinical course. Job ID: [id number] MTDD
--- NOTE | 2019-09-12 17:36 | PDOC.HOSPP ---
- Subjective Encounter Date: 09/12/19 Encounter Time: 10:45 Subjective: The patient seen and examined at the bedside. Patient is intubated. Per mother , patient got diagnosed with lupus one month ago when she was complaining of nonspecific aches and pains and dizziness. Patient started her menses today per nursing staff. Yesterday weaning off ventilator caused significant tachycardia per nursing - Objective Vital Signs & Weight: Vital Signs (12 hours) Temp Pulse Resp BP Pulse Ox 09/12/19 16:00 97.9 F 23 H 09/12/19 14:47 108 H 135/101 H 09/12/19 14:44 104 H 23 H 95 09/12/19 14:00 24 H 09/12/19 12:00 99.4 F 24 H 09/12/19 10:55 115 H 150/101 H 98 09/12/19 10:54 115 H 22 H 97 09/12/19 10:00 24 H 09/12/19 08:00 97.7 F 100 09/12/19 07:58 24 H 09/12/19 07:09 113 H 107/71 09/12/19 07:06 113 H 23 H 98 09/12/19 06:00 24 H Weight Admit Weight 213 lb Weight 222 lb 3.615 oz Most Recent Monitor Data Heart Rate from ECG 107 NIBP 119/84 NIBP BP-Mean 95 Respiration from ECG 25 SpO2 99 I&O: 09/11/19 09/12/19 09/13/19 06:59 06:59 06:59 Intake Total 1739 1867 Output Total 868 492 0 Balance 871 1375 0 Result Diagrams: 09/12/19 04:29 09/12/19 03:30 Additional Labs: Accuchecks 09/12/19 09/12/19 09/12/19 16:35 12:21 08:16 POC Glucose 130 H 131 H 143 H 09/12/19 09/12/19 09/11/19 04:10 00:00 20:58 POC Glucose 130 H 125 H 117 H 09/11/19 09/11/19 09/11/19 17:12 16:21 16:09 POC Glucose 147 H 64 L 42 L* Hospitalist ROS - Review of Systems Constitutional: denies: fever, chills - Medication Medications: Active Medications Generic Name Dose Route Start Last Admin Trade Name Freq PRN Reason Stop Dose Admin Acetaminophen 650 mg 09/08/19 00:20 09/10/19 05:46 Tylenol PO 650 mg Q4H PRN Administration Headache/Fever/Mild Pain (1-3) Albuterol/Ipratropium 3 ml 09/11/19 22:30 09/12/19 14:44 Duoneb NEB 3 ml [id number] GIA Administration Dextrose/Water 25 gm 09/10/19 07:06 09/11/19 16:44 Dextrose 50% SLOW IVP 25 gm PRN PRN Administration Hypoglycemia Ceftriaxone Sodium 2 gm/ 100 mls @ 200 mls/hr 09/08/19 21:00 09/12/19 08:57 Sodium Chloride IVPB 100 mls BID GIA Administration Dextrose/Sodium Chloride 1,000 mls @ 50 mls/hr 09/10/19 08:45 09/11/19 23:08 D5 0.9% Ns IV 1,000 mls .Q20H GIA Administration Dexmedetomidine HCl 200 mcg/ 50 mls @ 0 mls/hr 09/12/19 11:30 09/12/19 11:44 Sodium Chloride IVPB 50 mls INF GIA Administration Protocol Per Protocol Lorazepam 2 mg 09/08/19 05:32 09/12/19 01:32 Ativan SLOW IVP 10/08/19 05:32 2 mg Q1H PRN Administration Breakthrough agitation Methylprednisolone Sodium Succinate 20 mg 09/11/19 23:59 09/12/19 17:25 Solu-Medrol IVP 20 mg Q6HR GIA Administration Morphine Sulfate 2 mg 09/08/19 05:32 09/11/19 15:10 Morphine SLOW IVP 10/08/19 05:32 2 mg Q1H PRN Administration BREAKTHROUGH PAIN/Agitation Pantoprazole Sodium 40 mg 09/11/19 09:00 09/12/19 08:58 Protonix IVP 40 mg DAILY GIA Administration Propofol 1,000 mg 09/08/19 05:32 09/12/19 17:25 Diprivan IV 10/08/19 05:32 1,000 mg INF PRN Administration TO ACHIEVE GOAL RASS Protocol Sodium Chloride 10 ml 09/08/19 09:00 09/12/19 09:02 Flush - Normal Saline IVF 10 ml Q12HR GIA Administration Sterile Water 1 ml 09/08/19 01:03 09/12/19 05:13 Bacteriostatic Water FS 1 ml PRN PRN Administration RECONSTITUTION - Exam General - other findings: intubated, sedated Eye: PERRL, anicteric sclera ENT: normocephalic atraumatic, no oropharyngeal lesions Neck: supple, no JVD Heart: RRR, no murmur, no gallops, no rubs Respiratory: CTAB, no wheezes, no rales Gastrointestinal: soft Gastrointestinal - other findings: slightly distended Extremities: no cyanosis, no clubbing, no edema Skin: normal turgor, no lesions, no rashes Hosp A/P - Plan This is a 33 year old female who presented with rapidly progressive shortness of breath requiring intubation #Acute hypoxic respiratory failure secondary to sepsis from strep bacteremia and staph pneumonia #Acute kidney Injury likely from Lupus Nephritis - blood cultures on admission showed 2/2 strep. Sputum culture growing staph aureus MSSA. She is on IV ceftriaxone. - WBC has been increasing to 24. Could be secondary to IV steroids. Will monitor for fevers - chest X ray today showing some pulmonary edema. She is getting daily dialysis. Creatinine is improving to 3 - hydrocortisone weaned to q12 hours Anemia - Hb 7, currently on EPO injections - continue to trend hemoglobin Hyponatremia - sodium 134, mild stable
[2019-09-12] MEDS: Dextrose 5 % And 0.9 % NaCl 1,000 ML IV SCH (20:51)
[2019-09-12] MEDS ORDERED: Hydrocortisone Sod Succ/PF 100 mg/2 ml Vial IVP SCH (21:00)
[2019-09-13] MEDS: Propofol 1,000 MG/100 ML VIAL IV PRN ×2 (01:21→17:30)
[2019-09-13 05:00] LABS: Hemoglobin 6.5 g/dL (12.0-16.0); Mean Corpuscular HGB CONC 33.3 g/dL (32.0-36.0); Mean Corpuscular Hemoglobin 29.1 pg (27.0-31.0); Mean Corpuscular Volume 87.3 fL (78.0-98.0); Mean Platelet Volume 11.7 fL (7.4-10.4); Platelet Count 42 thou/uL (130-400); RBC Distribution Width 16.1 % (11.5-14.5); Red Blood Cell (RBC) Count 2.25 mill/uL (4.20-5.40); White Blood Cell (WBC) Count 32.9 thou/uL (4.8-10.8)
[2019-09-13 05:18] LABS: ALT (SGPT) 34 U/L (8-55); AST (SGOT) 38 U/L (5-34); Albumin 2.3 g/dL (3.5-5.0); Alkaline Phosphatase 125 U/L (40-110); Anion Gap 19 mmol/L (10-20); BUN (Urea Nitrogen) 45 mg/dL (7.0-18.7); Bilirubin, Total 0.5 mg/dL (0.2-1.2); Calc. Creatinine Clearance 32 mL/min (70-130); Calcium 7.4 mg/dL (7.8-10.44); Carbon Dioxide 24 mmol/L (22-29); Chloride 97 mmol/L (98-107); Estimated GFR-MDRD 16; Globulin 6.2 g/dL (2.4-3.5); Glucose 120 mg/dL (70-105); Potassium 4.5 mmol/L (3.5-5.1); Protein, Total 8.5 g/dL (6.0-8.3); Sodium 135 mmol/L (136-145)
--- NOTE | 2019-09-13 08:24 | RAD ---
PORTABLE CHEST ONE VIEW: HISTORY: Respiratory insufficiency. COMPARISON: 09/12/2019 FINDINGS: Stable extensive bilateral alveolar opacity changes, somewhat more confluent on the right side. Life support tubes are stable. No evidence for significant new process. POS: [facility]
[2019-09-13] MEDS: cefTRIAXone\\ROCEPHIN 2 GM in Sodium Chloride 0.9% 100 ML IVPB SCH ×2 (09:24→20:34)
[2019-09-13] MEDS: Pantoprazole 40 MG VIAL IVP SCH (09:24)
[2019-09-13] MEDS: methylPREDNISolone Sod Succ 40 MG VIAL IVP SCH ×2 (09:28→20:34)
[2019-09-13] MEDS: Morphine 2 MG/ML SYRINGE SLOW IVP PRN (10:49)
--- NOTE | 2019-09-13 12:18 | PDOC.HOSPP ---
- Subjective Encounter Date: 09/13/19 Encounter Time: 11:00 Subjective: The patient is intubated. SHe was taken off diprivan but was in too much pain so put back to sleep. She is having abundant secretions per nursing staff Per nursing, she did receive a dose of 750 mg IV vancomycin yesterday - Objective Vital Signs & Weight: Vital Signs (12 hours) Temp Pulse Resp BP Pulse Ox 09/13/19 10:29 104 H 129/93 H 09/13/19 10:00 28 H 09/13/19 08:00 100 09/13/19 07:33 23 H 09/13/19 07:22 104 H 135/90 09/13/19 07:00 98.6 F 09/13/19 06:00 22 H 09/13/19 04:00 98.5 F 25 H 09/13/19 02:57 107 H 106/74 09/13/19 02:56 104 H 15 97 09/13/19 02:00 26 H Weight Admit Weight 213 lb Weight 208 lb 15.971 oz Most Recent Monitor Data Heart Rate from ECG 111 NIBP 140/103 NIBP BP-Mean 115 Respiration from ECG 17 SpO2 100 I&O: 09/12/19 09/13/19 09/14/19 06:59 06:59 06:59 Intake Total 1867 2213.2 70 Output Total 492 7 0 Balance 1375 2206.2 70 Result Diagrams: 09/13/19 04:00 09/13/19 04:00 Additional Labs: Accuchecks 09/13/19 09/13/19 09/13/19 07:32 04:16 00:17 POC Glucose 126 H 141 H 140 H 09/12/19 09/12/19 09/12/19 20:27 16:35 12:21 POC Glucose 135 H 130 H 131 H Hospitalist ROS - Review of Systems ROS unobtainable: due to mental status - Medication Medications: Active Medications Generic Name Dose Route Start Last Admin Trade Name Freq PRN Reason Stop Dose Admin Acetaminophen 650 mg 09/08/19 00:20 09/10/19 05:46 Tylenol PO 650 mg Q4H PRN Administration Headache/Fever/Mild Pain (1-3) Albuterol/Ipratropium 3 ml 09/11/19 22:30 09/13/19 10:29 Duoneb NEB 3 ml [id number] GIA Administration Dextrose/Water 25 gm 09/10/19 07:06 09/11/19 16:44 Dextrose 50% SLOW IVP 25 gm PRN PRN Administration Hypoglycemia Ceftriaxone Sodium 2 gm/ 100 mls @ 200 mls/hr 09/08/19 21:00 09/13/19 09:24 Sodium Chloride IVPB 100 mls BID GIA Administration Dextrose/Sodium Chloride 1,000 mls @ 50 mls/hr 09/10/19 08:45 09/12/19 20:51 D5 0.9% Ns IV 1,000 mls .Q20H GIA Administration Dexmedetomidine HCl 200 mcg/ 50 mls @ 0 mls/hr 09/12/19 11:30 09/13/19 08:19 Sodium Chloride IVPB 50 mls INF GIA Administration Protocol Per Protocol Lorazepam 2 mg 09/08/19 05:32 09/12/19 01:32 Ativan SLOW IVP 10/08/19 05:32 2 mg Q1H PRN Administration Breakthrough agitation Methylprednisolone Sodium Succinate 20 mg 09/12/19 21:00 09/13/19 09:28 Solu-Medrol IVP 20 mg BID GIA Administration Morphine Sulfate 2 mg 09/08/19 05:32 09/13/19 10:49 Morphine SLOW IVP 10/08/19 05:32 2 mg Q1H PRN Administration BREAKTHROUGH PAIN/Agitation Pantoprazole Sodium 40 mg 09/11/19 09:00 09/13/19 09:24 Protonix IVP 40 mg DAILY GIA Administration Propofol 1,000 mg 09/08/19 05:32 09/13/19 01:21 Diprivan IV 10/08/19 05:32 1,000 mg INF PRN Administration TO ACHIEVE GOAL RASS Protocol Sodium Chloride 10 ml 09/08/19 09:00 09/13/19 09:25 Flush - Normal Saline IVF 10 ml Q12HR GIA Administration Sterile Water 1 ml 09/08/19 01:03 09/12/19 20:24 Bacteriostatic Water FS 1 ml PRN PRN Administration RECONSTITUTION - Exam General - other findings: intubatd, sedated ENT: normocephalic atraumatic, no oropharyngeal lesions Neck: no JVD Heart: RRR, no murmur, no gallops Respiratory: CTAB, no wheezes, no rales, no ronchi Gastrointestinal: soft, non-tender, non-distended, normal bowel sounds Extremities: no edema Skin: normal turgor, no lesions, no rashes Hosp A/P - Plan This is a 33 year old female who presented with rapidly progressive shortness of breath requiring intubation #Acute hypoxic respiratory failure secondary to sepsis from strep bacteremia and staph pneumonia - blood cultures on admission showed 2/2 strep. Sputum culture growing staph aureus MSSA. She is on IV ceftriaxone and vancomycin. Will re-send another sputum culture - WBC has been increasing to 32. Hydrocortisone discontinued today - chest X ray today shows stable bilateral opacities #Acute kidney Injury likely from Lupus Nephritis - had low C3 and C4 on admission, diagnosed with lupus last month - She is getting next dialysis tomorrow. Anemia - Hb 6.5, transfuse one unit of blood today Hyponatremia - sodium 134, mild stable
--- NOTE | 2019-09-13 13:11 | PRG ---
DATE OF SERVICE: 09/13/2019 SUBJECTIVE: Ms. Barlow opens her eyes to voice. Her sedation is gradually being adjusted downward. OBJECTIVE: VITAL SIGNS: Respiratory rates in the 20s, FiO2 is down to 30%, blood pressure 147/111, heart rate is 113. LUNGS: Remarkable for coarse equal breath sounds. HEART: Regular rhythm. ABDOMEN: Soft. EXTREMITIES: Without clubbing, cyanosis, or edema. Intake and output, positive 2206. LABORATORY DATA: White count 32.9, hemoglobin 6.5, platelets 42,000. A unit of packed cells was ordered today. It is unclear whether or not she will have dialysis today. Urine output was only 7 mL. IMPRESSION: 1. Respiratory failure after pneumococcal sepsis. 2. Recent diagnosis of lupus. 3. Status post brief cardiac arrest after intubation. 4. COVID ruled out. 5. Anemia of chronic disease combined with anemia secondary to blood drawing. They did not do a manual differential today. She had 24% bands on yesterday's CBC with an abundant number of metamyelocytes. Hopefully, these will be decreasing soon. If she continues with ongoing immature cells circulating, we may need to have Hematology look at the blood smear. Her boyfriend is at the bedside, he was informed that she is slowly improving each day. Critical care time 35 min. Job ID: [id number] MTDD
[2019-09-13] MEDS: Dextrose 5 % And 0.9 % NaCl 1,000 ML IV SCH (17:23)
--- NOTE | 2019-09-13 17:49 | PRG ---
DATE OF SERVICE: 09/13/2019 SUBJECTIVE: She is intubated, still requiring sedation to avoid agitation. She has a tunneled catheter in the right IJ position and a triple-lumen in the left side. The groin catheters have been removed. OBJECTIVE: VITAL SIGNS: She had a temperature of 100.1 yesterday, but she has been afebrile today. Heart rate 110. She is on 30% FiO2, maintaining 100% O2 saturations, PEEP of 5. GENERAL: She grimaces when I try to open her eyes. HEENT: Sclerae are white. LUNGS: With coarse breath sounds. HEART: S1 and S2, regular rate. ABDOMEN: Not distended. EXTREMITIES: Seems to be able to move all extremities. LABORATORY DATA: White cell count is up to 32.9, hemoglobin 6.5, platelets 42,000. The complement was low and the ADRIANNA is still pending. Creatinine 3.86. ASSESSMENT AND DISCUSSION: Stomach lupus erythematosus, hypocomplementemia, Streptococcus pneumoniae bacteremia, sepsis, the possibility of TE[employer]CH[employer]IAN infection not ruled out yet, acute renal failure on hemodialysis with tunneled catheter, currently on ceftriaxone, and the patient is on methylprednisolone at this time, she is on vancomycin still, but that can be discontinued in view of the susceptibilities of the organism. Job ID: [id number]
[2019-09-13] MEDS: Bacteriostatic Water 30 ML VIAL FS PRN (20:34)
--- NOTE | 2019-09-13 23:26 | PRG ---
DATE OF SERVICE: SUBJECTIVE: The patient is seen and examined, still on ventilator. Noted with the following vital sings. OBJECTIVE: VITAL SIGNS: Blood pressure 128/95, pulse of 106, afebrile, temperature 98.9, respiratory rate of 21. HEENT: Remarkable for endotracheal tube in place. CARDIOVASCULAR SYSTEM: First and second heart sounds were heard. RESPIRATORY SYSTEM: Clear to auscultation. DIGESTIVE SYSTEM: Revealed a benign abdomen. EXTREMITIES: No peripheral edema. SKIN EXAMINATION: No new gross rash. LYMPHATICS: No peripheral lymphadenopathy. LABORATORY DATA: Laboratory investigation revealed a hemoglobin of 6.5, white count of 32,000. Chemistry showed a sodium of 135, BUN of 45 with a creatinine of 3.86, calcium 7.4. IMPRESSION: 1. Post strep/Staph immune complex-induced glomerulonephritis. 2. Acute kidney injury related to problem #1. 3. Anemia due to critical illness and iatrogenic in the context of daily blood draws. 4. Respiratory failure, on ventilator. 5. Thrombocytopenia. 6. Worsening leukocytosis, partly related to the use of steroids. PLAN: 1. The patient not to be dialyzed today. I do agree with transfusion of 1 unit of blood today. 2. The patient to undergo hemodialysis tomorrow if need be. Depending on the hemoglobin level tomorrow, the patient can be transfused during dialysis. Meanwhile, the patient to continue with erythropoiesis stimulating agent. 3. We will discontinue the D5 water. This patient's sodium is already at 135. Therefore, we will avoid precipitating hyponatremia. 4. Renally dose all medications and avoid potentially nephrotoxic agents. 5. Further management will be dependent on the clinical course. Job ID: [id number]
[2019-09-14 05:15] LABS: Anion Gap 21 mmol/L (10-20); BUN (Urea Nitrogen) 90 mg/dL (7.0-18.7); Calc. Creatinine Clearance 23 mL/min (70-130); Calcium 7.3 mg/dL (7.8-10.44); Carbon Dioxide 21 mmol/L (22-29); Chloride 97 mmol/L (98-107); Estimated GFR-MDRD 12; Glucose 110 mg/dL (70-105); Potassium 5.3 mmol/L (3.5-5.1); Sodium 134 mmol/L (136-145)
[2019-09-14 06:09] LABS: Hemoglobin 6.7 g/dL (12.0-16.0); Mean Corpuscular HGB CONC 32.1 g/dL (32.0-36.0); Mean Corpuscular Hemoglobin 28.1 pg (27.0-31.0); Mean Corpuscular Volume 87.3 fL (78.0-98.0); RBC Distribution Width 15.8 % (11.5-14.5); White Blood Cell (WBC) Count 38.3 thou/uL (4.8-10.8)
[2019-09-14 07:17] LABS: Mean Platelet Volume 12.8 fL (7.4-10.4); Platelet Count 52 thou/uL (130-400)
[2019-09-14] MEDS: Pantoprazole 40 MG VIAL IVP SCH (07:54)
[2019-09-14] MEDS: methylPREDNISolone Sod Succ 40 MG VIAL IVP SCH ×2 (07:54→20:32)
[2019-09-14] MEDS: cefTRIAXone\\ROCEPHIN 2 GM in Sodium Chloride 0.9% 100 ML IVPB SCH (07:57)
[2019-09-14] MEDS ORDERED: Vancomycin HCl 750 MG in Sodium Chloride 0.9% 250 ML 250 ML IVPB SCH ×2 (09:00→10:15)
[2019-09-14] MEDS ORDERED: Furosemide 40 MG/4 ML VIAL SLOW IVP SCH (09:15)
[2019-09-14] MEDS ORDERED: Vancomycin HCl 1.25 GM in Sodium Chloride 0.9% 250 ML 250 ML IVPB SCH ×2 (09:30→10:15)
--- NOTE | 2019-09-14 09:54 | PRG ---
DATE OF SERVICE: 09/14/2019 35 minutes critical care time. SUBJECTIVE: The patient remains intubated, on mechanical ventilation. Right now she is undergoing hemodialysis. OBJECTIVE: VITAL SIGNS: Temperature 99.2 with a T-max of 99.8, pulse 101, blood pressure 155/118. Intake 2474, output 3000 by dialysis yesterday. HEENT: Unremarkable except ET tube. NECK: No adenopathy or JVD. LUNGS: Diminished, but clear breath sounds. CARDIAC: S1, S2 regular. ABDOMEN: Soft and nontender. EXTREMITIES: Edematous. She has a right IJ tunnel dialysis catheter. She has a left IJ triple-lumen catheter in place. LABORATORY DATA: White blood cell count is 38.3, hematocrit 20.9, and platelet count 52. Of note, she is receiving 2 units of PRBCs. Sodium 134, potassium 5.3, chloride 97, CO2 of 21, BUN 90, creatinine 5.2, glucose 110. X-ray shows diffuse bilateral infiltrates. ASSESSMENT: 1. Respiratory failure requiring mechanical ventilation. 2. Pneumococcal and staphylococcal sepsis. 3. Lupus. 4. Acute renal failure. PLAN: 1. At this time she is not weanable. She will receive blood for her anemia. 2. Continue IV antibiotics under the direction Dr. Mckenna. 3. We will continue to follow. Job ID: [id number]
[2019-09-14] MEDS ORDERED: Vancomycin 1 GM in Premix Bag 1 BAG IVPB SCH (10:15)
[2019-09-14] MEDS ORDERED: HOLD VANCOMYCIN FOR LEVEL >20 FS SCH (10:15)
--- NOTE | 2019-09-14 10:29 | RAD ---
[facility]: HISTORY: Respiratory insufficiency. COMPARISON: 09/13/2019. FINDINGS/IMPRESSION: Life support tubes remain in place and stable. Right venous access catheter. Extensive bilateral al veolar opacity changes and pleural effusions. No significant new process. Continue short-term follo wup. POS: [facility]
[2019-09-14] MEDS: Propofol 1,000 MG/100 ML VIAL IV PRN ×2 (10:30→21:12)
[2019-09-14] MEDS ORDERED: Heparin 10,000 UNITS/ 10 ML VIAL ONE (10:53)
[2019-09-14] MEDS ORDERED: Fluconazole In NaCl,Iso-Osm 100 MG in Premix Bag 1 BAG IVPB SCH (11:00)
--- NOTE | 2019-09-14 11:20 | PDOC.HOSPP ---
- Subjective Encounter Date: 09/14/19 Encounter Time: 09:30 Subjective: The patient is intubated. She does follow commands off of sedation per nursing but was in a lot of pain. She has minimal urine output. Getting dialysis this am - Objective Vital Signs & Weight: Vital Signs (12 hours) Temp Pulse Resp BP Pulse Ox 09/14/19 10:36 100 09/14/19 10:16 99.2 F 09/14/19 09:52 99.3 F 09/14/19 09:37 99.2 F 09/14/19 09:30 99.2 F 09/14/19 09:07 99.3 F 09/14/19 08:52 99.5 F 09/14/19 08:00 98.9 F 98 09/14/19 07:14 105 H 138/106 H 09/14/19 06:00 27 H 09/14/19 04:00 99.8 F H 33 H 09/14/19 02:09 107 H 125/88 09/14/19 02:00 27 H 09/14/19 00:00 99.4 F 33 H Weight Admit Weight 213 lb Weight 211 lb 3.245 oz Most Recent Monitor Data Heart Rate from ECG 96 NIBP 176/132 NIBP BP-Mean 134 Respiration from ECG 23 SpO2 100 I&O: 09/13/19 09/14/19 09/15/19 06:59 06:59 06:59 Intake Total 2213.2 2474.5 700 Output Total 7 0 Balance 2206.2 2474.5 700 Result Diagrams: 09/14/19 04:00 09/14/19 04:00 Additional Labs: Accuchecks 09/14/19 09/14/19 09/13/19 04:02 00:44 20:30 POC Glucose 123 H 123 H 131 H 09/13/19 09/13/19 16:33 12:32 POC Glucose 110 125 H Hospitalist ROS - Review of Systems Constitutional: denies: fever, chills - Medication Medications: Active Medications Generic Name Dose Route Start Last Admin Trade Name Freq PRN Reason Stop Dose Admin Acetaminophen 650 mg 09/08/19 00:20 09/10/19 05:46 Tylenol PO 650 mg Q4H PRN Administration Headache/Fever/Mild Pain (1-3) Albuterol/Ipratropium 3 ml 09/11/19 22:30 09/14/19 10:34 Duoneb NEB 3 ml [id number] GIA Administration Dexmedetomidine HCl 200 mcg/ 50 mls @ 0 mls/hr 09/12/19 11:30 09/14/19 10:27 Sodium Chloride IVPB 50 mls INF GIA Administration Protocol Per Protocol Lorazepam 2 mg 09/08/19 05:32 09/12/19 01:32 Ativan SLOW IVP 10/08/19 05:32 2 mg Q1H PRN Administration Breakthrough agitation Methylprednisolone Sodium Succinate 20 mg 09/12/19 21:00 09/14/19 07:54 Solu-Medrol IVP 20 mg BID GIA Administration Morphine Sulfate 2 mg 09/08/19 05:32 09/13/19 10:49 Morphine SLOW IVP 10/08/19 05:32 2 mg Q1H PRN Administration BREAKTHROUGH PAIN/Agitation Pantoprazole Sodium 40 mg 09/11/19 09:00 09/14/19 07:54 Protonix IVP 40 mg DAILY GIA Administration Propofol 1,000 mg 09/08/19 05:32 09/14/19 10:30 Diprivan IV 10/08/19 05:32 1,000 mg INF PRN Administration TO ACHIEVE GOAL RASS Protocol Sodium Chloride 10 ml 09/08/19 09:00 09/13/19 20:35 Flush - Normal Saline IVF 10 ml Q12HR GIA Administration Sterile Water 1 ml 09/08/19 01:03 09/13/19 20:34 Bacteriostatic Water FS 1 ml PRN PRN Administration RECONSTITUTION - Exam General - other findings: intubated, sedated Eye: PERRL ENT: normocephalic atraumatic Neck: supple, no JVD Heart: RRR, no murmur, no gallops, no rubs Respiratory - other findings: diffuse rales Gastrointestinal: soft, non-tender, non-distended Extremities: no cyanosis, no clubbing, no edema Skin: normal turgor, no lesions, no rashes Neurological: cranial nerve grossly intact, normal sensation to touch, no focal deficits, no new deficit Musculoskeletal: normal tone, normal strength, no muscle wasting Psychiatric: normal affect, normal behavior, A&O x 3 Hosp A/P - Plan This is a 33 year old female who presented with rapidly progressive shortness of breath requiring intubation #Acute hypoxic respiratory failure secondary to sepsis from strep bacteremia and staph pneumonia - blood cultures on admission showed 2/2 strep. Sputum culture growing staph aureus MSSA. - she was on IV ceftriaxone, received vanc on the . - WBC has been increasing to 38. Hydrocortisone discontinued. Antibiotics switched to vancomycin and meropenem - chest X ray today shows bilateral effusions and opacities #Acute kidney Injury likely from Lupus Nephritis - had low C3 and C4 on admission, diagnosed with lupus last month - She is getting dialysis today Anemia - Hb 6.5, transfuse another 2 unit prbc otday Hyponatremia - sodium 134, mild stable
[2019-09-14] MEDS: Meropenem 500 MG in Sodium Chloride 0.9% 100 ML IVPB SCH (13:03)
--- NOTE | 2019-09-14 20:05 | PRG ---
DATE OF SERVICE: 09/14/2019 SUBJECTIVE: The patient is seen and examined, still on life support. Noted with the following vital signs. OBJECTIVE: VITAL SIGNS: Blood pressure 150/103, pulse of 97, respiratory rate of 21. HEENT: Remarkable for endotracheal tube in place. CARDIOVASCULAR: First and second heart sounds were heard. RESPIRATORY:revealed vented sounds. DIGESTIVE SYSTEM: Revealed a benign abdomen. EXTREMITIES: No peripheral edema. SKIN: No new gross rash. LYMPHATICS: No peripheral lymphadenopathy. LABORATORY DATA: Significant for creatinine of 5.26 with BUN of 90, potassium 5.3, bicarb of 21, and sodium 134. CBC showed hemoglobin of 6.7 with a white count of 38,300. IMPRESSION: 1. Anuric acute kidney injury, likely in the context of #2. 2. Post strep/staph immune complex glomerulonephritis. However, I cannot completely rule out other potential glomerulonephritis disease including lupus induced crescentic glomerulonephritis. 3. Anemia, resistant. 4. Hyperkalemia. 5. Cardiopulmonary failure, on vein. PLAN: 1. The patient now to be on daily dialysis with ultrafiltration as tolerated by hemodynamics given the chest x-ray of this patient that shows significant congestion. 2. We will discuss with Radiology to see if it is possible to get a kidney biopsy in order to rule out other potential treatable glomerulonephritis including but not limited to crescentic glomerulonephritis. 3. Continue current renal supportive measures. 4. No treatment for post strep/post staph glomerulonephritis except antibiotics and renal supportive measures. 5. Further management to be dependent on the clinical course. Job ID: [id number]
[2019-09-15] MEDS: Propofol 1,000 MG/100 ML VIAL IV PRN ×3 (02:10→21:51)
[2019-09-15 07:00] LABS: Actual Bicarbonate (HCO3a) 21.1 mEq/L (22-28); Base Excess (BEa) -2.2 mEq/L (-2.0 to +3.0); CO2 Tension 31.1 mmHg (35.0-45.0); Carboxyhemoglobin (COHb) 0.8 gm% (0.0-3.0); Hemoglobin (Hb) 9.9 g/dL (12.0-16.0); O2 Tension (PaO2), arterial 68.6 mmHg (80.0-100.0); Potassium - ABG Lab 5.24 mmol/L (3.70-5.30); pH, Arterial 7.45 (7.35-7.45)
[2019-09-15 07:04] LABS: ALV-art Gradient 106.425 (0-20); Puncture Site L.R.
[2019-09-15 07:17] LABS: Anion Gap 20 mmol/L (10-20); BUN (Urea Nitrogen) 73 mg/dL (7.0-18.7); Calc. Creatinine Clearance 27 mL/min (70-130); Calcium 7.5 mg/dL (7.8-10.44); Carbon Dioxide 23 mmol/L (22-29); Chloride 95 mmol/L (98-107); Estimated GFR-MDRD 14; Glucose 117 mg/dL (70-105); Potassium 5.2 mmol/L (3.5-5.1); Sodium 133 mmol/L (136-145)
[2019-09-15 07:19] LABS: Hemoglobin 9.6 g/dL (12.0-16.0); Mean Corpuscular HGB CONC 33.9 g/dL (32.0-36.0); Mean Corpuscular Hemoglobin 29.9 pg (27.0-31.0); Mean Corpuscular Volume 88.1 fL (78.0-98.0); Mean Platelet Volume 10.2 fL (7.4-10.4); Platelet Count 80 thou/uL (130-400); RBC Distribution Width 15.7 % (11.5-14.5); White Blood Cell (WBC) Count 39.5 thou/uL (4.8-10.8)
[2019-09-15 07:29] LABS: Band 22 % (5-11); Lymphocytes 3 % (21-51); MDiff Complete? YES; Metamyelocyte 6 % (0-0); Monocytes 3 % (0-10); Myelocyte 3 % (0-0); Neutrophil 63 % (42-75); Nucleated RBC 1 % (0); Platelet Morphology Comment Appears Decreased; Polychromasia SLIGHT = 2-3 cells (100X) (0-2/hpf); Target Cells SLIGHT = 2-5 cells (100X) (0-1/hpf)
--- NOTE | 2019-09-15 08:01 | RAD ---
Chest one view HISTORY: Dyspnea. Intubated. COMPARISON: 09/14/2019. FINDINGS: Cardiac silhouette is magnified and upper limits of normal in size. Pulmonary vasculature r emains engorged patchy areas of parenchymal infiltrate throughout each lung and hazy opacity within the dependent portion of each hemithorax similar in appearance to the previous exam. Mediastinum is midline. Lines and tubes appear unchanged in position. No evidence of pneumothorax. IMPRESSION : Bilateral pleural fluid, infiltrate, pulmonary vascular congestion, and other findings are stable.
[2019-09-15] MEDS: methylPREDNISolone Sod Succ 40 MG VIAL IVP SCH ×2 (08:14→21:09)
[2019-09-15] MEDS: Pantoprazole 40 MG VIAL IVP SCH (08:15)
[2019-09-15 09:39] LABS: Vancomycin, Random 32.6 ug/mL (See Comment)
[2019-09-15 10:01] LABS: INR-International Normal Ratio 1.1; PTT 24.1 sec (22.9-36.1); Prothrombin Time 13.8 sec (12.0-14.7)
[2019-09-15] MEDS: Meropenem 500 MG in Sodium Chloride 0.9% 100 ML IVPB SCH (10:33)
[2019-09-15] MEDS: Lorazepam 2 MG/ML VIAL SLOW IVP PRN (10:41)
[2019-09-15] MEDS: Fluconazole In NaCl,Iso-Osm 100 MG in Admixture Fee 1 EACH IVPB SCH (11:09)
[2019-09-15] MEDS: hydrALAZINE 20 MG/ML VIAL SLOW IVP PRN (12:16)
--- NOTE | 2019-09-15 14:59 | PDOC.HOSPP ---
- Subjective Encounter Date: 09/15/19 Encounter Time: 15:00 Subjective: The patient is intubated. Was weaned off sedation and was very agitated so placed back on. Getting dialysis today - Objective Vital Signs & Weight: Vital Signs (12 hours) Temp Pulse Resp BP Pulse Ox 09/15/19 12:16 102 H 157/115 H 09/15/19 11:02 102 H 157/115 H 09/15/19 11:01 101 H 20 100 09/15/19 08:00 12 100 09/15/19 07:00 99.1 F 09/15/19 06:45 96 145/121 H 09/15/19 06:42 96 23 H 95 09/15/19 06:00 22 H 09/15/19 04:00 98.9 F 22 H Weight Admit Weight 213 lb Weight 210 lb 5.136 oz Most Recent Monitor Data Heart Rate from ECG 103 NIBP 142/100 NIBP BP-Mean 114 Respiration from ECG 25 SpO2 100 I&O: 09/14/19 09/15/19 09/16/19 06:59 06:59 06:59 Intake Total 2474.5 2748 900 Output Total 0 25 0 Balance 2474.5 2723 900 Result Diagrams: 09/15/19 04:10 09/15/19 04:10 Additional Labs: Accuchecks 09/15/19 09/15/19 09/15/19 11:56 08:28 04:20 POC Glucose 123 H 122 H 129 H 09/15/19 09/14/19 09/14/19 00:14 21:44 16:35 POC Glucose 120 H 114 H 117 H Hospitalist ROS - Review of Systems Constitutional: denies: fever, chills - Medication Medications: Active Medications Generic Name Dose Route Start Last Admin Trade Name Freq PRN Reason Stop Dose Admin Acetaminophen 650 mg 09/08/19 00:20 09/10/19 05:46 Tylenol PO 650 mg Q4H PRN Administration Headache/Fever/Mild Pain (1-3) Albuterol/Ipratropium 3 ml 09/11/19 22:30 09/15/19 11:01 Duoneb NEB 3 ml [id number] GIA Administration Hydralazine HCl 10 mg 09/15/19 12:00 09/15/19 12:16 Apresoline SLOW IVP 10 mg Q4H PRN Administration SBP Greater Than 170 Meropenem 500 mg/ Sodium 100 mls @ 200 mls/hr 09/14/19 12:00 09/15/19 10:33 Chloride IVPB 100 mls Q24HR GIA Administration Dexmedetomidine HCl 400 mcg/ 100 mls @ 0 mls/hr 09/14/19 17:45 09/15/19 02:10 Sodium Chloride IVPB 100 mls INF GIA Administration Protocol Per Protocol Fluconazole/Sodium Chloride 50 mls @ 100 mls/hr 09/15/19 11:00 09/15/19 11:09 100 mg/ Miscellaneous IVPB 50 mls Medication 1100 GIA Administration Lorazepam 2 mg 09/08/19 05:32 09/15/19 10:41 Ativan SLOW IVP 10/08/19 05:32 2 mg Q1H PRN Administration Breakthrough agitation Methylprednisolone Sodium Succinate 20 mg 09/12/19 21:00 09/15/19 08:14 Solu-Medrol IVP 20 mg BID GIA Administration Morphine Sulfate 2 mg 09/08/19 05:32 09/13/19 10:49 Morphine SLOW IVP 10/08/19 05:32 2 mg Q1H PRN Administration BREAKTHROUGH PAIN/Agitation Pantoprazole Sodium 40 mg 09/11/19 09:00 09/15/19 08:15 Protonix IVP 40 mg DAILY GIA Administration Propofol 1,000 mg 09/08/19 05:32 09/15/19 12:51 Diprivan IV 10/08/19 05:32 1,000 mg INF PRN Administration TO ACHIEVE GOAL RASS Protocol Sodium Chloride 10 ml 09/08/19 09:00 09/15/19 08:16 Flush - Normal Saline IVF 10 ml Q12HR GIA Administration Sterile Water 1 ml 09/08/19 01:03 09/13/19 20:34 Bacteriostatic Water FS 1 ml PRN PRN Administration RECONSTITUTION - Exam General - other findings: intubated, sedated Eye: PERRL, anicteric sclera ENT: normocephalic atraumatic, no oropharyngeal lesions Neck: supple, no JVD Heart: RRR, no murmur, no gallops, no rubs Respiratory: CTAB, no wheezes, no ronchi, rales Gastrointestinal: soft, non-tender, non-distended, normal bowel sounds Extremities: no cyanosis, no clubbing, no edema Skin: normal turgor, no lesions, no rashes Neurological: cranial nerve grossly intact, normal sensation to touch, no focal deficits, no new deficit Musculoskeletal: normal tone, normal strength, no muscle wasting Hosp A/P - Plan Chest Xray 09/14: pulm edema This is a 33 year old female who presented with rapidly progressive shortness of breath requiring intubation #Acute hypoxic respiratory failure secondary to sepsis from strep bacteremia and staph pneumonia - blood cultures on admission showed 2/2 strep. Sputum culture growing staph aureus MSSA. - she was on IV ceftriaxone, received vanc on the . - WBC up to 39.5. Continue vanc and meropenem - chest X ray today shows bilateral effusions and opacities . 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 Discussed kidney biopsy with nephrology and IR. Plan to do kidney biopsy tomorrow and try to coordinate with respiratory therapy and anasthesia - discussed with the patient's mother Thrombocytopenia - platelet count 80. Will recheck platelets tomorrow, transfuse if less than 100 in anticipation of renal biopsy Anemia - Hb up to 9.6, s/p 3 units pRBC Hyponatremia - sodium 134, mild stable Code status: full code
--- NOTE | 2019-09-15 17:06 | PRG ---
DATE OF SERVICE: 09/15/2019 SUBJECTIVE: The patient is being dialyzed at the moment. She has been dialyzed everyday and they try to remove fluid from her. She is sedated at the moment. OBJECTIVE: LUNGS: with symmetric air entry, fairly clear breath sounds. HEART: S1 and S2. ABDOMEN: Soft. Not distended. LABORATORY DATA: White cells are up to 39,000, hemoglobin 9.6, with 22% bands, 63% neutrophils, 6% metamyelocytes and 3% myelocytes. Pretty good leukoerythroblastic response. Chemistry; sodium 133, creatinine 4.52. The last liver panel is from . The bilirubin was normal. AST was 38, which was better. ALT was 34. Alkaline phosphatase was 125, which was a little bit high. CK last checked was 682, quite a few days ago. It looks like we do not have yet the lupus panel to see if she has [id number] DNA or other type of autoantibody. We know her complements were low on the . Microbiology, repeat cultures from the blood samples at dialysis have no growth to date. Respiratory sample, 0 to 5 epi cells, moderate WBCs, no organisms seen. We have a chest x-ray done today with bilateral pleural fluid, infiltrate, pulmonary vascular congestion. ASSESSMENT AND DISCUSSION: Systemic lupus erythematosus; hypocomplementemia; Strep pneumoniae bacteremia; sepsis; acute renal failure, on hemodialysis; evidence of glomerulonephritis, on urinary sediment. Currently, she is on broad-spectrum regimen because of concern with nosocomial infection. Her white cell count keeps getting worse. She does have a pretty good leukoerythroblastic response and she could have untreated and active systemic lupus with glomerulonephritis. There is no evidence of Clostridium difficile colitis at the moment. Job ID: [id number]
--- NOTE | 2019-09-15 18:23 | PRG ---
DATE OF SERVICE: 09/15/2019 SUBJECTIVE: Ms. Barlow actually will awake and follow commands for the nurses during the holiday in the morning. Her Today her tidal volume is 500, pressure support is 17, PEEP is 5, FiO2 is down to 30. OBJECTIVE: VITAL SIGNS: Heart rate 100, blood pressure 118/84, respiratory rates in the 20s. LUNGS: Clear anteriorly. HEART: Regular rhythm. ABDOMEN: Soft. EXTREMITIES: Without edema. LABORATORY DATA: White count 39.5, hemoglobin 9.6, platelets 80,000. She has 22% bands on her peripheral smear. She still has 6% metamyelocytes on her peripheral smear. IMPRESSION: Pneumococcal pneumonia with sepsis. I still would like to believe that her immature cells on her peripheral smear all secondary to demargination with her sepsis. Not sure anyone would recommend a bone marrow biopsy at this point in time. I do not think it is unreasonable tomorrow to consider CT scanning without contrast to rule out an organizing effusion. Overall, she is slowly improving. CRITICAL CARE TIME: 30 minutes. Job ID: [id number]
[2019-09-15 19:20] LABS: ANA Symphony (Qualitative) POSITIVE (Negative); ANA Symphony (Quantitative) Greater than 32.0 Ratio (< 0.7 Negative); CENP IgG Antibody 1.8 EliAU/mL (<7 Negative); Jo-1 IgG Antibody 0.9 EliAU/mL (<7 Negative); RNP70 IgG Antibody Greater than 240.0 EliAU/mL (<7 Negative); SSA/Ro IgG Antibody 6.8 EliAU/mL (<7 Negative); SSB/La IgG Antibody 1.8 EliAU/mL (<7 Negative); Smith D IgG Antibody Greater than 480.0 EliAU/mL (<7 Negative)
[2019-09-16] MEDS: Propofol 1,000 MG/100 ML VIAL IV PRN ×4 (02:38→17:27)
[2019-09-16 04:43] LABS: INR-International Normal Ratio 1.1; PTT 24.4 sec (22.9-36.1); Prothrombin Time 13.8 sec (12.0-14.7)
[2019-09-16 04:56] LABS: ALT (SGPT) 33 U/L (8-55); AST (SGOT) 32 U/L (5-34); Albumin 2.4 g/dL (3.5-5.0); Alkaline Phosphatase 143 U/L (40-110); Anion Gap 21 mmol/L (10-20); BUN (Urea Nitrogen) 72 mg/dL (7.0-18.7); Bilirubin, Total 0.7 mg/dL (0.2-1.2); Calc. Creatinine Clearance 28 mL/min (70-130); Calcium 7.5 mg/dL (7.8-10.44); Carbon Dioxide 22 mmol/L (22-29); Chloride 93 mmol/L (98-107); Estimated GFR-MDRD 14; Glucose 115 mg/dL (70-105); Potassium 4.9 mmol/L (3.5-5.1); Protein, Total 8.4 g/dL (6.0-8.3); Sodium 131 mmol/L (136-145)
[2019-09-16 06:05] LABS: Hemoglobin 10.2 g/dL (12.0-16.0); Mean Corpuscular HGB CONC 33.6 g/dL (32.0-36.0); Mean Corpuscular Hemoglobin 29.4 pg (27.0-31.0); Mean Corpuscular Volume 87.4 fL (78.0-98.0); Mean Platelet Volume 10.3 fL (7.4-10.4); Platelet Count 113 thou/uL (130-400); RBC Distribution Width 16.3 % (11.5-14.5); Red Blood Cell (RBC) Count 3.49 mill/uL (4.20-5.40); White Blood Cell (WBC) Count 39.5 thou/uL (4.8-10.8)
[2019-09-16] MEDS: methylPREDNISolone Sod Succ 40 MG VIAL IVP SCH ×2 (07:20→21:56)
[2019-09-16] MEDS: Lorazepam 2 MG/ML VIAL SLOW IVP PRN ×4 (07:20→14:45)
[2019-09-16] MEDS: Pantoprazole 40 MG VIAL IVP SCH (07:21)
--- NOTE | 2019-09-16 08:46 | PRG ---
DATE OF SERVICE: 09/16/2019 SUBJECTIVE: Ms. Barlow sedation has decreased becomes very, very tachypneic. OBJECTIVE: VITAL SIGNS: She is afebrile. Blood pressure is 163/120 early this morning, heart rates in the 90s, respiratory rates in the teens. LUNGS: Remarkable for coarse equal breath sounds. HEART: Regular rhythm. ABDOMEN: Soft. EXTREMITIES: Without asymmetry. IMPRESSION: 1. Pneumococcal sepsis. 2. Acute renal failure. Given that 2 days prior to admission to the hospital, she was totally fine with no complaints, argues that this is not a lupus flare. Blood cultures are positive for pneumococcus. Her clinical course is consistent with ATN. Nephrology is considering a renal biopsy, but I do not think at this point it is worth the risk associated with the procedure. She will have to be ventilated, chemically paralyzed, transported down to the special procedures room, placed in the prone position, all of which has risk. We will continue with critical care. So, I will have a noncontrast CT of her chest and see how much of her findings on the right is related to pleural effusion. Critical care time 30 min. Job ID: [id number] MTDD
[2019-09-16 09:02] LABS: Vancomycin, Random 18.9 ug/mL (See Comment)
--- NOTE | 2019-09-16 09:12 | PRG ---
DATE OF SERVICE: 09/15/2019 SUBJECTIVE: The patient is seen and examined, still on life support, still on the ventilator. Noted with the following vital signs. OBJECTIVE: VITAL SIGNS: Blood pressure 109/71, pulse of 96, O2 saturation of 100%, and respiratory rate of 20. HEENT: Remarkable for endotracheal tube in place. CARDIOVASCULAR SYSTEM: First and second heart sounds were heard. RESPIRATORY SYSTEM: Revealed vented sounds. DIGESTIVE SYSTEM: Revealed a benign abdomen. EXTREMITIES: No peripheral edema. SKIN: No new gross rash. LYMPHATICS: No lymphadenopathy. LABORATORY INVESTIGATION: Showed a white count of 9500 with hemoglobin 9.6, platelet count of 80,000. Chemistry showed a sodium of 131, BUN of 72 with creatinine of 4.32, serum total protein of 8.4 with globulin fraction of 6.0. IMPRESSION: 1. Anuric acute kidney injury. 2. 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 3. 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 4. History of recent diagnosis of lupus with exacerbation. 5. Cardiopulmonary failure, on the vent. PLAN: 1. Extensive discussions are being held with Interventional Radiology as it relates to kidney biopsy; however, given the platelets of 80,000, this will need to be put on hold to be re-evaluated within the next 24 hours if to rule auto- immune glomerulonephritis and to evaluate for potential crescentic glomerulonephritis. 2. To continue on daily dialysis with ultrafiltration as tolerated by hemodynamics. 3. Further management will be dependent on the clinical course. Job ID: [id number]
[2019-09-16] MEDS: Fluconazole In NaCl,Iso-Osm 100 MG in Admixture Fee 1 EACH IVPB SCH (09:20)
[2019-09-16] MEDS: Vancomycin HCl 500 MG in Sodium Chloride 0.9% 100 ML IVPB SCH (09:48)
--- NOTE | 2019-09-16 10:52 | RAD ---
CHEST 1 VIEW: INDICATION: History of intubation. COMPARISON: Prior exam dated 09/15/2019. FINDINGS: Right IJ dialysis catheter, ET tube, and gastric catheter appear unchanged. There is a left IJ centr al venous catheter that is unchanged. No pneumothorax is evident. Bilateral pleural effusions, righ t greater than left, are similar appearing. Airspace disease of the right lower lobe is similar-appe aring. IMPRESSION: Stable exam. POS: BH
[2019-09-16] MEDS: Meropenem 500 MG in Sodium Chloride 0.9% 100 ML IVPB SCH (11:19)
--- NOTE | 2019-09-16 14:52 | PDOC.HOSPP ---
- Subjective Encounter Date: 09/16/19 Encounter Time: 08:00 Subjective: The patient intubated, still agitated when weaned off sedation - Objective Vital Signs & Weight: Vital Signs (12 hours) Temp Pulse Resp BP Pulse Ox 09/16/19 11:00 98.4 F 09/16/19 10:53 99 115/92 H 09/16/19 10:52 98 31 H 97 09/16/19 07:11 22 H 100 09/16/19 07:00 98 F 09/16/19 06:46 98 163/120 H 09/16/19 06:44 98 22 H 100 09/16/19 06:00 20 09/16/19 04:00 98.5 F 24 H Weight Admit Weight 213 lb Weight 209 lb 10.554 oz Most Recent Monitor Data Heart Rate from ECG 103 NIBP 121/84 NIBP BP-Mean 96 Respiration from ECG 18 SpO2 99 I&O: 09/15/19 09/16/19 09/17/19 06:59 06:59 06:59 Intake Total 2748 2738 90 Output Total 25 5 0 Balance 2723 2733 90 Result Diagrams: 09/16/19 03:50 09/16/19 03:50 Additional Labs: Accuchecks 09/16/19 09/15/19 09/15/19 00:47 20:52 15:09 POC Glucose 106 112 H 111 H Hospitalist ROS - Review of Systems Constitutional: denies: fever, chills - Medication Medications: Active Medications Generic Name Dose Route Start Last Admin Trade Name Freq PRN Reason Stop Dose Admin Acetaminophen 650 mg 09/08/19 00:20 09/10/19 05:46 Tylenol PO 650 mg Q4H PRN Administration Headache/Fever/Mild Pain (1-3) Albuterol/Ipratropium 3 ml 09/11/19 22:30 09/16/19 10:52 Duoneb NEB 3 ml [id number] GIA Administration Hydralazine HCl 10 mg 09/15/19 12:00 09/15/19 12:16 Apresoline SLOW IVP 10 mg Q4H PRN Administration SBP Greater Than 170 Meropenem 500 mg/ Sodium 100 mls @ 200 mls/hr 09/14/19 12:00 09/16/19 11:19 Chloride IVPB 100 mls Q24HR GIA Administration Vancomycin HCl 500 mg/ Sodium 100 mls @ 100 mls/hr 09/14/19 10:15 09/16/19 09 :48 Chloride IVPB 100 mls WILLCALL GIA Administration Dexmedetomidine HCl 400 mcg/ 100 mls @ 0 mls/hr 09/14/19 17:45 09/16/19 12:43 Sodium Chloride IVPB 100 mls INF GIA Administration Protocol Per Protocol Fluconazole/Sodium Chloride 50 mls @ 100 mls/hr 09/15/19 11:00 09/16/19 09:20 100 mg/ Miscellaneous IVPB 50 mls Medication 1100 GIA Administration Lorazepam 2 mg 09/08/19 05:32 09/16/19 14:45 Ativan SLOW IVP 10/08/19 05:32 2 mg Q1H PRN Administration Breakthrough agitation Methylprednisolone Sodium Succinate 20 mg 09/12/19 21:00 09/16/19 07:20 Solu-Medrol IVP 20 mg BID GIA Administration Morphine Sulfate 2 mg 09/08/19 05:32 09/13/19 10:49 Morphine SLOW IVP 10/08/19 05:32 2 mg Q1H PRN Administration BREAKTHROUGH PAIN/Agitation Pantoprazole Sodium 40 mg 09/11/19 09:00 09/16/19 07:21 Protonix IVP 40 mg DAILY GIA Administration Propofol 1,000 mg 09/08/19 05:32 09/16/19 11:41 Diprivan IV 10/08/19 05:32 1,000 mg INF PRN Administration TO ACHIEVE GOAL RASS Protocol Sodium Chloride 10 ml 09/08/19 09:00 09/16/19 07:21 Flush - Normal Saline IVF 10 ml Q12HR GIA Administration Sterile Water 1 ml 09/08/19 01:03 09/13/19 20:34 Bacteriostatic Water FS 1 ml PRN PRN Administration RECONSTITUTION - Exam General Appearance: NAD General - other findings: intubated Eye: PERRL ENT: normocephalic atraumatic, no oropharyngeal lesions Neck: no JVD Heart: RRR, no murmur, no gallops, no rubs Respiratory: rales Gastrointestinal: soft, non-tender, non-distended, normal bowel sounds Extremities: no cyanosis, no clubbing, no edema Skin: no rashes Hosp A/P - Plan Chest Xray 09/14: pulm edema This is a 33 year old female who presented with rapidly progressive shortness of breath requiring intubation #Acute hypoxic respiratory failure secondary to sepsis from strep bacteremia and staph pneumonia - blood cultures on admission showed 2/2 strep. Sputum culture growing staph aureus MSSA. - she was on IV ceftriaxone, switched to vanc and meropenem. WBC stable at 39. ID is following - plan for CT chest today #Acute kidney Injury likely from Lupus Nephritis vs RPGN vs post strep GN - creatinine 4.32. -had low C3 and C4 on admission, diagnosed with lupus last month - continue dialysis Thrombocytopenia - improving, platelet count 113 Anemia - Hb up to 9.6, s/p 3 units pRBC Hyponatremia - sodium 131, continue with dialysis Code status: full code
--- NOTE | 2019-09-16 15:09 | CT ---
CT chest noncontrast HISTORY: Pneumonia. Loculated pleural effusion. Follow-up. COMPARISON: 07/18/2018. FINDINGS: Dense airspace disease with air bronchograms involves the entirety of the right lower lobe, the right middle lobe, the posterior segment of the right upper lobe, and a superior and posterior basilar segments of the left lower lobe. Component of atelectasis also most pronounced at the right m iddle lobe. At the posterior medial aspect of the right lower lobe, a small area of cystic bronchiectasis is apparent. In addition, there are multiple ill-defined more masslike areas of infiltrate, especially within the lateral aspect of the right upper lobe, measuring up to 2.3 cm x 2.0 cm, containing an air bronchogram. At the lateral basilar segment left lower lobe, a mass abutting the pleura of the sr. media manager ior aspect of the diaphragm is 2.6 cm length by 3.0 cm depth by 2.1 cm width. Air bronchograms not seen within this mass. There is a small amount right pleural fluid within the posterior and lateral aspects of the pleural s pace. Given that a small amount tracks along the right lateral chest wall, it may be loculated, although there is no multiloculated component or drainable fluid collection. No internal gas. Lack of contrast limits evaluation mediastinum. No adenopathy evident. Slightly enlarged, reactive ap pearing lymph nodes are present at each axilla. There is similar in appearance to the previous exam. Endotracheal catheter, central venous catheter, and nasogastric tube partially visualized. IMPRESSION : Small amount of right pleural fluid. While a portion, tracking along the lateral pleural space, may b e loculated, it is not a drainable fluid collection. No CT evidence of complication. Dense bilateral multifocal pneumonia. Some components in the right middle lobe suggest recurrent/detonator maker tana inflammation. In addition to the consolidation, there are areas of more focal masslike appearance of the soft tissu e density abnormalities, especially at the left posterolateral lung base. Please consider follow-up CT to evaluate for resolution of these abnormalities.
--- NOTE | 2019-09-16 16:59 | PRG ---
DATE OF SERVICE: 09/16/2019 SUBJECTIVE: The patient is seen and examined. Still on ventilator. Able to respond to verbal stimuli. Noted with the following vital signs. OBJECTIVE: VITAL SIGNS: Temperature 98.4, pulse 98, respiratory rate of 22, blood pressure 115/92, O2 saturation of 97% to 100%. HEENT: Remarkable for endotracheal tube in place. CARDIOVASCULAR: First and second heart sounds were heard. RESPIRATORY: Revealed vented sounds. DIGESTIVE SYSTEM: Revealed a benign abdomen with positive bowel sounds. EXTREMITIES: No peripheral edema. SKIN: No new gross rash. LYMPHATICS: No peripheral lymphadenopathy. LABORATORY INVESTIGATION: Showed a hemoglobin of 10.2, white count of 39,500. Creatinine 4.32 with BUN of 72. IMPRESSION: 1. Anuric acute kidney injury, likely in the context of immune complex-mediated glomerulonephritis versus crescentic glomerulonephritis on top of sepsis-induced acute tubular necrosis. 2. Thrombocytopenia, much improved. 3. Anemia of critical illness. 4. Recent diagnosis of systemic lupus erythematosus. PLAN: 1. The patient was to undergo renal biopsy. However, given the significant risk involved given the clinical condition of this patient, the Critical Care Team decided to put this on hold for now pending clinical improvement of this patient if renal function does not improve. 2. The patient to continue with renal replacement therapy with ultrafiltration as tolerated by hemodynamics. 3. Vent management per the Critical Team. 4. The patient to continue with erythropoiesis-stimulating agent. 5. Further management to be dependent on the clinical course. Please avoid any potential nephrotoxic exposure. Job ID: [id number]
[2019-09-17] MEDS: Propofol 1,000 MG/100 ML VIAL IV PRN ×4 (02:24→22:41)
[2019-09-17] MEDS: Pantoprazole 40 MG VIAL IVP SCH (08:26)
[2019-09-17] MEDS: methylPREDNISolone Sod Succ 40 MG VIAL IVP SCH (08:26)
[2019-09-17 08:43] LABS: Vancomycin, Random 19.8 ug/mL (See Comment)
[2019-09-17] MEDS ORDERED: Heparin 10,000 UNITS/ 10 ML VIAL ONE (09:27)
[2019-09-17] MEDS: Fluconazole In NaCl,Iso-Osm 100 MG in Admixture Fee 1 EACH IVPB SCH (10:05)
[2019-09-17] MEDS ORDERED: methylPREDNISolone Sod Succ 1 GM in Sodium Chloride 0.9% 100 ML IVPB SCH (15:00)
[2019-09-17] MEDS: Vancomycin HCl 500 MG in Sodium Chloride 0.9% 100 ML IVPB SCH (15:20)
[2019-09-17] MEDS: Meropenem 500 MG in Sodium Chloride 0.9% 100 ML IVPB SCH (15:23)
--- NOTE | 2019-09-17 16:02 | PRG ---
DATE OF SERVICE: 09/17/2019 SUBJECTIVE: Lorena Barlow is much more alert. She awakens easily. She is cooperative. OBJECTIVE: VITAL SIGNS: Heart rate is in the 90s, blood pressure 122/78, and respiratory rate in the teens. LUNGS: Remarkable for decreased breath sounds at the right base. HEART: Regular rhythm. ABDOMEN: Soft. EXTREMITIES: Without asymmetry. LABORATORY DATA: There is no new lab today. IMPRESSION: 1. Renal failure associated with sepsis. 2. 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 She had been referred for renal biopsy. There is no reason to take her downstairs at this point in time, paralyze her, prone ventilator into a renal biopsy . She will be started on high-dose IV steroids per Rheumatology's recommendations today. We are making progress towards weaning. She is down to an IMV of 4 after dialysis today, and we will consider a spontaneous breathing trial in the morning. Her chest CT yesterday showed just a dense right lower lobe alveolar infiltrate with air bronchograms in the right middle lobe alveolar infiltrate. She had minimal pleural effusion. So, her findings on radiograph were not a loculated effusion that needs chest tube drainage or thoracoscopy at this point. CRITICAL CARE TIME: 30 minutes. Job ID: [id number]
--- NOTE | 2019-09-17 17:19 | PDOC.HOSPP ---
- Subjective Encounter Date: 09/17/19 Encounter Time: 09:00 Subjective: cC: f /u respiratory failure SHe was seen off sedation. she was following commands. Patient's mother states that patient was crying when she told her she had to go home. Patient denies any chest pain . She is making little urine - Objective Vital Signs & Weight: Vital Signs (12 hours) Temp Pulse Resp BP Pulse Ox 09/17/19 16:00 98.9 F 09/17/19 15:59 15 09/17/19 14:32 94 122/78 09/17/19 14:00 15 09/17/19 12:00 98.4 F 15 09/17/19 10:32 95 126/83 09/17/19 10:00 22 H 09/17/19 08:00 21 H 09/17/19 07:52 100 09/17/19 07:00 98.9 F 98 119/76 09/17/19 06:00 16 Weight Admit Weight 213 lb Weight 205 lb 4.006 oz Most Recent Monitor Data Heart Rate from ECG 105 NIBP 108/77 NIBP BP-Mean 87 Respiration from ECG 18 SpO2 98 I&O: 09/16/19 09/17/19 09/18/19 06:59 06:59 06:59 Intake Total 2738 1940 0 Output Total 5 10 Balance 2733 1930 0 Result Diagrams: 09/16/19 03:50 09/16/19 03:50 Hospitalist ROS - Review of Systems Constitutional: denies: fever, chills - Medication Medications: Active Medications Generic Name Dose Route Start Last Admin Trade Name Freq PRN Reason Stop Dose Admin Acetaminophen 650 mg 09/08/19 00:20 09/10/19 05:46 Tylenol PO 650 mg Q4H PRN Administration Headache/Fever/Mild Pain (1-3) Albuterol/Ipratropium 3 ml 09/11/19 22:30 09/17/19 14:31 Duoneb NEB 3 ml [id number] GIA Administration Hydralazine HCl 10 mg 09/15/19 12:00 09/15/19 12:16 Apresoline SLOW IVP 10 mg Q4H PRN Administration SBP Greater Than 170 Meropenem 500 mg/ Sodium 100 mls @ 200 mls/hr 09/14/19 12:00 09/17/19 15:23 Chloride IVPB 100 mls Q24HR GIA Administration Vancomycin HCl 500 mg/ Sodium 100 mls @ 100 mls/hr 09/14/19 10:15 09/17/19 15 :20 Chloride IVPB 100 mls WILLCALL GIA Administration Dexmedetomidine HCl 400 mcg/ 100 mls @ 0 mls/hr 09/14/19 17:45 09/17/19 14:31 Sodium Chloride IVPB 100 mls INF GIA Administration Protocol Per Protocol Fluconazole/Sodium Chloride 50 mls @ 100 mls/hr 09/15/19 11:00 09/17/19 10:05 100 mg/ Miscellaneous IVPB 50 mls Medication 1100 GIA Administration Methylprednisolone Sodium 116 mls @ 116 mls/hr 09/17/19 15:00 09/17/19 15:48 Succinate 1 gm/ Sodium IVPB 09/19/19 15:59 116 mls Chloride 1500 GIA Administration Lorazepam 2 mg 09/08/19 05:32 09/16/19 14:45 Ativan SLOW IVP 10/08/19 05:32 2 mg Q1H PRN Administration Breakthrough agitation Morphine Sulfate 2 mg 09/08/19 05:32 09/13/19 10:49 Morphine SLOW IVP 10/08/19 05:32 2 mg Q1H PRN Administration BREAKTHROUGH PAIN/Agitation Pantoprazole Sodium 40 mg 09/11/19 09:00 09/17/19 08:26 Protonix IVP 40 mg DAILY GIA Administration Propofol 1,000 mg 09/08/19 05:32 09/17/19 12:22 Diprivan IV 10/08/19 05:32 1,000 mg INF PRN Administration TO ACHIEVE GOAL RASS Protocol Sodium Chloride 10 ml 09/08/19 09:00 09/17/19 08:27 Flush - Normal Saline IVF 10 ml Q12HR GIA Administration Sterile Water 1 ml 09/08/19 01:03 09/13/19 20:34 Bacteriostatic Water FS 1 ml PRN PRN Administration RECONSTITUTION - Exam General Appearance: NAD, awake alert Eye: PERRL, anicteric sclera ENT: normocephalic atraumatic, no oropharyngeal lesions Neck: supple, symmetric, no JVD, no thyromegaly Heart: RRR, no murmur, no gallops, no rubs Respiratory: CTAB, no wheezes, no rales, no ronchi Gastrointestinal: soft, non-tender, non-distended, normal bowel sounds Extremities: no cyanosis, no clubbing, no edema Skin: normal turgor, no lesions, no rashes Neurological: cranial nerve grossly intact, normal sensation to touch, no focal deficits, no new deficit Musculoskeletal: normal tone, normal strength, no muscle wasting Psychiatric: normal affect, normal behavior, A&O x 3, oriented to person Hosp A/P - Plan Chest Xray 09/14: pulm edema This is a 33 year old female who presented with rapidly progressive shortness of breath requiring intubation #Acute hypoxic respiratory failure secondary to sepsis from strep bacteremia and staph pneumonia - blood cultures on admission showed 2/2 strep. Sputum culture growing staph aureus MSSA. - she was on IV ceftriaxone, switched to vanc and meropenem 09/13. Also on IV fluconazole - repeat CBC today - CT chest shows bilateral infiltrates Acute encephalopathy - secondary to sepsis - improved, patient following commands #Acute kidney Injury likely from Lupus Nephritis vs RPGN vs post strep GN - getting daily dialysis until extubation Thrombocytopenia - improving, platelet count 113 Anemia - Hb up to 9.6, s/p 3 units pRBC Hyponatremia - sodium 131, continue with dialysis Code status: full code
[2019-09-17 18:27] LABS: Anion Gap 22 mmol/L (10-20); BUN (Urea Nitrogen) 72 mg/dL (7.0-18.7); Calc. Creatinine Clearance 27 mL/min (70-130); Calcium 7.4 mg/dL (7.8-10.44); Carbon Dioxide 20 mmol/L (22-29); Chloride 94 mmol/L (98-107); Estimated GFR-MDRD 14; Glucose 102 mg/dL (70-105); Potassium 4.9 mmol/L (3.5-5.1); Sodium 131 mmol/L (136-145)
--- NOTE | 2019-09-18 00:22 | PRG ---
DATE OF SERVICE: 09/17/2019 SUBJECTIVE: The patient was seen and examined today. Noted with the following vital signs. OBJECTIVE: VITAL SIGNS: Afebrile, temperature 98.9, pulse 94, respiratory rate of 15, blood pressure 122/72, and O2 saturation of 100% on vent. HEENT: Remarkable for endotracheal tube in place. CARDIOVASCULAR SYSTEM: First and second heart sounds were heard. RESPIRATORY SYSTEM: Revealed vented sounds. DIGESTIVE SYSTEM: Revealed a benign abdomen. EXTREMITIES: No peripheral edema. SKIN: No new gross rash. LYMPHATICS: No peripheral lymphadenopathy. LABORATORY INVESTIGATION: Showed a creatinine of 4.32 with BUN of 72. IMPRESSION: 1. Acute kidney injury, anuric, likely in the context of problem #2. 2. Immune complex-mediated glomerulonephritis, possibly post-strep versus other potential crescentic glomerulonephritis etiology. 3. Anemia status post 3 units of blood on erythropoiesis stimulating agent. 4. Cardiopulmonary failure, on vent. PLAN: 1. The patient to continue with daily dialysis until the patient is deemed good for extubation. 2. Rheumatology steroids. 3. Further management will be dependent on the clinical course. Job ID: [id number]
[2019-09-18] MEDS: Lorazepam 2 MG/ML VIAL SLOW IVP PRN (01:20)
[2019-09-18 04:29] LABS: Hemoglobin 10.1 g/dL (12.0-16.0); Mean Corpuscular HGB CONC 32.6 g/dL (32.0-36.0); Mean Corpuscular Hemoglobin 28.9 pg (27.0-31.0); Mean Corpuscular Volume 88.8 fL (78.0-98.0); Mean Platelet Volume 11.9 fL (7.4-10.4); Platelet Count 143 thou/uL (130-400); Red Blood Cell (RBC) Count 3.49 mill/uL (4.20-5.40); White Blood Cell (WBC) Count 25.2 thou/uL (4.8-10.8)
[2019-09-18 04:49] LABS: Anion Gap 19 mmol/L (10-20); BUN (Urea Nitrogen) 62 mg/dL (7.0-18.7); Calc. Creatinine Clearance 32 mL/min (70-130); Calcium 7.9 mg/dL (7.8-10.44); Carbon Dioxide 23 mmol/L (22-29); Chloride 94 mmol/L (98-107); Estimated GFR-MDRD 17; Glucose 146 mg/dL (70-105); Potassium 4.4 mmol/L (3.5-5.1); Sodium 132 mmol/L (136-145)
[2019-09-18 06:50] LABS: Actual Bicarbonate (HCO3a) 23.3 mEq/L (22-28); Base Excess (BEa) -1.3 mEq/L (-2.0 to +3.0); CO2 Tension 38.5 mmHg (35.0-45.0); Calcium, Ionized 1.03 mmol/L (1.12-1.30); O2 Tension (PaO2), arterial 89.7 mmHg (80.0-100.0); Potassium - ABG Lab 4.65 mmol/L (3.70-5.30)
[2019-09-18 06:52] LABS: ALV-art Gradient 76.075 (0-20); Puncture Site RBA
--- NOTE | 2019-09-18 08:14 | PRG ---
DATE OF SERVICE: 09/18/2019 SUBJECTIVE: Ms. 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 Negative inspiratory force and a leak test will be checked now. She is turned down to a rate of 4, pressure support of 5, and PEEP of 5. She appears reasonably comfortable at this time. OBJECTIVE: VITAL SIGNS: She is afebrile. Blood pressure 125/90, heart rate 88 , and respiratory rates in the teens. LUNGS: Unchanged. HEART: Unchanged. ABDOMEN: Unchanged. LABORATORY DATA: White count 25.2, down from 39; hemoglobin 10.1; platelets 143. Her leukocytosis is expected with her steroids. Sodium 132, potassium 4.4, chloride 94, bicarb 23, BUN 62, and creatinine 3.69. PH of 7.40, CO2 of 38, and pO2 of 89. IMPRESSION: 1. Pneumococcal sepsis with multiorgan dysfunction on presentation. 2. 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 She started 3 days of high-dose steroids. 3. Pre-existing lupus followed by Dina java consultant with a recent diagnosis. We are working towards weaning and extubation if she meets criteria today and does well with spontaneous breathing trial. CRITICAL CARE TIME: 30 minutes. Job ID: [id number] MTDD
[2019-09-18] MEDS ORDERED: Morphine 2 MG/ML SYRINGE SLOW IVP PRN (08:56)
[2019-09-18] MEDS ORDERED: Lorazepam 2 MG/ML VIAL SLOW IVP PRN (08:57)
[2019-09-18] MEDS ORDERED: Fentanyl BOLUS 250 ML IVPB PRN (08:58)
[2019-09-18] MEDS ORDERED: fentaNYL Citrate/PF 2,000 MCG in Sodium Chloride 0.9% 60 ML IV SCH (09:00)
[2019-09-18] MEDS ORDERED: Heparin 10,000 UNITS/ 10 ML VIAL ONE ×2 (09:26→11:06)
[2019-09-18 09:40] LABS: Vancomycin, Random 23.5 ug/mL (See Comment)
[2019-09-18] MEDS: Fluconazole In NaCl,Iso-Osm 100 MG in Admixture Fee 1 EACH IVPB SCH (10:43)
[2019-09-18] MEDS: Pantoprazole 40 MG VIAL IVP SCH (10:44)
[2019-09-18] MEDS: Meropenem 500 MG in Sodium Chloride 0.9% 100 ML IVPB SCH (12:22)
[2019-09-18] MEDS ORDERED: Acetaminophen 650 MG Suppository PR PRN (13:06)
--- NOTE | 2019-09-18 14:34 | PDOC.HOSPP ---
- Subjective Encounter Date: 09/18/19 Encounter Time: 14:32 Subjective: The patient was extubated this morning. The patient has no complaints other than wanting water and vanilla pudding. She also is requesting to walk. She is getting dialysis currently - Objective Vital Signs & Weight: Vital Signs (12 hours) Temp Pulse Resp Pulse Ox 09/18/19 14:28 92 23 H 96 09/18/19 12:00 98.8 F 09/18/19 11:06 100 09/18/19 10:20 93 20 100 09/18/19 08:00 20 09/18/19 07:46 100 09/18/19 07:00 98.4 F 09/18/19 06:46 86 09/18/19 06:00 18 09/18/19 04:00 97.9 F 18 09/18/19 03:07 81 19 100 Weight Admit Weight 213 lb Weight 199 lb 15.348 oz Most Recent Monitor Data Heart Rate from ECG 100 NIBP 160/109 NIBP BP-Mean 126 Respiration from ECG 32 SpO2 100 I&O: 09/17/19 09/18/19 09/19/19 06:59 06:59 06:59 Intake Total 1939 2043 97 Output Total 10 Balance 1929 2043 97 Result Diagrams: 09/18/19 03:55 09/18/19 03:55 Hospitalist ROS - Review of Systems Constitutional: denies: fever, chills - Medication Medications: Active Medications Generic Name Dose Route Start Last Admin Trade Name Freq PRN Reason Stop Dose Admin Albuterol/Ipratropium 3 ml 09/11/19 22:30 09/18/19 14:28 Duoneb NEB 3 ml [id number] GIA Administration Hydralazine HCl 10 mg 09/15/19 12:00 09/15/19 12:16 Apresoline SLOW IVP 10 mg Q4H PRN Administration SBP Greater Than 170 Meropenem 500 mg/ Sodium 100 mls @ 200 mls/hr 09/14/19 12:00 09/18/19 12:22 Chloride IVPB 100 mls Q24HR GIA Administration Vancomycin HCl 500 mg/ Sodium 100 mls @ 100 mls/hr 09/14/19 10:15 09/17/19 15 :20 Chloride IVPB 100 mls WILLCALL GIA Administration Fluconazole/Sodium Chloride 50 mls @ 100 mls/hr 09/15/19 11:00 09/18/19 10:43 100 mg/ Miscellaneous IVPB 50 mls Medication 1100 GIA Administration Pantoprazole Sodium 40 mg 09/11/19 09:00 09/18/19 10:44 Protonix IVP 40 mg DAILY GIA Administration Sodium Chloride 10 ml 09/08/19 09:00 09/18/19 10:44 Flush - Normal Saline IVF 10 ml Q12HR GIA Administration Sterile Water 1 ml 09/08/19 01:03 09/13/19 20:34 Bacteriostatic Water FS 1 ml PRN PRN Administration RECONSTITUTION - Exam General Appearance: NAD, awake alert Eye: PERRL, anicteric sclera ENT: normocephalic atraumatic ENT - other findings: dry mouth. Difficulty closing mouth to take sips of water Neck: supple, no JVD Heart: RRR, no murmur, no gallops, no rubs Respiratory: rales Gastrointestinal: soft, non-tender, non-distended, normal bowel sounds Extremities: no cyanosis, no clubbing, no edema Skin: normal turgor, no lesions, no rashes Neurological: cranial nerve grossly intact, normal sensation to touch, no focal deficits, no new deficit Musculoskeletal: normal tone, normal strength, no muscle wasting Hosp A/P - Plan Chest Xray 09/14: pulm edema This is a 33 year old female who presented with rapidly progressive shortness of breath requiring intubation #Acute hypoxic respiratory failure secondary to sepsis from strep bacteremia and staph pneumonia - blood cultures on admission showed 2/2 strep. Sputum culture growing staph aureus MSSA. - she was on IV ceftriaxone, switched to vanc and meropenem 09/13 due to persistent resp failure. Also on IV fluconazole. WBC downtrending to 25 - CT chest shows multifocal pneumonia - IV steroids high dose started #Acute kidney Injury likely from Lupus Nephritis vs RPGN vs post strep GN - getting daily dialysis currently - consider renal biopsy as outpatient Thrombocytopenia - platelet count 141 Anemia - Hb up to 10, s/p 3 units pRBC Hyponatremia - sodium 132, continue with dialysis Physical deconditioning - PT evaluation Acute encephalopathy - resolved Code status: full code
[2019-09-18] MEDS: methylPREDNISolone Sod Succ 1 GM in Sodium Chloride 0.9% 250 ML 250 ML IVPB SCH (18:05)
--- NOTE | 2019-09-18 19:00 | PRG ---
DATE OF SERVICE: 09/18/2019 SUBJECTIVE: The patient has been extubated. She is able to answer questions. Speech is still impaired because of the recent intubation. She does not appear in distress and she denies any headaches. No chest pain. No abdominal pain and has an indwelling Hagen catheter. OBJECTIVE: VITAL SIGNS: Showed T-max 99.4, blood pressure 180/115, heart rate 107, and respiratory rate 31. HEENT: Dry oral cavity. LUNGS: Somewhat coarse breath sounds. HEART: S1 and S2. ABDOMEN: Soft, not tender. Hagen catheter. LABORATORY DATA: White cell count is at 25.2, hemoglobin 10.1, platelets 143. Creatinine 3.69. 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 She has been given a loading dose of corticosteroids and she also had a strep pneumoniae infection, which is being treated. So, overall I think she had a combination of uncontrolled systemic lupus with probable nephritis and associated Streptococcus pneumoniae bacteremia and pneumonia. Job ID: [id number]
[2019-09-18] MEDS: hydrALAZINE 20 MG/ML VIAL SLOW IVP PRN (20:49)
--- NOTE | 2019-09-18 22:57 | PRG ---
DATE OF SERVICE: 09/18/2019 SUBJECTIVE: Patient is seen and examined. Extubated today. Noted with the following vital signs. OBJECTIVE: VITAL SIGNS: Blood pressure of 154/103, respiratory rate of 16, pulse of 112. HEENT EXAMINATION: Remarkable for dry oral mucosa. No conjunctival injection or icterus. NECK: Supple. CARDIOVASCULAR SYSTEM: First and second heart sounds were heard. RESPIRATORY SYSTEM: Clear to auscultation. DIGESTIVE SYSTEM: Revealed a benign abdomen. EXTREMITIES: No peripheral edema. LABORATORY INVESTIGATIONS: Significant for elevated autoimmune antibody panel. Creatinine of 3.69 with BUN of 62, sodium of 132. CBC showed hemoglobin of 10.1 with a white count of 25,000. IMPRESSION: 1. 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 Potential etiologies include, but not limited to, post strep immune complex glomerulonephritis, lupus nephritis with significant flare up, possible component of sepsis-induced acute tubular necrosis. 2. Anemia with leukocytosis, seems to be improving. 3. Cardiopulmonary failure, status post extubation, doing well. PLAN: 1. The patient is being dialyzed today and after today, we will skip for dialysis over the weekend and plan on placing this patient on Saturday, Saturday, Saturday schedule dialysis. I will be able to know if the kidney is able to mount any significant recovery. 2. The patient currently does not have a Hagen catheter. However, if the patient begins to show evidence of renal recovery in terms of urinary production, we will request for a Hagen catheter to keep an accurate path on this patient's renal recovery. 3. We will likely get the rn case management involve to begin to plan towards outpatient dialysis placement in case this patient's renal function does not recover. Job ID: [id number]
[2019-09-19 04:26] LABS: Band 9 % (5-11); Hemoglobin 10.4 g/dL (12.0-16.0); Hypochromia SLIGHT = 6-15 cells (100X) (0-5/hpf); Lymphocytes 5 % (21-51); MDiff Complete? YES; Mean Corpuscular HGB CONC 33.5 g/dL (32.0-36.0); Mean Corpuscular Hemoglobin 29.7 pg (27.0-31.0); Mean Corpuscular Volume 88.6 fL (78.0-98.0); Mean Platelet Volume 11.4 fL (7.4-10.4); Metamyelocyte 3 % (0-0); Monocytes 2 % (0-10); Neutrophil 81 % (42-75); Platelet Count 181 thou/uL (130-400); Platelet Morphology Comment Appears Adequate; RBC Distribution Width 16.4 % (11.5-14.5); Red Blood Cell (RBC) Count 3.52 mill/uL (4.20-5.40); White Blood Cell (WBC) Count 25.6 thou/uL (4.8-10.8)
[2019-09-19 04:28] LABS: Anion Gap 18 mmol/L (10-20); BUN (Urea Nitrogen) 51 mg/dL (7.0-18.7); Calc. Creatinine Clearance 35 mL/min (70-130); Calcium 7.8 mg/dL (7.8-10.44); Carbon Dioxide 24 mmol/L (22-29); Chloride 97 mmol/L (98-107); Estimated GFR-MDRD 20; Glucose 133 mg/dL (70-105); Potassium 4.2 mmol/L (3.5-5.1); Sodium 135 mmol/L (136-145)
--- NOTE | 2019-09-19 09:06 | PRG ---
DATE OF SERVICE: 09/19/2019 SUBJECTIVE: The patient was extubated yesterday. She is doing well so far. She is up in a chair. OBJECTIVE: VITAL SIGNS: Temperature 98.9, pulse 101, blood pressure 140/92, and O2 sat 99%. HEENT: Unremarkable. NECK: No JVD. LUNGS: Clear to auscultation anteriorly. CARDIAC: S1 and S2, regular. ABDOMEN: Soft. EXTREMITIES: No edema. DIAGNOSTIC DATA: Her chest x-ray shows bibasilar effusions, perhaps a right lower lobe infiltrate, overall improved. LABORATORY DATA: White blood cell count 25.6, hematocrit 31.2, and platelet count 181. Sodium 135, potassium 4.2, chloride 97, CO2 of 24, BUN 51, creatinine 3.2, and glucose 133. ASSESSMENT: 1. Pneumococcal sepsis with multiple organ dysfunction. 2. Status post respiratory failure, requiring mechanical ventilation. 3. Lupus nephritis. PLAN: She has been extubated. Speech therapy will assess her to see if she is a candidate for eating. Dr. Mckenna is managing her antibiotics. She is also on high-dose steroids. Overall prognosis is guarded. Probably needs to stay in ICU one more day. Job ID: [id number]
--- NOTE | 2019-09-19 09:12 | RAD ---
PORTABLE CHEST ONE VIEW: 09/19/2019 4:59 a.m. HISTORY: Respiratory failure. Pneumonia. COMPARISON: 09/16/2019 FINDINGS: Heart size is normal. Endotracheal and nasogastric tubes have been removed in the interim. Left-sided central venous catheter and right-sided dialysis catheter remain in place. There are air space opaci ties in the left mid lung and in the right lower lung with accompanying right effusion. No pneumothor aces are seen. POS: OFF
[2019-09-19] MEDS: Pantoprazole 40 MG VIAL IVP SCH (09:37)
[2019-09-19 10:04] LABS: Vancomycin, Random 14.7 ug/mL (See Comment)
[2019-09-19] MEDS: Fluconazole In NaCl,Iso-Osm 100 MG in Admixture Fee 1 EACH IVPB SCH (11:28)
[2019-09-19] MEDS: Meropenem 500 MG in Sodium Chloride 0.9% 100 ML IVPB SCH (11:28)
[2019-09-19] MEDS: methylPREDNISolone Sod Succ 1 GM in Sodium Chloride 0.9% 250 ML 250 ML IVPB SCH (15:12)
--- NOTE | 2019-09-19 15:23 | PDOC.HOSPP ---
- Subjective Encounter Date: 09/19/19 Encounter Time: 12:20 Subjective: s/p extubated, AOx2; able to ans few qs., looks quite lethargic. - Objective Vital Signs & Weight: Vital Signs (12 hours) Temp Pulse Resp BP BP Pulse Ox 09/19/19 14:52 103 H 19 100 09/19/19 13:27 148/98 H 157/97 H 09/19/19 11:00 98.3 F 09/19/19 10:42 98 19 100 09/19/19 08:00 100 09/19/19 07:50 104 H 26 H 100 09/19/19 07:00 98.9 F 09/19/19 04:00 98.8 F Weight Admit Weight 213 lb Weight 196 lb 3.382 oz Most Recent Monitor Data Heart Rate from ECG 108 NIBP 157/97 NIBP BP-Mean 117 Respiration from ECG 31 SpO2 100 I&O: 09/18/19 09/19/19 09/20/19 06:59 06:59 06:59 Intake Total 2043 748 Output Total 0 Balance 2043 748 Result Diagrams: 09/19/19 03:52 09/19/19 03:52 Hospitalist ROS - Medication Medications: Active Medications Generic Name Dose Route Start Last Admin Trade Name Freq PRN Reason Stop Dose Admin Acetaminophen 650 mg 09/18/19 13:06 09/18/19 14:40 Tylenol [place] 650 mg Q4H PRN Administration Headache/Fever or Pain Albuterol/Ipratropium 3 ml 09/11/19 22:30 09/19/19 14:52 Duoneb NEB 3 ml [id number] GIA Administration Hydralazine HCl 10 mg 09/15/19 12:00 09/18/19 20:49 Apresoline SLOW IVP 10 mg Q4H PRN Administration SBP Greater Than 170 Meropenem 500 mg/ Sodium 100 mls @ 200 mls/hr 09/14/19 12:00 09/19/19 11:28 Chloride IVPB 100 mls Q24HR GIA Administration Vancomycin HCl 750 mg/ Sodium 250 mls @ 250 mls/hr 09/14/19 10:15 09/19/19 11 :28 Chloride IVPB 250 mls WILLCALL GIA Administration Vancomycin HCl 500 mg/ Sodium 100 mls @ 100 mls/hr 09/14/19 10:15 09/17/19 15 :20 Chloride IVPB 100 mls WILLCALL GIA Administration Fluconazole/Sodium Chloride 50 mls @ 100 mls/hr 09/15/19 11:00 09/19/19 11:28 100 mg/ Miscellaneous IVPB 50 mls Medication 1100 GIA Administration Methylprednisolone Sodium 266 mls @ 266 mls/hr 09/18/19 15:00 09/19/19 15:12 Succinate 1 gm/ Sodium IVPB 09/19/19 15:59 266 mls Chloride 1500 GIA Administration Pantoprazole Sodium 40 mg 09/11/19 09:00 09/19/19 09:37 Protonix IVP 40 mg DAILY GIA Administration Sodium Chloride 10 ml 09/08/19 09:00 09/19/19 11:29 Flush - Normal Saline IVF 10 ml Q12HR GIA Administration Sodium Chloride 10 ml 09/11/19 08:54 09/19/19 09:37 Normal Saline Pf FS 10 ml PRN PRN Administration RECONSTITUTION Sterile Water 1 ml 09/08/19 01:03 09/13/19 20:34 Bacteriostatic Water FS 1 ml PRN PRN Administration RECONSTITUTION - Exam General Appearance: ill appearing Eye: PERRL ENT: normocephalic atraumatic Neck: supple Heart: RRR, normal peripheral pulses Respiratory: CTAB, normal chest expansion Gastrointestinal: normal bowel sounds Neurological: no focal deficits Hosp A/P - Plan This is a 33 year old female who presented with rapidly progressive shortness of breath requiring intubation #Acute hypoxic respiratory failure secondary to sepsis from strep bacteremia and staph pneumonia Leukocytosis - blood cultures on admission showed 2/2 strep. Sputum culture growing staph aureus MSSA. - s/p IV ceftriaxone, switched to vanc and meropenem 09/13 due to persistent resp failure. - IV fluconazole. - CT chest shows multifocal pneumonia----------> COVID neg. - IV steroids high dose started #Acute kidney Injury likely from Lupus Nephritis vs RPGN vs post strep GN -on HD - bird sitter for further mgmt of lupus nephritis. Thrombocytopenia - platelet count 141 Anemia - Hb up to 10, s/p 3 units pRBC Hyponatremia - sodium 132, continue with dialysis Physical deconditioning - PT evaluation Acute encephalopathy - resolved Code status: full code
[2019-09-19] MEDS: hydrALAZINE 20 MG/ML VIAL SLOW IVP PRN (22:03)
[2019-09-20] MEDS: Acetaminophen 325 MG TAB PO PRN ×2 (03:17→09:03)
[2019-09-20 04:34] LABS: Band 7 % (5-11); Hemoglobin 10.2 g/dL (12.0-16.0); MDiff Complete? YES; Mean Corpuscular HGB CONC 32.1 g/dL (32.0-36.0); Mean Corpuscular Hemoglobin 28.8 pg (27.0-31.0); Mean Corpuscular Volume 89.6 fL (78.0-98.0); Mean Platelet Volume 10.8 fL (7.4-10.4); Monocytes 3 % (0-10); Neutrophil 90 % (42-75); Platelet Count 157 thou/uL (130-400); Platelet Morphology Comment Appears Adequate; RBC Distribution Width 16.6 % (11.5-14.5); Red Blood Cell (RBC) Count 3.54 mill/uL (4.20-5.40); White Blood Cell (WBC) Count 26.3 thou/uL (4.8-10.8)
[2019-09-20 04:42] LABS: Anion Gap 22 mmol/L (10-20); BUN (Urea Nitrogen) 96 mg/dL (7.0-18.7); Calc. Creatinine Clearance 23 mL/min (70-130); Calcium 7.7 mg/dL (7.8-10.44); Carbon Dioxide 18 mmol/L (22-29); Chloride 99 mmol/L (98-107); Estimated GFR-MDRD 12; Glucose 130 mg/dL (70-105); Sodium 134 mmol/L (136-145)
[2019-09-20] MEDS: methylPREDNISolone Sod Succ 40 MG VIAL IVP SCH ×4 (06:19→23:16)
[2019-09-20] MEDS: Pantoprazole 40 MG VIAL IVP SCH (09:03)
[2019-09-20 10:19] LABS: Vancomycin, Random 26.8 ug/mL (See Comment)
--- NOTE | 2019-09-20 11:34 | PRG ---
DATE OF SERVICE: 09/20/2019 SUBJECTIVE: Lorena feels better. She is still having some joint pain, particularly at night. OBJECTIVE: VITAL SIGNS: Temperature 97.7, pulse 78, respirations 16, O2 saturation 100% on 2 L, blood pressure 169/88. HEENT: Clear. NECK: No adenopathy or JVD. LUNGS: Clear anteriorly. CARDIAC: S1, S2. Regular. ABDOMEN: Soft. EXTREMITIES: No edema. LABORATORY DATA: White blood cell count 26.3, hematocrit 31.8, and platelet count 157. Sodium 134, potassium 5, chloride 99, CO2 of 18, BUN 96, creatinine 5.1, glucose 130. ASSESSMENT: 1. Systemic lupus erythematosus. 2. Lupus nephritis. 3. Pneumococcal sepsis with multiple organ dysfunction. 4. Status post respiratory failure requiring mechanical ventilation. PLAN: 1. The patient will continue antibiotics in the direction of Dr. Mckenna. She is currently on continued IV methylprednisolone, but at a lower dose. 2. She is complaining of pain, so we will give her some Tylenol No. 3, that she can take at night before she goes to sleep. Job ID: [id number]
[2019-09-20] MEDS: Fluconazole In NaCl,Iso-Osm 100 MG in Admixture Fee 1 EACH IVPB SCH (12:28)
[2019-09-20] MEDS: Meropenem 500 MG in Sodium Chloride 0.9% 100 ML IVPB SCH (12:35)
[2019-09-20] MEDS: Acetaminophen/Codeine 30-300mg Tablet PO PRN ×2 (14:44→21:04)
--- NOTE | 2019-09-20 16:01 | PDOC.HOSPP ---
- Subjective Encounter Date: 09/20/19 Encounter Time: 15:00 Subjective: pt able to say few words, pain, iV pump is off. wbcs high, on steroid. transferred to the floor. - Objective Vital Signs & Weight: Vital Signs (12 hours) Temp Pulse Pulse Pulse Resp BP BP 09/20/19 14:15 88 18 09/20/19 12:20 97.7 F 88 20 09/20/19 10:45 78 16 09/20/19 09:58 89 93 169/94 H 165/96 H 09/20/19 07:30 09/20/19 07:25 97.7 F 87 18 09/20/19 06:45 82 16 BP Pulse Ox 09/20/19 14:15 09/20/19 12:20 166/96 H 99 09/20/19 10:45 09/20/19 09:58 09/20/19 07:30 100 09/20/19 07:25 169/88 H 94 L 09/20/19 06:45 Weight Admit Weight 213 lb Weight 197 lb 6.4 oz Most Recent Monitor Data Heart Rate from ECG 106 NIBP 145/110 NIBP BP-Mean 121 Respiration from ECG 20 SpO2 97 I&O: 09/19/19 09/20/19 09/21/19 06:59 06:59 06:59 Intake Total 748 767 497 Output Total 0 0 Balance 748 767 497 Result Diagrams: 09/20/19 03:21 09/20/19 03:21 Hospitalist ROS - Medication Medications: Active Medications Generic Name Dose Route Start Last Admin Trade Name Freq PRN Reason Stop Dose Admin Acetaminophen 650 mg 09/18/19 13:06 09/18/19 14:40 Tylenol [place] 650 mg Q4H PRN Administration Headache/Fever or Pain Acetaminophen 650 mg 09/18/19 13:07 09/20/19 09:03 Tylenol PO 650 mg Q4H PRN Administration Headache/Fever/Mild Pain (1-3) Acetaminophen/Codeine Phosphate 2 tab 09/20/19 11:15 09/20/19 14:44 Tylenol #3 PO 2 tab Q6H PRN Administration Pain Albuterol/Ipratropium 3 ml 09/11/19 22:30 09/20/19 14:15 Duoneb NEB 3 ml [id number] GIA Administration Hydralazine HCl 10 mg 09/15/19 12:00 09/19/19 22:03 Apresoline SLOW IVP 10 mg Q4H PRN Administration SBP Greater Than 170 Meropenem 500 mg/ Sodium 100 mls @ 200 mls/hr 09/14/19 12:00 09/20/19 12:35 Chloride IVPB 100 mls Q24HR GIA Administration Vancomycin HCl 750 mg/ Sodium 250 mls @ 250 mls/hr 09/14/19 10:15 09/19/19 11 :28 Chloride IVPB 250 mls WILLCALL GIA Administration Vancomycin HCl 500 mg/ Sodium 100 mls @ 100 mls/hr 09/14/19 10:15 09/17/19 15 :20 Chloride IVPB 100 mls WILLCALL GIA Administration Fluconazole/Sodium Chloride 50 mls @ 100 mls/hr 09/15/19 11:00 09/20/19 12:28 100 mg/ Miscellaneous IVPB 50 mls Medication 1100 GIA Administration Methylprednisolone Sodium Succinate 40 mg 09/20/19 06:00 09/20/19 12:28 Solu-Medrol IVP 40 mg Q6HR GIA Administration Pantoprazole Sodium 40 mg 09/11/19 09:00 09/20/19 09:03 Protonix IVP 40 mg DAILY GIA Administration Sodium Chloride 10 ml 09/08/19 09:00 09/20/19 09:05 Flush - Normal Saline IVF 10 ml Q12HR GIA Administration Sodium Chloride 10 ml 09/11/19 08:54 09/19/19 09:37 Normal Saline Pf FS 10 ml PRN PRN Administration RECONSTITUTION Sterile Water 1 ml 09/08/19 01:03 09/13/19 20:34 Bacteriostatic Water FS 1 ml PRN PRN Administration RECONSTITUTION - Exam General Appearance: NAD, awake alert, ill appearing Eye: PERRL ENT: normocephalic atraumatic Neck: supple Heart: RRR, normal peripheral pulses Respiratory: CTAB, normal chest expansion Gastrointestinal: normal bowel sounds Neurological: no focal deficits Psychiatric: A&O x 3 Hosp A/P - Plan This is a 33 year old female who presented with rapidly progressive shortness of breath requiring intubation SLE Lupus nephritis strep bacteremia #Acute hypoxic respiratory failure secondary to sepsis from strep bacteremia and staph pneumonia Leukocytosis-------> both by bacteremia and steroid induced - blood cultures on admission showed 2/2 strep. Sputum culture growing staph aureus MSSA. - s/p IV ceftriaxone, switched to vanc and meropenem 09/13 due to persistent resp failure. - IV fluconazole. - CT chest shows multifocal pneumonia----------> COVID neg. - IV steroids --40mg q6 #Acute kidney Injury likely from Lupus Nephritis vs RPGN vs post strep GN -on HD - fw flight mechanic for further mgmt of lupus nephritis. Thrombocytopenia - platelet count 141 Anemia - Hb up to 10, s/p 3 units pRBC Hyponatremia - sodium 132, continue with dialysis Physical deconditioning - PT evaluation Acute encephalopathy - resolved Code status: full code
[2019-09-20] MEDS: hydrALAZINE 25 MG TAB PO SCH (20:48)
[2019-09-21] MEDS: methylPREDNISolone Sod Succ 40 MG VIAL IVP SCH (05:19)
[2019-09-21 06:06] LABS: Band 3 % (5-11); Hemoglobin 10.1 g/dL (12.0-16.0); Hypochromia SLIGHT = 6-15 cells (100X) (0-5/hpf); Lymphocytes 6 % (21-51); MDiff Complete? YES; Mean Corpuscular Hemoglobin 28.8 pg (27.0-31.0); Mean Platelet Volume 11.8 fL (7.4-10.4); Monocytes 4 % (0-10); Neutrophil 87 % (42-75); Platelet Count 133 thou/uL (130-400); Platelet Morphology Comment Appears Adequate; RBC Distribution Width 16.3 % (11.5-14.5); Red Blood Cell (RBC) Count 3.51 mill/uL (4.20-5.40)
[2019-09-21 06:24] LABS: Anion Gap 22 mmol/L (10-20); BUN (Urea Nitrogen) 126 mg/dL (7.0-18.7); Calc. Creatinine Clearance 18 mL/min (70-130); Calcium 7.4 mg/dL (7.8-10.44); Carbon Dioxide 19 mmol/L (22-29); Chloride 98 mmol/L (98-107); Estimated GFR-MDRD 9; Glucose 134 mg/dL (70-105); Potassium 5.2 mmol/L (3.5-5.1); Sodium 134 mmol/L (136-145)
[2019-09-21] MEDS: hydrALAZINE 25 MG TAB PO SCH ×3 (08:07→20:03)
[2019-09-21] MEDS: Acetaminophen/Codeine 30-300mg Tablet PO PRN (08:07)
[2019-09-21] MEDS: Pantoprazole 40 MG VIAL IVP SCH (08:08)
[2019-09-21] MEDS ORDERED: Heparin 10,000 UNITS/ 10 ML VIAL ONE (09:23)
--- NOTE | 2019-09-21 10:40 | PRG ---
DATE OF SERVICE: 09/21/2019 SUBJECTIVE: The patient was seen in dialysis this morning, seems to be doing reasonably well, had no acute complaints. OBJECTIVE: VITAL SIGNS: Temperature 98.4, pulse 70, blood pressure 165/101, O2 saturation 100% on 2 L. HEENT: Unremarkable. NECK: No JVD. CHEST: Clear anteriorly. CARDIAC: S1 and S2. Regular. ABDOMEN: Soft. EXTREMITIES: No edema. LABORATORY DATA: White blood cell count 19, hematocrit 31.6, and platelet count 133. Sodium 134, potassium 5.2, BUN 126, creatinine 6.5. ASSESSMENT: 1. Lupus with nephritis. 2. Pneumococcal sepsis with multiorgan dysfunction. 3. Status post respiratory failure requiring mechanical ventilation. PLAN: The patient is continuing therapy with antibiotics, steroids, and dialysis. We will follow. Job ID: [id number]
--- NOTE | 2019-09-21 11:40 | PRG ---
DATE OF SERVICE: 09/21/2019 SUBJECTIVE: The patient was seen and examined. Still with voice. No documented evidence of urine output though patient claims to have urinated last night. OBJECTIVE: VITAL SIGNS: Afebrile, temperature 98.4, pulse 78, blood pressure 165/101, respiratory rate of 20, O2 saturation of 100% on 2 L. HEENT: Unremarkable. CARDIOVASCULAR: First and second heart sounds were heard. RESPIRATORY: Clear to auscultation. DIGESTIVE SYSTEM: Revealed a benign abdomen. EXTREMITIES: No peripheral edema. SKIN: No new gross rash. LYMPHATICS: No peripheral lymphadenopathy. LABORATORY INVESTIGATION: Showed a sodium of 134, potassium 5.2, BUN of 126, creatinine of 6.52, bicarb of 19. Anion gap [place] 22. [place] [address] and a hemoglobin of 10.1. IMPRESSION: 1. 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 Possibilities include post Strep/Staph glomerulonephritis versus lupus nephritis or possibly crescentic glomerulonephritis. 2. Anemia, on erythropoiesis stimulating agent, status post multiple units of blood transfusions. 3. Cardiopulmonary failure, off ventilator. 4. Hypertension. PLAN: 1. The patient to undergo dialysis and from now onwards will remain on Saturday, Saturday, Saturday dialysis pending significant evidence of renal recovery. 2. Case Management consult to help in coordination of outpatient dialysis placement. 3. Avoid potentially nephrotoxic agents potential for renal recovery. 4. Further management to be dependent on the clinical course. Job ID: [id number]
--- NOTE | 2019-09-21 13:12 | PDOC.HOSPP ---
- Subjective Encounter Date: 09/21/19 Encounter Time: 11:00 Subjective: seen her in HD area. slightly appears better, communicating. wcs trending down. - Objective Vital Signs & Weight: Vital Signs (12 hours) Temp Pulse Resp BP BP Pulse Ox 09/21/19 08:07 78 165/101 H 09/21/19 08:04 97.7 F 78 16 165/101 H 99 09/21/19 08:00 99 09/21/19 06:50 77 20 100 09/21/19 04:00 98.4 F 87 18 168/113 H 99 09/21/19 02:38 98 Weight Admit Weight 213 lb 13.574 oz Weight 198 lb 3.2 oz Most Recent Monitor Data Heart Rate from ECG 106 NIBP 145/110 NIBP BP-Mean 121 Respiration from ECG 20 SpO2 97 I&O: 09/20/19 09/21/19 09/22/19 06:59 06:59 06:59 Intake Total 767 1217 Output Total 0 Balance 767 1217 Result Diagrams: 09/21/19 05:25 09/21/19 05:25 Hospitalist ROS - Medication Medications: Active Medications Generic Name Dose Route Start Last Admin Trade Name Freq PRN Reason Stop Dose Admin Acetaminophen 650 mg 09/18/19 13:06 09/18/19 14:40 Tylenol [place] 650 mg Q4H PRN Administration Headache/Fever or Pain Acetaminophen 650 mg 09/18/19 13:07 09/20/19 09:03 Tylenol PO 650 mg Q4H PRN Administration Headache/Fever/Mild Pain (1-3) Acetaminophen/Codeine Phosphate 2 tab 09/20/19 11:15 09/21/19 08:07 Tylenol #3 PO 2 tab Q6H PRN Administration Pain Albuterol/Ipratropium 3 ml 09/11/19 22:30 09/21/19 10:36 Duoneb NEB Not Given [id number] GIA Hydralazine HCl 10 mg 09/15/19 12:00 09/19/19 22:03 Apresoline SLOW IVP 10 mg Q4H PRN Administration SBP Greater Than 170 Hydralazine HCl 37.5 mg 09/20/19 21:00 09/21/19 08:07 Apresoline PO 37.5 mg TID GIA Administration Pantoprazole Sodium 40 mg 09/11/19 09:00 09/21/19 08:08 Protonix IVP 40 mg DAILY GIA Administration Sodium Chloride 10 ml 09/08/19 09:00 09/21/19 08:08 Flush - Normal Saline IVF 10 ml Q12HR GIA Administration Sodium Chloride 10 ml 09/09/19 07:59 09/21/19 05:20 Flush - Normal Saline IVF 10 ml PRN PRN Administration Saline Flush Sodium Chloride 10 ml 09/11/19 08:54 09/19/19 09:37 Normal Saline Pf FS 10 ml PRN PRN Administration RECONSTITUTION Sterile Water 1 ml 09/08/19 01:03 09/13/19 20:34 Bacteriostatic Water FS 1 ml PRN PRN Administration RECONSTITUTION - Exam General Appearance: NAD, awake alert, ill appearing Eye: PERRL ENT: normocephalic atraumatic Neck: supple, no lymphadenopathy Heart: RRR, normal peripheral pulses Respiratory: CTAB, normal chest expansion Gastrointestinal: soft, non-tender, non-distended, normal bowel sounds Neurological: no focal deficits, no new deficit Psychiatric: A&O x 3 Hosp A/P - Plan This is a 33 year old female who presented with rapidly progressive shortness of breath requiring intubation SLE Lupus nephritis strep bacteremia #Acute hypoxic respiratory failure secondary to sepsis from strep bacteremia and staph pneumonia Leukocytosis-------> both by bacteremia and steroid induced - blood cultures on admission showed 2/2 strep. Sputum culture growing staph aureus MSSA. - s/p IV ceftriaxone, switched to vanc and meropenem 09/13 due to persistent resp failure. - IV fluconazole. - CT chest shows multifocal pneumonia----------> COVID neg. - IV steroids --40mg q6 #Acute kidney Injury likely from Lupus Nephritis vs RPGN vs post strep GN -on HD - fw education manager for further mgmt of lupus nephritis. Thrombocytopenia - platelet count 141 Anemia - Hb up to 10, s/p 3 units pRBC Hyponatremia - sodium 132, continue with dialysis Physical deconditioning - PT evaluation Acute encephalopathy - resolved Code status: full code 1st - on IV steroid for the last few days - talk to renal -will check w.. filament cutter to switch to PO and clearance for dc from his side. --IV ppi to PO --plan for outpt HD chair arrangement.
[2019-09-21] MEDS: Fluconazole In NaCl,Iso-Osm 100 MG in Admixture Fee 1 EACH IVPB SCH (13:44)
[2019-09-21] MEDS: Meropenem 500 MG in Sodium Chloride 0.9% 100 ML IVPB SCH (13:44)
[2019-09-21] MEDS ORDERED: methylPREDNISolone Sod Succ 40 MG VIAL IVP SCH (14:00)
[2019-09-21] MEDS: cefTRIAXone\\ROCEPHIN 2 GM in Sodium Chloride 0.9% 100 ML IVPB SCH (15:00)
[2019-09-21] MEDS: predniSONE 20 MG TAB PO SCH ×2 (15:01→20:05)
[2019-09-21] MEDS: Hydroxychloroquine Sulfate 200 MG TAB PO SCH (20:05)
[2019-09-22 05:56] LABS: Mean Corpuscular HGB CONC 31.5 g/dL (32.0-36.0); Mean Corpuscular Hemoglobin 27.9 pg (27.0-31.0); Mean Corpuscular Volume 88.5 fL (78.0-98.0); Mean Platelet Volume 11.7 fL (7.4-10.4); Platelet Count 128 thou/uL (130-400); RBC Distribution Width 16.5 % (11.5-14.5); Red Blood Cell (RBC) Count 3.57 mill/uL (4.20-5.40); White Blood Cell (WBC) Count 15.4 thou/uL (4.8-10.8)
[2019-09-22 05:57] LABS: Band 3 % (5-11); Lymphocytes 10 % (21-51); MDiff Complete? YES; Monocytes 8 % (0-10); Neutrophil 79 % (42-75); Nucleated RBC 1 % (0); Platelet Morphology Comment Appears Adequate
[2019-09-22 06:02] LABS: Anion Gap 19 mmol/L (10-20); BUN (Urea Nitrogen) 90 mg/dL (7.0-18.7); Calc. Creatinine Clearance 21 mL/min (70-130); Carbon Dioxide 25 mmol/L (22-29); Chloride 94 mmol/L (98-107); Estimated GFR-MDRD 12; Glucose 106 mg/dL (70-105); Potassium 5.1 mmol/L (3.5-5.1); Sodium 133 mmol/L (136-145)
[2019-09-22] MEDS: Hydroxychloroquine Sulfate 200 MG TAB PO SCH ×2 (08:25→20:35)
[2019-09-22] MEDS: hydrALAZINE 25 MG TAB PO SCH ×3 (08:26→20:35)
[2019-09-22] MEDS: predniSONE 20 MG TAB PO SCH ×3 (08:27→20:34)
[2019-09-22] MEDS: Folic Acid 1 MG TAB PO SCH (08:27)
[2019-09-22] MEDS: Acetaminophen/Codeine 30-300mg Tablet PO PRN (08:30)
[2019-09-22 10:06] LABS: DRVVT Confirm 34.2; DRVVT Ratio 1.3 Ratio (1.2 or Less)
--- NOTE | 2019-09-22 12:07 | PDOC.HOSPP ---
- Subjective Encounter Date: 09/22/19 Encounter Time: 09:40 Subjective: Mom at bedside; care plan discussed in detail. talk to associate professor of violin as well, who recommends kidney bx prior to dc. pt doing well, had her breakfast. - Objective Vital Signs & Weight: Vital Signs (12 hours) Temp Pulse Resp BP BP Pulse Ox 09/22/19 11:46 98.2 F 96 18 158/101 H 96 09/22/19 10:46 78 20 100 09/22/19 08:30 98 09/22/19 08:26 99 142/83 H 09/22/19 07:58 98.4 F 99 17 142/83 H 98 09/22/19 06:52 93 L 09/22/19 06:50 92 16 93 L 09/22/19 03:53 97.8 F 96 16 138/86 95 09/22/19 02:29 18 Weight Admit Weight 213 lb 13.574 oz Weight 188 lb 11.2 oz Most Recent Monitor Data Heart Rate from ECG 106 NIBP 145/110 NIBP BP-Mean 121 Respiration from ECG 20 SpO2 97 I&O: 09/21/19 09/22/19 09/23/19 06:59 06:59 06:59 Intake Total 1217 1080 Balance 1217 1080 Result Diagrams: 09/22/19 04:30 09/22/19 04:30 Hospitalist ROS - Medication Medications: Active Medications Generic Name Dose Route Start Last Admin Trade Name Freq PRN Reason Stop Dose Admin Acetaminophen 650 mg 09/18/19 13:06 09/18/19 14:40 Tylenol [place] 650 mg Q4H PRN Administration Headache/Fever or Pain Acetaminophen 650 mg 09/18/19 13:07 09/20/19 09:03 Tylenol PO 650 mg Q4H PRN Administration Headache/Fever/Mild Pain (1-3) Acetaminophen/Codeine Phosphate 2 tab 09/20/19 11:15 09/22/19 08:30 Tylenol #3 PO 2 tab Q6H PRN Administration Mild-Moderate Pain (1-5) Albuterol/Ipratropium 3 ml 09/11/19 22:30 09/22/19 10:46 Duoneb NEB 3 ml [id number] GIA Administration Folic Acid 1 mg 09/22/19 09:00 09/22/19 08:27 Folvite PO 1 mg DAILY GIA Administration Hydralazine HCl 10 mg 09/15/19 12:00 09/19/19 22:03 Apresoline SLOW IVP 10 mg Q4H PRN Administration SBP Greater Than 170 Hydralazine HCl 37.5 mg 09/20/19 21:00 09/22/19 08:26 Apresoline PO 37.5 mg TID GIA Administration Hydroxychloroquine Sulfate 200 mg 09/21/19 21:00 09/22/19 08:25 Plaquenil PO 200 mg BID GIA Administration Ceftriaxone Sodium 2 gm/ 100 mls @ 200 mls/hr 09/21/19 13:00 09/21/19 15:00 Sodium Chloride IVPB 100 mls 1300 GIA Administration Pantoprazole Sodium 40 mg 09/22/19 09:00 09/22/19 08:26 Protonix PO 40 mg DAILY GIA Administration Prednisone 40 mg 09/21/19 15:00 09/22/19 08:27 Prednisone PO 40 mg TID GIA Administration Sodium Chloride 10 ml 09/08/19 09:00 09/22/19 08:27 Flush - Normal Saline IVF 10 ml Q12HR GIA Administration Sodium Chloride 10 ml 09/09/19 07:59 09/21/19 05:20 Flush - Normal Saline IVF 10 ml PRN PRN Administration Saline Flush Sodium Chloride 10 ml 09/11/19 08:54 09/19/19 09:37 Normal Saline Pf FS 10 ml PRN PRN Administration RECONSTITUTION Sterile Water 1 ml 09/08/19 01:03 09/13/19 20:34 Bacteriostatic Water FS 1 ml PRN PRN Administration RECONSTITUTION - Exam General Appearance: NAD, awake alert Eye: PERRL ENT: normocephalic atraumatic Neck: supple Heart: RRR, normal peripheral pulses Respiratory: CTAB, normal chest expansion, no tachypnea, rales Gastrointestinal: soft, normal bowel sounds Neurological: no focal deficits Psychiatric: A&O x 3 Hosp A/P - Plan This is a 33 year old female who presented with rapidly progressive shortness of breath requiring intubation SLE Lupus nephritis strep bacteremia #Acute hypoxic respiratory failure secondary to sepsis from strep bacteremia and staph pneumonia Leukocytosis-------> both by bacteremia and steroid induced - blood cultures on admission showed 2/2 strep. Sputum culture growing staph aureus MSSA. - s/p IV ceftriaxone, switched to vanc and meropenem 09/13 due to persistent resp failure. - IV fluconazole. - CT chest shows multifocal pneumonia----------> COVID neg. - IV steroids --40mg q6 #Acute kidney Injury likely from Lupus Nephritis vs RPGN vs post strep GN -on HD - fw machine veneer repairer for further mgmt of lupus nephritis. Thrombocytopenia - platelet count 141 Anemia - Hb up to 10, s/p 3 units pRBC Hyponatremia - sodium 132, continue with dialysis Physical deconditioning - PT evaluation Acute encephalopathy - resolved Code status: full code 1st - on IV steroid for the last few days - talk to renal -will check w.. associate professor of violin to switch to PO and clearance for dc from his side. --IV ppi to PO --plan for outpt HD chair arrangement. 2nd - Dr. Bailey wants pt for follow w.,.Dr. Celaya at [facility] and recommends kidney bx prior to dc. - will talk to [place] -- will c/s IR - will talk to ID on abx duration -on Prednisone adn plaguenil. --talk to Dr. Swift and will arrange for bx -NPO when they are ready to do bx.
[2019-09-22] MEDS: cefTRIAXone\\ROCEPHIN 2 GM in Sodium Chloride 0.9% 100 ML IVPB SCH (12:18)
[2019-09-22 17:27] LABS: Cardiolipin IgA Ab 3.9 APL-U/mL (<14 Negative); EliA APS New Method **** NEW METHOD ****; beta-2-Glycoprotein I IgA Ab 4.2 U/mL (<7 Negative); beta-2-Glycoprotein I IgG Ab 2.5 U/mL (<7 Negative); beta-2-Glycoprotein I IgM Abs Less than 2.9 U/mL (<7 Negative)
--- NOTE | 2019-09-22 20:31 | PRG ---
DATE OF SERVICE: 09/22/2019 SUBJECTIVE: Ms. Barlow looks great compared to last week. She is stronger. She has not stood for long yet. OBJECTIVE: VITAL SIGNS: She is afebrile. Heart rate 85, respiratory rate 14, oximetry is 96 on room air, blood pressure is 165/95 earlier. LUNGS: Remarkable for decreased breath sounds at the right base. HEART: Regular rhythm. ABDOMEN: Soft. IMPRESSION: 1. Pneumococcal pneumonia with sepsis, clinically resolving. 2. Critical illness myopathy. 3. Lupus with an early nephritis, status post 3 g of Solu-Medrol over 3 days. 4. Anemia of chronic disease. 5. Acute renal failure secondary to sepsis. PLAN: Continue supportive care with placement in rehab when a bed becomes available. Job ID: [id number]
[2019-09-23] MEDS: predniSONE 20 MG TAB PO SCH ×3 (10:10→20:55)
[2019-09-23] MEDS: hydrALAZINE 25 MG TAB PO SCH ×3 (10:10→20:54)
[2019-09-23 11:17] LABS: Mean Corpuscular HGB CONC 32.8 g/dL (32.0-36.0); Mean Corpuscular Hemoglobin 29.1 pg (27.0-31.0); Mean Corpuscular Volume 88.8 fL (78.0-98.0); Mean Platelet Volume 11.4 fL (7.4-10.4); Platelet Count 117 thou/uL (130-400); RBC Distribution Width 16.8 % (11.5-14.5); Red Blood Cell (RBC) Count 4.12 mill/uL (4.20-5.40); White Blood Cell (WBC) Count 18.8 thou/uL (4.8-10.8)
[2019-09-23 11:38] LABS: Anion Gap 21 mmol/L (10-20); BUN (Urea Nitrogen) 79 mg/dL (7.0-18.7); Calc. Creatinine Clearance 24 mL/min (70-130); Calcium 8.5 mg/dL (7.8-10.44); Carbon Dioxide 23 mmol/L (22-29); Chloride 92 mmol/L (98-107); Estimated GFR-MDRD 13; Glucose 104 mg/dL (70-105); Potassium 4.3 mmol/L (3.5-5.1); Sodium 132 mmol/L (136-145)
[2019-09-23 12:28] LABS: Lymphocytes 9 % (21-51); Monocytes 6 % (0-10); Neutrophil 83 % (42-75)
[2019-09-23 12:29] LABS: Band 2 % (5-11); MDiff Complete? YES; Platelet Morphology Comment Appears Decreased; Polychromasia SLIGHT = 2-3 cells (100X) (0-2/hpf)
[2019-09-23] MEDS: Folic Acid 1 MG TAB PO SCH (13:30)
[2019-09-23] MEDS: cefTRIAXone\\ROCEPHIN 2 GM in Sodium Chloride 0.9% 100 ML IVPB SCH (13:30)
[2019-09-23] MEDS: Hydroxychloroquine Sulfate 200 MG TAB PO SCH ×2 (13:30→20:54)
[2019-09-23] MEDS ORDERED: Heparin 10,000 UNITS/ 10 ML VIAL ONE (14:00)
[2019-09-23] MEDS ORDERED: Lorazepam 2 MG/ML VIAL SLOW IVP SCH (14:15)
--- NOTE | 2019-09-23 14:22 | PDOC.HOSPP ---
- Subjective Encounter Date: 09/23/19 Encounter Time: 11:20 Subjective: pt resting - came from HD. plan for kidney bx tomorrow, keep her NPO. explained at length, why she needs biopsy. pt is agreeable to give the consent, also ativan low dose for anxiety at the time of biopsy. pt on tylenol 3. - Objective Vital Signs & Weight: Vital Signs (12 hours) Temp Pulse Resp BP Pulse Ox 09/23/19 14:00 85 14 96 09/23/19 13:27 97.8 F 90 16 120/74 94 L 09/23/19 07:33 97.5 F L 83 16 172/106 H 95 09/23/19 07:09 75 18 100 09/23/19 03:00 98.2 F 85 18 163/97 H 95 Weight Admit Weight 213 lb 13.574 oz Weight 192 lb 12.8 oz Most Recent Monitor Data Heart Rate from ECG 106 NIBP 145/110 NIBP BP-Mean 121 Respiration from ECG 20 SpO2 97 I&O: 09/22/19 09/23/19 09/24/19 06:59 06:59 06:59 Intake Total 1080 900 Balance 1080 900 Result Diagrams: 09/23/19 11:00 09/23/19 11:00 Hospitalist ROS - Medication Medications: Active Medications Generic Name Dose Route Start Last Admin Trade Name Freq PRN Reason Stop Dose Admin Acetaminophen 650 mg 09/18/19 13:06 09/18/19 14:40 Tylenol [place] 650 mg Q4H PRN Administration Headache/Fever or Pain Acetaminophen 650 mg 09/18/19 13:07 09/20/19 09:03 Tylenol PO 650 mg Q4H PRN Administration Headache/Fever/Mild Pain (1-3) Acetaminophen/Codeine Phosphate 2 tab 09/20/19 11:15 09/22/19 08:30 Tylenol #3 PO 2 tab Q6H PRN Administration Mild-Moderate Pain (1-5) Albuterol/Ipratropium 3 ml 09/11/19 22:30 09/23/19 14:00 Duoneb NEB 3 ml [id number] GIA Administration Folic Acid 1 mg 09/22/19 09:00 09/23/19 13:30 Folvite PO 1 mg DAILY GIA Administration Hydralazine HCl 10 mg 09/15/19 12:00 09/19/19 22:03 Apresoline SLOW IVP 10 mg Q4H PRN Administration SBP Greater Than 170 Hydralazine HCl 37.5 mg 09/20/19 21:00 09/23/19 10:10 Apresoline PO Not Given TID GIA Hydroxychloroquine Sulfate 200 mg 09/21/19 21:00 09/23/19 13:30 Plaquenil PO 200 mg BID GIA Administration Ceftriaxone Sodium 2 gm/ 100 mls @ 200 mls/hr 09/21/19 13:00 09/23/19 13:30 Sodium Chloride IVPB 100 mls 1300 GIA Administration Pantoprazole Sodium 40 mg 09/22/19 09:00 09/23/19 13:30 Protonix PO 40 mg DAILY GIA Administration Prednisone 40 mg 09/21/19 15:00 09/23/19 10:10 Prednisone PO Not Given TID GIA Sodium Chloride 10 ml 09/08/19 09:00 09/23/19 13:30 Flush - Normal Saline IVF 10 ml Q12HR GIA Administration Sodium Chloride 10 ml 09/09/19 07:59 09/21/19 05:20 Flush - Normal Saline IVF 10 ml PRN PRN Administration Saline Flush Sodium Chloride 10 ml 09/11/19 08:54 09/19/19 09:37 Normal Saline Pf FS 10 ml PRN PRN Administration RECONSTITUTION Sterile Water 1 ml 09/08/19 01:03 09/13/19 20:34 Bacteriostatic Water FS 1 ml PRN PRN Administration RECONSTITUTION - Exam General Appearance: ill appearing Eye: PERRL ENT: normocephalic atraumatic Neck: supple Heart: RRR Respiratory: CTAB Gastrointestinal: normal bowel sounds Neurological: no focal deficits Psychiatric: normal affect, normal behavior, A&O x 3 Hosp A/P - Plan This is a 33 year old female who presented with rapidly progressive shortness of breath requiring intubation SLE prob Lupus nephritis Hypocomplementemia [high ds-ADRIANNA, SmM ab high titre. strep bacteremia #Acute hypoxic respiratory failure secondary to sepsis from strep bacteremia and staph pneumonia Leukocytosis-------> both by bacteremia and steroid induced - blood cultures on admission showed 2/2 strep. Sputum culture growing staph aureus MSSA. - s/p IV ceftriaxone, switched to vanc and meropenem 09/13 due to persistent resp failure. - IV fluconazole. - CT chest shows multifocal pneumonia----------> COVID neg. - IV steroids --40mg q6 #Acute kidney Injury likely from Lupus Nephritis vs RPGN vs post strep GN -on HD - fw application systems engineer for further mgmt of lupus nephritis. Thrombocytopenia - platelet count 141 Anemia - Hb up to 10, s/p 3 units pRBC Hyponatremia - sodium 132, continue with dialysis Physical deconditioning - PT evaluation Acute encephalopathy - resolved Code status: full code 1st - on IV steroid for the last few days - talk to renal -will check w.. professor of mathematics to switch to PO and clearance for dc from his side. --IV ppi to PO --plan for outpt HD chair arrangement. 2nd - Dr. Bailey wants pt for follow w.,.Dr. Celaya at [facility] and recommends kidney bx prior to dc. - will talk to [place] -- will c/s IR - will talk to ID on abx duration -on Prednisone adn plaguenil. --talk to Dr. Swift and will arrange for bx -NPO when they are ready to do bx. 3rd -Keep her NPO for am kidney bx--explained to the pt in details, pros/cons and risks of procedure etc.. -dc iv abx and PO abx - as she is tolerating PO intake -will fw with nan result - we have to check with Nocturnist Physician, tapering of steroid dose, upon dc.
[2019-09-23 14:28] LABS: HBSAg Index 0.16 S/CO (0-0.99); Hep B Core Total Ab Non-Reactive (NonReactive); Hep B Core Total Index 0.33 S/CO (0-0.79); Hep B Surf Ag Non-Reactive S/CO (NonReactive)
[2019-09-23 14:49] LABS: Hep C IgG Ab Reflex HepC Qnt (NonReactive); Hep C Index 4.59 S/CO (0-0.79)
[2019-09-23] MEDS: Acetaminophen/Codeine 30-300mg Tablet PO PRN (15:25)
[2019-09-23 15:29] LABS: HBSAB Concentration 6.01 mIU/mL; Hep B Surf AB NonReactive (NonReactive)
--- NOTE | 2019-09-23 15:43 | PRG ---
DATE OF SERVICE: 09/23/2019 SUBJECTIVE: Lorena Barlow is tolerating dialysis today. OBJECTIVE: VITAL SIGNS: She is afebrile. Heart rate 70, respiratory rate 16, oximetry is 94% to 96% on room air, blood pressure 120/70. LUNGS: Unchanged. HEART: Unchanged. ABDOMEN: Unchanged. IMPRESSION: 1. Pneumococcal sepsis with acute renal failure. 2. Underlying lupus. 3. Lupus nephritis status post high-dose steroid treatment. PLAN: Physical therapy and placement. Job ID: [id number]
[2019-09-23] MEDS ORDERED: Tuberculin PPD 0.1 ML VIAL I-DERMAL SCH (18:00)
[2019-09-24 04:52] LABS: Band 3 % (5-11); Hemoglobin 9.9 g/dL (12.0-16.0); Lymphocytes 4 % (21-51); MDiff Complete? YES; Mean Corpuscular HGB CONC 34.4 g/dL (32.0-36.0); Mean Corpuscular Hemoglobin 30.6 pg (27.0-31.0); Mean Platelet Volume 12.2 fL (7.4-10.4); Monocytes 8 % (0-10); Neutrophil 85 % (42-75); Platelet Count 88 thou/uL (130-400); Platelet Morphology Comment Appears Decreased; RBC Distribution Width 16.4 % (11.5-14.5); Red Blood Cell (RBC) Count 3.22 mill/uL (4.20-5.40); White Blood Cell (WBC) Count 13.1 thou/uL (4.8-10.8)
[2019-09-24 04:59] LABS: Anion Gap 21 mmol/L (10-20); BUN (Urea Nitrogen) 101 mg/dL (7.0-18.7); Calc. Creatinine Clearance 18 mL/min (70-130); Calcium 7.9 mg/dL (7.8-10.44); Carbon Dioxide 23 mmol/L (22-29); Chloride 92 mmol/L (98-107); Estimated GFR-MDRD 10; Glucose 99 mg/dL (70-105); Potassium 5.8 mmol/L (3.5-5.1); Sodium 130 mmol/L (136-145)
[2019-09-24] MEDS: hydrALAZINE 25 MG TAB PO SCH ×3 (07:06→20:27)
[2019-09-24] MEDS: Folic Acid 1 MG TAB PO SCH (07:07)
[2019-09-24] MEDS: predniSONE 20 MG TAB PO SCH ×2 (07:07→20:27)
[2019-09-24] MEDS: Hydroxychloroquine Sulfate 200 MG TAB PO SCH ×2 (07:07→20:28)
[2019-09-24] MEDS: Acetaminophen/Codeine 30-300mg Tablet PO PRN (12:59)
--- NOTE | 2019-09-24 14:29 | PDOC.HOSPP ---
- Subjective Encounter Date: 09/24/19 Encounter Time: 11:40 Subjective: she is sitting the chair, bx procedure not done today as plts counts borderline. likely tomorrow. - Objective Vital Signs & Weight: Vital Signs (12 hours) Temp Pulse Resp BP BP Pulse Ox 09/24/19 13:54 82 16 93 L 09/24/19 11:14 98.1 F 83 15 144/94 H 96 09/24/19 07:03 98.6 F 85 16 138/91 H 93 L 09/24/19 06:58 155/96 H 09/24/19 06:35 97 09/24/19 06:34 75 16 97 09/24/19 03:05 98.3 F 86 14 155/100 H 96 Weight Admit Weight 213 lb 13.574 oz Weight 192 lb 13.942 oz Most Recent Monitor Data Heart Rate from ECG 106 NIBP 145/110 NIBP BP-Mean 121 Respiration from ECG 20 SpO2 97 I&O: 09/23/19 09/24/19 09/25/19 06:59 06:59 06:59 Intake Total 900 640 Output Total 3000 Balance 900 -2360 Result Diagrams: 09/24/19 04:27 09/24/19 04:27 Hospitalist ROS - Medication Medications: Active Medications Generic Name Dose Route Start Last Admin Trade Name Freq PRN Reason Stop Dose Admin Acetaminophen 650 mg 09/18/19 13:06 09/18/19 14:40 Tylenol [place] 650 mg Q4H PRN Administration Headache/Fever or Pain Acetaminophen 650 mg 09/18/19 13:07 09/20/19 09:03 Tylenol PO 650 mg Q4H PRN Administration Headache/Fever/Mild Pain (1-3) Acetaminophen/Codeine Phosphate 2 tab 09/20/19 11:15 09/24/19 12:59 Tylenol #3 PO 2 tab Q6H PRN Administration Mild-Moderate Pain (1-5) Albuterol/Ipratropium 3 ml 09/11/19 22:30 09/24/19 13:54 Duoneb NEB 3 ml [id number] GIA Administration Folic Acid 1 mg 09/22/19 09:00 09/24/19 07:07 Folvite PO 1 mg DAILY GIA Administration Hydralazine HCl 10 mg 09/15/19 12:00 09/19/19 22:03 Apresoline SLOW IVP 10 mg Q4H PRN Administration SBP Greater Than 170 Hydralazine HCl 37.5 mg 09/20/19 21:00 09/24/19 07:06 Apresoline PO 37.5 mg TID GIA Administration Hydroxychloroquine Sulfate 200 mg 09/21/19 21:00 09/24/19 07:07 Plaquenil PO 200 mg BID GIA Administration Pantoprazole Sodium 40 mg 09/22/19 09:00 09/24/19 07:07 Protonix PO 40 mg DAILY GIA Administration Prednisone 40 mg 09/21/19 15:00 09/24/19 07:07 Prednisone PO 40 mg TID GIA Administration Sodium Chloride 10 ml 09/08/19 09:00 09/24/19 07:07 Flush - Normal Saline IVF 10 ml Q12HR GIA Administration Sodium Chloride 10 ml 09/09/19 07:59 09/21/19 05:20 Flush - Normal Saline IVF 10 ml PRN PRN Administration Saline Flush Sodium Chloride 10 ml 09/11/19 08:54 09/19/19 09:37 Normal Saline Pf FS 10 ml PRN PRN Administration RECONSTITUTION Sterile Water 1 ml 09/08/19 01:03 09/13/19 20:34 Bacteriostatic Water FS 1 ml PRN PRN Administration RECONSTITUTION - Exam General Appearance: NAD, awake alert Eye: PERRL ENT: normocephalic atraumatic Neck: supple Heart: RRR Respiratory: CTAB, normal chest expansion Gastrointestinal: soft, normal bowel sounds Neurological: no focal deficits Psychiatric: normal affect, normal behavior, A&O x 3 Hosp A/P - Plan This is a 33 year old female who presented with rapidly progressive shortness of breath requiring intubation SLE prob Lupus nephritis Hypocomplementemia [high ds-ADRIANNA, SmM ab high titre. strep bacteremia #Acute hypoxic respiratory failure secondary to sepsis from strep bacteremia and staph pneumonia Leukocytosis-------> both by bacteremia and steroid induced - blood cultures on admission showed 2/2 strep. Sputum culture growing staph aureus MSSA. - s/p IV ceftriaxone, switched to vanc and meropenem 09/13 due to persistent resp failure. - IV fluconazole. - CT chest shows multifocal pneumonia----------> COVID neg. - IV steroids --40mg q6 #Acute kidney Injury likely from Lupus Nephritis vs RPGN vs post strep GN -on HD - fw fisher dip net for further mgmt of lupus nephritis. Thrombocytopenia - platelet count 141 Anemia - Hb up to 10, s/p 3 units pRBC Hyponatremia - sodium 132, continue with dialysis Physical deconditioning - PT evaluation Acute encephalopathy - resolved Code status: full code 1st - on IV steroid for the last few days - talk to renal -will check w.. site superintendent to switch to PO and clearance for dc from his side. --IV ppi to PO --plan for outpt HD chair arrangement. 2nd - Dr. Bailey wants pt for follow w.,.Dr. Celaya at [facility], [place], operated by [facility] and recommends kidney bx prior to dc. - will talk to [place] -- will c/s IR - will talk to ID on abx duration -on Prednisone adn plaguenil. --talk to Dr. Swift and will arrange for bx -NPO when they are ready to do bx. 3rd -Keep her NPO for am kidney bx--explained to the pt in details, pros/cons and risks of procedure etc.. -dc iv abx and PO abx - as she is tolerating PO intake -will fw with nan result - we have to check with Welding Pantograph Machine Operator, tapering of steroid dose, upon dc. 4th - aborted kidney bx d/t borderline plts - IR wants to make sure plts >100K -hopefully it is in am. continue NPO m/n. -talk to site superintendent, -- she is on tid steroid over a week - swtiched to bid until seen by her site superintendent at [facility].luz. dr. Celaya.
--- NOTE | 2019-09-24 16:42 | PRG ---
DATE OF SERVICE: 09/24/2019 SUBJECTIVE: Lorena Barlow is doing well. She is still on room air. She has no complaints. OBJECTIVE: VITAL SIGNS: She is afebrile, heart rate is 92, respiratory rate 16, oximetry is 99% on room air, and blood pressure 143/95. LUNGS: Remarkable for decreased breath sounds at the right base. HEART: Regular rhythm. ABDOMEN: Soft. LABORATORY DATA: White count 13.1, hemoglobin 9.9, and platelets 88,000. Sodium 138, potassium 5.8, chloride 92, bicarb 23, BUN 101, and creatinine 6.13. IMPRESSION: 1. Respiratory failure associated with pneumococcal sepsis. 2. Lupus with probable nephritis. 3. Normal ejection fraction. 4. Borderline thrombocytopenia today. She is tentatively scheduled for renal biopsy. She needs a followup chest x-ray in 6 weeks. From a Pulmonary perspective, I will sign off. Job ID: [id number]
[2019-09-25] MEDS: Acetaminophen 325 MG TAB PO PRN (00:22)
[2019-09-25 05:19] LABS: Anion Gap 25 mmol/L (10-20); Calc. Creatinine Clearance 14 mL/min (70-130); Calcium 7.9 mg/dL (7.8-10.44); Carbon Dioxide 20 mmol/L (22-29); Chloride 92 mmol/L (98-107); Estimated GFR-MDRD 7; Glucose 104 mg/dL (70-105); Sodium 130 mmol/L (136-145)
[2019-09-25] MEDS ORDERED: Calcium Gluconate 9.2 MEQ in Sodium Chloride 0.9% 100 ML IVPB ONE (05:28)
[2019-09-25 05:30] LABS: Band 4 % (5-11); Hemoglobin 9.9 g/dL (12.0-16.0); Lymphocytes 8 % (21-51); MDiff Complete? YES; Mean Corpuscular HGB CONC 33.8 g/dL (32.0-36.0); Mean Corpuscular Hemoglobin 29.8 pg (27.0-31.0); Mean Platelet Volume 6.9 fL (7.4-10.4); Monocytes 6 % (0-10); Neutrophil 82 % (42-75); Platelet Count 89 thou/uL (130-400); Platelet Morphology Comment Appears Decreased; RBC Distribution Width 16.7 % (11.5-14.5); Red Blood Cell (RBC) Count 3.31 mill/uL (4.20-5.40); White Blood Cell (WBC) Count 16.8 thou/uL (4.8-10.8)
[2019-09-25] MEDS ORDERED: Insulin Regular 300 UNITS/3 ML VIAL IVP SCH (05:30)
[2019-09-25 06:02] LABS: BUN (Urea Nitrogen) 123 mg/dL (7.0-18.7); Potassium 6.7 mmol/L (3.5-5.1)
[2019-09-25] MEDS ORDERED: Calcium Gluconate 9.2 MEQ in Sodium Chloride 0.9% 100 ML IVPB SCH (06:15)
[2019-09-25] MEDS: Dextrose 50% Abboject 50 ML SYRINGE SLOW IVP SCH ×2 (06:29→11:27)
[2019-09-25] MEDS ORDERED: READ PPD TEST SITE PO SCH (09:00)
[2019-09-25] MEDS: hydrALAZINE 25 MG TAB PO SCH ×3 (11:32→21:33)
[2019-09-25] MEDS: predniSONE 20 MG TAB PO SCH (11:32)
[2019-09-25] MEDS: Hydroxychloroquine Sulfate 200 MG TAB PO SCH ×2 (11:32→21:33)
[2019-09-25] MEDS: Acetaminophen/Codeine 30-300mg Tablet PO PRN (11:34)
--- NOTE | 2019-09-25 12:37 | PDOC.HOSPP ---
- Subjective Encounter Date: 09/25/19 Encounter Time: 09:50 Subjective: pt doing well, mom at bedside. plts keep dropping, we wont be able to get kidney bx. care d/w pt and mom. HD today. - Objective Vital Signs & Weight: Vital Signs (12 hours) Temp Pulse Resp BP Pulse Ox 09/25/19 11:35 97.5 F L 91 16 154/91 H 98 09/25/19 10:55 105 H 12 09/25/19 07:31 99.1 F 81 14 166/103 H 98 09/25/19 03:00 97.9 F 83 16 159/100 H 96 Weight Admit Weight 213 lb 13.574 oz Weight 181 lb 7.047 oz Most Recent Monitor Data Heart Rate from ECG 106 NIBP 145/110 NIBP BP-Mean 121 Respiration from ECG 20 SpO2 97 I&O: 09/24/19 09/25/19 09/26/19 06:59 06:59 06:59 Intake Total 640 760 Output Total 3000 Balance -2360 760 Result Diagrams: 09/25/19 04:39 09/25/19 04:39 Hospitalist ROS - Medication Medications: Active Medications Generic Name Dose Route Start Last Admin Trade Name Freq PRN Reason Stop Dose Admin Acetaminophen 650 mg 09/18/19 13:06 09/18/19 14:40 Tylenol [place] 650 mg Q4H PRN Administration Headache/Fever or Pain Acetaminophen 650 mg 09/18/19 13:07 09/25/19 00:22 Tylenol PO 650 mg Q4H PRN Administration Headache/Fever/Mild Pain (1-3) Acetaminophen/Codeine Phosphate 2 tab 09/20/19 11:15 09/25/19 11:34 Tylenol #3 PO 2 tab Q6H PRN Administration Mild-Moderate Pain (1-5) Albuterol/Ipratropium 3 ml 09/11/19 22:30 09/25/19 11:45 Duoneb NEB Not Given [id number] GIA Folic Acid 1 mg 09/22/19 09:00 09/24/19 07:07 Folvite PO 1 mg DAILY GIA Administration Hydralazine HCl 10 mg 09/15/19 12:00 09/19/19 22:03 Apresoline SLOW IVP 10 mg Q4H PRN Administration SBP Greater Than 170 Hydralazine HCl 37.5 mg 09/20/19 21:00 09/25/19 11:32 Apresoline PO Not Given TID GIA Hydroxychloroquine Sulfate 200 mg 09/21/19 21:00 09/25/19 11:32 Plaquenil PO Not Given BID GIA Pantoprazole Sodium 40 mg 09/22/19 09:00 09/24/19 07:07 Protonix PO 40 mg DAILY GIA Administration Sodium Chloride 10 ml 09/08/19 09:00 09/25/19 11:32 Flush - Normal Saline IVF Not Given Q12HR GIA Sodium Chloride 10 ml 09/09/19 07:59 09/21/19 05:20 Flush - Normal Saline IVF 10 ml PRN PRN Administration Saline Flush Sodium Chloride 10 ml 09/11/19 08:54 09/19/19 09:37 Normal Saline Pf FS 10 ml PRN PRN Administration RECONSTITUTION Sterile Water 1 ml 09/08/19 01:03 09/13/19 20:34 Bacteriostatic Water FS 1 ml PRN PRN Administration RECONSTITUTION - Exam General Appearance: ill appearing Eye: PERRL ENT: normocephalic atraumatic Neck: supple Heart: RRR, normal peripheral pulses Respiratory: CTAB, normal chest expansion Gastrointestinal: soft, non-distended, normal bowel sounds Extremities: no edema Neurological: cranial nerve grossly intact, no focal deficits Psychiatric: normal affect, A&O x 3 Hosp A/P - Plan This is a 33 year old female who presented with rapidly progressive shortness of breath requiring intubation SLE prob Lupus nephritis Hypocomplementemia [high ds-ADRIANNA, SmM ab high titre. strep bacteremia #Acute hypoxic respiratory failure secondary to sepsis from strep bacteremia and staph pneumonia Leukocytosis-------> both by bacteremia and steroid induced - blood cultures on admission showed 2/2 strep. Sputum culture growing staph aureus MSSA. - s/p IV ceftriaxone, switched to vanc and meropenem 09/13 due to persistent resp failure. - IV fluconazole. - CT chest shows multifocal pneumonia----------> COVID neg. - IV steroids --40mg q6 #Acute kidney Injury likely from Lupus Nephritis vs RPGN vs post strep GN -on HD - fw toy painter for further mgmt of lupus nephritis. Thrombocytopenia - platelet count 141 Anemia - Hb up to 10, s/p 3 units pRBC Hyponatremia - sodium 132, continue with dialysis Physical deconditioning - PT evaluation Acute encephalopathy - resolved Code status: full code current active issues: -ongoing HD prob..Lupus nephritis, need kidney bx prior to dc. - -on Prednisone and plaguenil. --only if > 100K,bx can be done. --now solumedrol dose 40 to tid - we can taper off steroid - to PO prednisone 40mg bid, after bx done and when she is going home. - I checked with shake splitter, Dr. Bailey and ok w.. going home with above dose but must seen by Dr. Celaya to discuss biopsy result and cw steroid or change to immunosuppresant etc.. - Dr. Bailey wants pt for follow w.,.Dr. Celaya at [facility] and recommends kidney bx prior to dc.
[2019-09-25] MEDS ORDERED: Heparin 10,000 UNITS/ 10 ML VIAL ONE (13:55)
[2019-09-25] MEDS: Folic Acid 1 MG TAB PO SCH (14:40)
--- NOTE | 2019-09-25 15:08 | PRG ---
DATE OF SERVICE: 09/24/2019 OBJECTIVE: VITAL SIGNS: The patient noted with the following vital signs; afebrile, temperature 98.6, pulse 85, respiratory rate of 16, blood pressure of 130/91, O2 saturations are 93%. HEENT: Unremarkable. CARDIOVASCULAR: First and second heart sounds were heard. RESPIRATORY: Clear to auscultation. DIGESTIVE: Revealed a benign abdomen with positive bowel sounds. EXTREMITIES: No peripheral edema. SKIN: No new gross rash. LYMPHATICS: No peripheral lymphadenopathy. IMPRESSION: 1. 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 2. Hypertension. 3. Recent diagnosis of systemic lupus erythematosus. PLAN: 1. The patient's renal biopsy was scheduled, but today could not hold due to thrombocytopenia. 2. Continue current renal supportive measures including renal replacement therapy. 3. Awaiting outpatient dialysis placement. Job ID: [id number]
--- NOTE | 2019-09-25 15:09 | PRG ---
DATE OF SERVICE: 09/23/2019 SUBJECTIVE: The patient is seen and examined. Did very well of dialysis. Noted with the following vital signs. OBJECTIVE: VITAL SIGNS: Afebrile, temperature 97.8, pulse 83, respiratory rate of 16, blood pressure 120 to 172 over 106, O2 saturation 95%. HEENT: Unremarkable. CARDIOVASCULAR SYSTEM: First and second heart sounds were heard. RESPIRATORY SYSTEM: Clear to auscultation. DIGESTIVE SYSTEM: Revealed a benign abdomen. EXTREMITIES: No peripheral edema. SKIN: No new gross rash. LYMPHATICS: No peripheral lymphadenopathy. IMPRESSION: 1. 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 2. Anemia, on erythropoiesis stimulating agents. 3. Recent diagnosis of systemic lupus erythematosus. PLAN: 1. The patient to continue with current Saturday, Saturday, Saturday schedule dialysis. 2. Outpatient dialysis placement in progress. 3. Awaiting renal biopsy to identify the etiology of the renal failure. Job ID: [id number]
--- NOTE | 2019-09-25 15:22 | PRG ---
DATE OF SERVICE: 09/25/2019 SUBJECTIVE: The patient is seen and examined at dialysis with no new complaint. Noted with the following vital signs. OBJECTIVE: VITAL SIGNS: Afebrile, temperature 97.5, pulse 91, respiratory rate of 16, blood pressure 151/91, O2 saturations 98%. HEENT: Unremarkable. CARDIOVASCULAR SYSTEM: First and second heart sounds were heard. RESPIRATORY SYSTEM: Clear to auscultation. DIGESTIVE SYSTEM: Revealed a benign abdomen. Positive bowel sounds. EXTREMITIES: No peripheral edema. SKIN: No new gross rash. LYMPHATICS: No peripheral lymphadenopathy. IMPRESSION: 1. End-stage renal disease, on hemodialysis. 2. 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 3. Thrombocytopenia, query cause. 4. Anemia of chronic kidney disease, on erythropoiesis stimulating agent. PLAN: 1. The patient is currently on dialysis and will continue with Saturday, Saturday, Saturday schedule dialysis. 2. Unfortunately, renal biopsy could not be done given the current thrombocytopenic level. 3. Awaiting outpatient dialysis placement. regional manager on the case. 4. Further management to be dependent on the clinical course. Job ID: [id number]
[2019-09-25] MEDS: methylPREDNISolone Sod Succ 40 MG VIAL IVP SCH ×2 (17:00→21:35)
[2019-09-25] MEDS: Bacteriostatic Water 30 ML VIAL FS PRN (21:35)
[2019-09-26 05:21] LABS: Anion Gap 17 mmol/L (10-20); BUN (Urea Nitrogen) 60 mg/dL (7.0-18.7); Calc. Creatinine Clearance 23 mL/min (70-130); Calcium 7.8 mg/dL (7.8-10.44); Carbon Dioxide 26 mmol/L (22-29); Chloride 96 mmol/L (98-107); Estimated GFR-MDRD 13; Glucose 103 mg/dL (70-105); Potassium 4.9 mmol/L (3.5-5.1); Sodium 134 mmol/L (136-145)
[2019-09-26 05:42] LABS: Anisocytosis SLIGHT = 6-15 cells (100X) (0-5/hpf); Band 2 % (5-11); Eosinophils 1 % (0-10); Hemoglobin 9.1 g/dL (12.0-16.0); Lymphocytes 6 % (21-51); MDiff Complete? YES; Mean Corpuscular HGB CONC 34.1 g/dL (32.0-36.0); Mean Corpuscular Hemoglobin 30.4 pg (27.0-31.0); Mean Corpuscular Volume 89.3 fL (78.0-98.0); Mean Platelet Volume 7.5 fL (7.4-10.4); Monocytes 5 % (0-10); Myelocyte 1 % (0-0); Neutrophil 85 % (42-75); Platelet Count 77 thou/uL (130-400); Platelet Morphology Comment Appears Decreased; Red Blood Cell (RBC) Count 3.01 mill/uL (4.20-5.40); White Blood Cell (WBC) Count 13.9 thou/uL (4.8-10.8)
[2019-09-26] MEDS: methylPREDNISolone Sod Succ 40 MG VIAL IVP SCH ×3 (06:04→22:15)
[2019-09-26] MEDS: Bacteriostatic Water 30 ML VIAL FS PRN ×3 (06:04→22:15)
[2019-09-26] MEDS: hydrALAZINE 25 MG TAB PO SCH ×3 (09:06→22:10)
[2019-09-26] MEDS: Hydroxychloroquine Sulfate 200 MG TAB PO SCH ×2 (09:07→22:10)
[2019-09-26] MEDS: Folic Acid 1 MG TAB PO SCH (09:08)
[2019-09-26] MEDS: Acetaminophen 325 MG TAB PO PRN (14:20)
--- NOTE | 2019-09-26 20:35 | PDOC.HOSPP ---
- Subjective Encounter Date: 09/26/19 Encounter Time: 10:00 Subjective: no overnight events. This morning, feels well and has no complaints. Outpatient dialysis pending PPD results. Renal biopsy deferred due to thrombocytopenia - Objective Vital Signs & Weight: Vital Signs (12 hours) Temp Pulse Resp BP BP Pulse Ox Pulse Ox 09/26/19 16:47 97.8 F 109 H 16 134/91 H 94 L 09/26/19 14:48 99 16 09/26/19 14:21 100 09/26/19 12:51 98.1 F 100 16 142/78 H 98 09/26/19 11:21 95 09/26/19 10:50 100 16 09/26/19 09:06 82 Weight Admit Weight 213 lb 13.574 oz Weight 181 lb 7.047 oz Most Recent Monitor Data Heart Rate from ECG 106 NIBP 145/110 NIBP BP-Mean 121 Respiration from ECG 20 SpO2 97 I&O: 09/25/19 09/26/19 09/27/19 06:59 06:59 06:59 Intake Total 760 480 790 Output Total 2500 1 Balance 760 -2020 789 Result Diagrams: 09/26/19 04:31 09/26/19 04:31 Hospitalist ROS - Review of Systems Constitutional: denies: fever, chills, sweats, weakness, malaise, other Respiratory: denies: cough, dry, shortness of breath, hemoptysis, SOB with excertion, pleuritic pain, sputum, wheezing, other Cardiovascular: denies: chest pain, palpitations, orthopnea, paroxysmal noc. dyspnea, edema, light headedness, other Gastrointestinal: denies: nausea, vomiting, abdominal pain, diarrhea, constipation, melena, hematochezia, other - Medication Medications: Active Medications Generic Name Dose Route Start Last Admin Trade Name Freq PRN Reason Stop Dose Admin Acetaminophen 650 mg 09/18/19 13:06 09/18/19 14:40 Tylenol [place] 650 mg Q4H PRN Administration Headache/Fever or Pain Acetaminophen 650 mg 09/18/19 13:07 09/26/19 14:20 Tylenol PO 650 mg Q4H PRN Administration Headache/Fever/Mild Pain (1-3) Acetaminophen/Codeine Phosphate 2 tab 09/20/19 11:15 09/25/19 11:34 Tylenol #3 PO 2 tab Q6H PRN Administration Mild-Moderate Pain (1-5) Albuterol/Ipratropium 3 ml 09/11/19 22:30 09/26/19 19:25 Duoneb NEB 3 ml [id number] GIA Administration Folic Acid 1 mg 09/22/19 09:00 09/26/19 09:08 Folvite PO 1 mg DAILY GIA Administration Hydralazine HCl 10 mg 09/15/19 12:00 09/19/19 22:03 Apresoline SLOW IVP 10 mg Q4H PRN Administration SBP Greater Than 170 Hydralazine HCl 37.5 mg 09/20/19 21:00 09/26/19 14:21 Apresoline PO 37.5 mg TID GIA Administration Hydroxychloroquine Sulfate 200 mg 09/21/19 21:00 09/26/19 09:07 Plaquenil PO 200 mg BID GIA Administration Methylprednisolone Sodium Succinate 40 mg 09/25/19 14:00 09/26/19 14:23 Solu-Medrol IVP 40 mg Q8HR GIA Administration Pantoprazole Sodium 40 mg 09/22/19 09:00 09/26/19 09:08 Protonix PO 40 mg DAILY GIA Administration Sodium Chloride 10 ml 09/08/19 09:00 09/26/19 09:08 Flush - Normal Saline IVF 10 ml Q12HR GIA Administration Sodium Chloride 10 ml 09/09/19 07:59 09/26/19 06:04 Flush - Normal Saline IVF 10 ml PRN PRN Administration Saline Flush Sodium Chloride 10 ml 09/11/19 08:54 09/19/19 09:37 Normal Saline Pf FS 10 ml PRN PRN Administration RECONSTITUTION Sterile Water 1 ml 09/08/19 01:03 09/26/19 14:23 Bacteriostatic Water FS 1 ml PRN PRN Administration RECONSTITUTION - Exam General Appearance: NAD, awake alert General - other findings: sitting comfortably in chair Eye: PERRL Neck: no JVD Heart: no murmur, no gallops, no rubs, normal peripheral pulses Heart - other findings: sinus tachy on telemetry Respiratory: CTAB, no wheezes, no rales, no ronchi Gastrointestinal: soft, non-tender, non-distended, normal bowel sounds Extremities: no edema Psychiatric: normal affect, normal behavior, A&O x 3 Hosp A/P (1) Community acquired pneumonia Code(s): J18.9 - PNEUMONIA, UNSPECIFIED ORGANISM Status: Acute (2) KORI (acute kidney injury) Code(s): N17.9 - ACUTE KIDNEY FAILURE, UNSPECIFIED Status: Acute (3) Anemia Code(s): D64.9 - ANEMIA, UNSPECIFIED Status: Acute (4) SLE (systemic lupus erythematosus) Code(s): M32.9 - SYSTEMIC LUPUS ERYTHEMATOSUS, UNSPECIFIED Status: Acute - Plan * ESRD due to SLE nephritis * thrombocytopenia * low platelets after plequanil restarted; may be due to bone marrow suppression; considering Hepatitis C and SLE, may be ITP but is a diagnosis of exclusion and less likely in context of high dose steroids * considering preference to biopsy while inpatient and patient being on high dose steroids, even if will hold hydroxy will likely take several days for platelets to recover * * transfuse platelets in AM * repeat Plt count * hepatitis C * unknown source; * * hepatitis C PCR * * dispo/PPx * full code. mother is surrogate. * DVT PPx - SCDs * GI PPx - started pantoprazole
[2019-09-27 04:56] LABS: Hemoglobin 8.6 g/dL (12.0-16.0); Mean Corpuscular HGB CONC 32.6 g/dL (32.0-36.0); Mean Corpuscular Hemoglobin 29.6 pg (27.0-31.0); Mean Corpuscular Volume 90.7 fL (78.0-98.0); Mean Platelet Volume 11.5 fL (7.4-10.4); Platelet Count 75 thou/uL (130-400); RBC Distribution Width 16.9 % (11.5-14.5); White Blood Cell (WBC) Count 12.7 thou/uL (4.8-10.8)
[2019-09-27 05:07] LABS: Anion Gap 20 mmol/L (10-20); BUN (Urea Nitrogen) 98 mg/dL (7.0-18.7); Calc. Creatinine Clearance 18 mL/min (70-130); Carbon Dioxide 23 mmol/L (22-29); Chloride 96 mmol/L (98-107); Estimated GFR-MDRD 10; Glucose 113 mg/dL (70-105); Potassium 5.3 mmol/L (3.5-5.1); Sodium 134 mmol/L (136-145)
[2019-09-27] MEDS: methylPREDNISolone Sod Succ 40 MG VIAL IVP SCH ×3 (05:41→21:17)
[2019-09-27] MEDS: Bacteriostatic Water 30 ML VIAL FS PRN (05:41)
--- NOTE | 2019-09-27 06:34 | PRG ---
DATE OF SERVICE: 09/22/2019 SUBJECTIVE: The patient was seen and noted with no new complaint. Noted with the following vital signs. OBJECTIVE: VITAL SIGNS: Afebrile, temperature 98.3, pulse 96, respiratory rate of 18, blood pressure 150/101 with O2 saturation of 96%. HEENT: Unremarkable. CARDIOVASCULAR SYSTEM: First and second heart sounds were heard. RESPIRATORY SYSTEM: Clear to auscultation. DIGESTIVE SYSTEM: Revealed a benign abdomen. Positive bowel sounds. EXTREMITIES: No peripheral edema. SKIN: No new gross rash. LYMPHATICS: No peripheral lymphadenopathy. LABORATORY INVESTIGATION: Showed a hemoglobin of 10.0. Creatinine 5.19 with BUN of 90. IMPRESSION: 1. 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 Potential etiologies to include, but not limited to crescentic glomerulonephritis arising from lupus nephritis as well as .. Job ID: [id number]
[2019-09-27] MEDS: Hydroxychloroquine Sulfate 200 MG TAB PO SCH ×2 (09:38→21:15)
[2019-09-27] MEDS: hydrALAZINE 25 MG TAB PO SCH ×3 (09:38→21:15)
[2019-09-27] MEDS: Folic Acid 1 MG TAB PO SCH (09:39)
[2019-09-27] MEDS ORDERED: PARoxetine 20 MG TAB PO SCH (11:30)
[2019-09-27 19:25] LABS: Hemoglobin 9.2 g/dL (12.0-16.0); Platelet Count 112 thou/uL (130-400)
--- NOTE | 2019-09-27 20:31 | PDOC.HOSPP ---
- Subjective Encounter Date: 09/27/19 Encounter Time: 09:00 Subjective: no overnight events. This morning, feels well and has no complaints. - Objective Vital Signs & Weight: Vital Signs (12 hours) Temp Pulse Pulse Resp BP BP BP 09/27/19 19:13 98.2 F 87 20 09/27/19 18:15 142/74 H 09/27/19 17:25 98.4 F 83 14 182/108 H 09/27/19 16:31 97.9 F 78 15 179/106 H 09/27/19 16:16 98.5 F 76 14 172/107 H 09/27/19 15:03 09/27/19 12:29 97 15 167/113 H 09/27/19 09:42 146/92 H 09/27/19 09:38 BP Pulse Ox 09/27/19 19:13 163/98 H 97 09/27/19 18:15 09/27/19 17:25 97 09/27/19 16:31 98 09/27/19 16:16 96 09/27/19 15:03 145/95 H 09/27/19 12:29 100 09/27/19 09:42 09/27/19 09:38 96 Weight Admit Weight 213 lb 13.574 oz Weight 182 lb 8.684 oz Most Recent Monitor Data Heart Rate from ECG 106 NIBP 145/110 NIBP BP-Mean 121 Respiration from ECG 20 SpO2 97 I&O: 09/26/19 09/27/19 09/28/19 06:59 06:59 06:59 Intake Total 480 1267 1320 Output Total 2500 1 -2019 1266 1320 Result Diagrams: 09/27/19 19:03 09/27/19 04:35 Hospitalist ROS - Review of Systems Constitutional: denies: fever, chills, sweats, weakness, malaise, other Respiratory: denies: cough, dry, shortness of breath, hemoptysis, SOB with excertion, pleuritic pain, sputum, wheezing, other Cardiovascular: denies: chest pain, palpitations, orthopnea, paroxysmal noc. dyspnea, edema, light headedness, other Gastrointestinal: denies: nausea, vomiting, abdominal pain, diarrhea, constipation, melena, hematochezia, other - Medication Medications: Active Medications Generic Name Dose Route Start Last Admin Trade Name Freq PRN Reason Stop Dose Admin Acetaminophen 650 mg 09/18/19 13:06 09/18/19 14:40 Tylenol FL 650 mg Q4H PRN Administration Headache/Fever or Pain Acetaminophen 650 mg 09/18/19 13:07 09/26/19 14:20 Tylenol PO 650 mg Q4H PRN Administration Headache/Fever/Mild Pain (1-3) Acetaminophen/Codeine Phosphate 2 tab 09/20/19 11:15 09/25/19 11:34 Tylenol #3 PO 2 tab Q6H PRN Administration Mild-Moderate Pain (1-5) Folic Acid 1 mg 09/22/19 09:00 09/27/19 09:39 Folvite PO 1 mg DAILY GIA Administration Hydroxychloroquine Sulfate 200 mg 09/21/19 21:00 09/27/19 09:38 Plaquenil PO 200 mg BID GIA Administration Methylprednisolone Sodium Succinate 40 mg 09/25/19 14:00 09/27/19 14:55 Solu-Medrol IVP 40 mg Q8HR GIA Administration Pantoprazole Sodium 40 mg 09/22/19 09:00 09/27/19 09:39 Protonix PO 40 mg DAILY GIA Administration Sodium Chloride 10 ml 09/08/19 09:00 09/27/19 09:39 Flush - Normal Saline IVF 10 ml Q12HR GIA Administration Sodium Chloride 10 ml 09/09/19 07:59 09/27/19 05:41 Flush - Normal Saline IVF 10 ml PRN PRN Administration Saline Flush Sodium Chloride 10 ml 09/11/19 08:54 09/19/19 09:37 Normal Saline Pf FS 10 ml PRN PRN Administration RECONSTITUTION Sterile Water 1 ml 09/08/19 01:03 09/27/19 05:41 Bacteriostatic Water FS 1 ml PRN PRN Administration RECONSTITUTION - Exam General Appearance: NAD, awake alert Heart: RRR, no murmur, no gallops, no rubs, normal peripheral pulses Respiratory: CTAB, no wheezes, no rales, no ronchi, normal chest expansion, no tachypnea, normal percussion Gastrointestinal: soft, non-tender, non-distended, normal bowel sounds, no palpable masses, no hepatomegaly, no splenomegaly, no bruit Extremities: no edema Psychiatric: normal affect, normal behavior, A&O x 3 Hosp A/P (1) Community acquired pneumonia Code(s): J18.9 - PNEUMONIA, UNSPECIFIED ORGANISM Status: Acute (2) KORI (acute kidney injury) Code(s): N17.9 - ACUTE KIDNEY FAILURE, UNSPECIFIED Status: Acute (3) Anemia Code(s): D64.9 - ANEMIA, UNSPECIFIED Status: Acute (4) SLE (systemic lupus erythematosus) Code(s): M32.9 - SYSTEMIC LUPUS ERYTHEMATOSUS, UNSPECIFIED Status: Acute - Plan * ESRD due to SLE nephritis * thrombocytopenia * low platelets after plequanil restarted; may be due to bone marrow suppression, SLE induced thrombocytopenia. Considering Hepatitis C and SLE, may be ITP but is a diagnosis of exclusion and less likely in context of high dose steroids * considering preference to biopsy while inpatient and patient being on high dose steroids, even if will hold hydroxy will likely take several days for platelets to recover * * Transfused platelets, now 113 * CT guided renal biopsy * arrange outpatient HD; if tolerates CT guided biopsy well, will contnue to monitor possible DC tomorrow or Saturday * hepatitis C * unknown source; * * hepatitis C PCR pending * * dispo/PPx * full code. mother is surrogate. * DVT PPx - SCDs * GI PPx - started pantoprazole * ELOS 1-2 midnights
[2019-09-27] MEDS: Acetaminophen/Codeine 30-300mg Tablet PO PRN (21:16)
[2019-09-28] MEDS: methylPREDNISolone Sod Succ 40 MG VIAL IVP SCH ×3 (05:29→21:24)
[2019-09-28 05:43] LABS: %Neutrophils 88.6 % (42.0-75.0); Hemoglobin 8.3 g/dL (12.0-16.0); Mean Corpuscular HGB CONC 33.6 g/dL (32.0-36.0); Mean Corpuscular Hemoglobin 30.2 pg (27.0-31.0); Mean Corpuscular Volume 89.9 fL (78.0-98.0); Mean Platelet Volume 10.9 fL (7.4-10.4); Platelet Count 101 thou/uL (130-400); RBC Distribution Width 17.1 % (11.5-14.5); Red Blood Cell (RBC) Count 2.75 mill/uL (4.20-5.40); White Blood Cell (WBC) Count 10.2 thou/uL (4.8-10.8)
[2019-09-28 05:44] LABS: #Eosinphils 0.1 thou/uL (0.0-0.7); #Lymphocytes 0.6 thou/uL (1.20-3.40); #Monocytes 0.4 thou/uL (0.11-0.59); %Eosinophils 1.4 % (0.0-10.0); %Lymphocytes 5.7 % (21.0-51.0); %Monocytes 4.2 % (0.0-10.0)
[2019-09-28 06:03] LABS: Anion Gap 20 mmol/L (10-20); Calc. Creatinine Clearance 16 mL/min (70-130); Calcium 7.8 mg/dL (7.8-10.44); Carbon Dioxide 23 mmol/L (22-29); Chloride 96 mmol/L (98-107); Estimated GFR-MDRD 9; Glucose 97 mg/dL (70-105); Potassium 5.8 mmol/L (3.5-5.1); Sodium 133 mmol/L (136-145)
[2019-09-28 06:14] LABS: BUN (Urea Nitrogen) 111 mg/dL (7.0-18.7)
[2019-09-28] MEDS ORDERED: Sodium Bicarbonate 2.5 MEQ/5 ML VIAL ONE (08:44)
[2019-09-28] MEDS ORDERED: Fentanyl 100 MCG/2 ML VIAL ONE (08:44)
[2019-09-28] MEDS ORDERED: Midazolam HCl 2 mg/2 ml Vial ONE (08:44)
[2019-09-28] MEDS: Acetaminophen/Codeine 30-300mg Tablet PO PRN ×2 (09:45→21:29)
--- NOTE | 2019-09-28 09:52 | CT ---
Renal biopsy random CT-guided HISTORY: Renal failure. FINDINGS: After explaining the procedure and answering all questions, limited CT imaging of the kidne ys was performed. Sterile technique, buffered local anesthesia, CT guidance, and a right posterior approach were used to carefully advance a 17-gauge trocar needle to the hypovascular zone near the in ferior pole of the right kidney. Needle was obliqued to maximize acquisition of the glomeruli. A total of 4 18-gauge core biopsy specimens were obtained and submitted to Dr. Cordero from pathology. Needle was removed. No evidence of complication. Postprocedure images show some residual hyperdense b lood around the inferior pole of the left kidney. Patient tolerated the procedure well and was returned in unchanged condition. IMPRESSION : Technically successful CT-guided random renal biopsy. Pathology is pending.
[2019-09-28] MEDS: Hydroxychloroquine Sulfate 200 MG TAB PO SCH ×2 (10:45→21:24)
[2019-09-28] MEDS: hydrALAZINE 25 MG TAB PO SCH ×3 (10:45→21:24)
[2019-09-28] MEDS: Acetaminophen 325 MG TAB PO PRN (16:29)
[2019-09-28] MEDS: Folic Acid 1 MG TAB PO SCH (16:30)
[2019-09-28] MEDS: PARoxetine 20 MG TAB PO SCH (16:30)
--- NOTE | 2019-09-28 18:13 | PRG ---
DATE OF SERVICE: 09/28/2019 SUBJECTIVE: The patient noted with the following vital signs. OBJECTIVE: VITAL SIGNS: Afebrile, temperature 98.5, pulse 90, respiratory rate of 16, O2 saturations 96%, blood pressure . HEENT: Unremarkable. CARDIOVASCULAR SYSTEM: First and second heart sounds were heard. RESPIRATORY SYSTEM: Clear to auscultation. DIGESTIVE SYSTEM: Revealed a benign abdomen with positive bowel sounds. EXTREMITIES: No peripheral edema. SKIN: No new gross rash. LYMPHATICS: No peripheral lymphadenopathy. IMPRESSION: 1. End-stage renal disease, possibly in the context of lupus versus other potential immune complex glomerulonephritis including but no limited to post strep glomerulonephritis. 2. Anemia of critical illness. 3. Thrombocytopenia. 4. Hyperkalemia. PLAN: 1. The patient to undergo renal biopsy today. 2. The patient in accordance with the schedule will undergo hemodialysis today. 3. Outpatient dialysis placement in progress. manager strategic development on the case. 4. From the renal standpoint, the patient can be discharged to continue outpatient dialysis. However, this will be contingent on the availability of chair in the outpatient dialysis facility. Job ID: [id number]
[2019-09-29] MEDS: methylPREDNISolone Sod Succ 40 MG VIAL IVP SCH (05:38)
[2019-09-29] MEDS ORDERED: predniSONE 20 MG TAB PO SCH (09:00)
[2019-09-29] MEDS: Hydroxychloroquine Sulfate 200 MG TAB PO SCH (09:02)
[2019-09-29] MEDS: hydrALAZINE 25 MG TAB PO SCH ×2 (09:02→14:37)
[2019-09-29] MEDS: PARoxetine 20 MG TAB PO SCH (09:03)
[2019-09-29] MEDS: Folic Acid 1 MG TAB PO SCH (09:03)
[2019-09-29] MEDS: Acetaminophen/Codeine 30-300mg Tablet PO PRN (09:07)
[2019-09-29 13:28] VITALS: BMI 27.3
[2019-09-29 14:35] VITALS: BP 157/93; TEMP 96.8
--- NOTE | 2019-09-30 02:36 | DIS ---
DATE OF ADMISSION: 09/07/2019 DATE OF DISCHARGE: 09/29/2019 HOSPITAL COURSE: Ms. Barlow is a 34-year-old female with a recently diagnosed systemic lupus erythematous, who presented with acute hypoxic respiratory failure requiring intubation. She was found to have sepsis and ARDS due to strep bacteremia and staph pneumonia. In addition to that, the patient developed anuric KORI due to SLE nephritis. Infectious disease, Nephrology and Critical Care were consulted. The patient gradually improved and was extubated. However, kidney function remained poor. The patient was started on dialysis early in the course of hospitalization. Prior to discharge, the patient obtained a kidney biopsy for further followup with Rheumatology. On the day of discharge, the patient was hemodynamically stable, breathing well on room air. PHYSICAL EXAMINATION: VITAL SIGNS: Blood pressure 157/93, temperature 96.8, pulse 107, respiratory rate 17, oxygen saturation 97% on room air. GENERAL: Lying comfortably in bed, in no apparent distress. HEART: Regular rate and rhythm. No murmurs, gallops, or rubs. LUNGS: Clear to auscultation bilaterally. No wheezing, rales, or rhonchi. ABDOMEN: Nontender and nondistended. Normal bowel sounds. Right flank site of biopsy appears clean. No signs of infection or hematoma. MEDICATION LIST: New medications: 1. Tylenol 650 mg p.o. q.4 hours p.r.n. pain. 2. Epoetin 98214 units subcutaneous daily seven days. 3. Folic acid 1 mg p.o. daily. 4. Hydralazine 37.5 mg p.o. t.i.d. 5. Pantoprazole 40 mg p.o. daily. 6. Prednisone 40 mg p.o. q.8 hours. Continued Medications: 1. . 2. Amlodipine. Modified Medications: None. Job ID: [id number] [facility]
--- NOTE | 2019-09-30 08:54 | PRG ---
DATE OF SERVICE: 09/29/2019 SUBJECTIVE: The patient is seen and examined, doing very well post biopsy yesterday, very eager to go home. The patient is noted with the following vital signs. OBJECTIVE: VITAL SIGNS: Afebrile. Temperature 96.8, pulse 88, respiratory rate of 18, O2 saturations of 95%, blood pressure 169/99. HEENT: Unremarkable. CARDIOVASCULAR: First and second heart sounds were heard. RESPIRATORY SYSTEM: Clear to auscultation. DIGESTIVE SYSTEM: Revealed a benign abdomen with positive bowel sounds. EXTREMITIES: No peripheral edema. SKIN: No new gross rash. LYMPHATICS: No peripheral lymphadenopathy. IMPRESSION: End-stage renal disease, likely in the context of post strep immune complex mediated glomerulonephritis on a backdrop of systemic lupus erythematosus. PLAN: 1. The patient from the renal standpoint is good for discharge as long as the outpatient dialysis facility has been secured. 2. I did have extensive discussion with the pathologist who is evaluating the kidney biopsy and the impression from the pathologist is that this is likely immune complex mediated glomerulonephritis from the infection which this patient had strep with some significant tubular damage probably from sepsis. 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 We will follow with you. Job ID: [id number]
--- NOTE | 2019-09-30 14:45 | CT ---
Renal biopsy random CT-guided HISTORY: Renal failure. FINDINGS: After explaining the procedure and answering all questions, limited CT imaging of the kidne ys was performed. Sterile technique, buffered local anesthesia, CT guidance, and a right posterior approach were used to carefully advance a 17-gauge trocar needle to the hypovascular zone near the in ferior pole of the right kidney. Needle was obliqued to maximize acquisition of the glomeruli. A total of 4 18-gauge core biopsy specimens were obtained and submitted to Dr. Cordero from pathology. Needle was removed. No evidence of complication. Postprocedure images show some residual hyperdense b lood around the inferior pole of the left kidney. Patient tolerated the procedure well and was returned in unchanged condition. IMPRESSION : Technically successful CT-guided random renal biopsy. Pathology is pending. Transcribed Date/Time: 09/30/2019 2:45 PM
== END 2019-09-29 14:57 | disposition home or self-care (01) | DRG 870 ==
LOC: ERS 20:32 → CCU 23:32 → 2NO 09-19 21:52
PROVIDERS: ADMIT Internal Medicine; ATTEND Internal Medicine
PROC: 8E0ZXY6 Isolation (ICD-10-PCS; 2019-09-07)
PROC: 5A1955Z Respiratory Ventilation, Greater than 96 Consecutive Hours (ICD-10-PCS; principal; 2019-09-08)
PROC: 0BH17EZ Insertion of Endotracheal Airway into Trachea, Via Natural or Artificial Opening (ICD-10-PCS; 2019-09-08)
PROC: 3E033XZ Introduction of Vasopressor into Peripheral Vein, Percutaneous Approach (ICD-10-PCS; 2019-09-08)
PROC: 02HV33Z Insertion of Infusion Device into Superior Vena Cava, Percutaneous Approach (ICD-10-PCS; 2019-09-08)
PROC: 06HY33Z Insertion of Infusion Device into Lower Vein, Percutaneous Approach (ICD-10-PCS; 2019-09-08)
PROC: 5A1D70Z Performance of Urinary Filtration, Intermittent, Less than 6 Hours Per Day (ICD-10-PCS; 2019-09-08)
PROC: 04HK33Z Insertion of Infusion Device into Right Femoral Artery, Percutaneous Approach (ICD-10-PCS; 2019-09-08)
PROC: 0JH63XZ Insertion of Tunneled Vascular Access Device into Chest Subcutaneous Tissue and Fascia, Percutaneous Approach (ICD-10-PCS; 2019-09-10)
PROC: 02HV33Z Insertion of Infusion Device into Superior Vena Cava, Percutaneous Approach (ICD-10-PCS; 2019-09-10)
PROC: B518ZZA Fluoroscopy of Superior Vena Cava, Guidance (ICD-10-PCS; 2019-09-10)
PROC: 0TB03ZX Excision of Right Kidney, Percutaneous Approach, Diagnostic (ICD-10-PCS; 2019-09-28)
PROC: BW201ZZ Computerized Tomography (CT Scan) of Abdomen using Low Osmolar Contrast (ICD-10-PCS; 2019-09-28)
DX: A40.3 Sepsis due to Streptococcus pneumoniae (principal); J80 Acute respiratory distress syndrome; J96.01 Acute respiratory failure with hypoxia; R65.21 Severe sepsis with septic shock; J13 Pneumonia due to Streptococcus pneumoniae; I21.A1 Myocardial infarction type 2; I46.9 Cardiac arrest, cause unspecified; A41.2 Sepsis due to unspecified staphylococcus; G93.41 Metabolic encephalopathy; N18.6 End stage renal disease; N17.9 Acute kidney failure, unspecified; E87.2 Acidosis; E87.1 Hypo-osmolality and hyponatremia; Z20.828 Contact with and (suspected) exposure to other viral communicable diseases; M32.14 Glomerular disease in systemic lupus erythematosus; J45.909 Unspecified asthma, uncomplicated; D84.1 Defects in the complement system; D64.9 Anemia, unspecified; I10 Essential (primary) hypertension; D69.6 Thrombocytopenia, unspecified; E87.6 Hypokalemia; E87.5 Hyperkalemia; Z79.52 Long term (current) use of systemic steroids; Z79.899 Other long term (current) drug therapy
CPT/HCPCS: 36415; 36416; 36430; 50200; 71045; 71250; 77012; 80048; 80053; 80069; 80202; 80306; 81001; 82550; 82553; 82607; 82746; 82805; 83605; 83735; 83880; 84100; 84484; 85007; 85025; 85027; 85610; 85613; 85730; 86038; 86140; 86146; 86147; 86160; 86225; 86235; 86580; 86704; 86706; 86803; 86850; 86900; 86901; 87040; 87070; 87077; 87149; 87186; 87205; 87324; 87340; 87389; 87449; 87522; 87633; 87635; 87899; 88329; 90935; 93005; 93306; 93970; 94002; 94003; 94640; 94760; 96361; 96365; 96367; 96375; 99292; C1751; C1752; C1769; C9113; G0257; G0365; J0171; J0282; J0360; J0456; J0692; J0696; J1450; J1610; J1642; J1644; J1720; J1815; J2060; J2185; J2250; J2270; J2704; J2920; J2930; J3010; J3370; J3490; J7050; J7070; J7512; J7620; P9016; P9035; S0020; U0003

== ENCOUNTER → 2019-10-02 | Day surgery (SDC) | payer MEDICAID, OTHER ==
[2019-10-02 16:17] VITALS: BP 156/91; TEMP 98.6
== END ==
LOC: ONC/OP 11:00
PROVIDERS: ATTEND Internal Medicine Nephrology
DX: N18.6 End stage renal disease (principal); D63.1 Anemia in chronic kidney disease
CPT/HCPCS: 36430; 86850; 86900; 86901; P9016

== ENCOUNTER 2019-10-18 09:04 | Day surgery (SDC) | payer MEDICAID | END 2019-10-18 19:30 | disposition home or self-care (01) | LOC: SDC/OP 09:04 | PROVIDERS: ATTEND Internal Medicine Nephrology | PROC: 30233N1 Transfusion of Nonautologous Red Blood Cells into Peripheral Vein, Percutaneous Approach (ICD-10-PCS; principal; 2019-10-18) | DX: D64.9 Anemia, unspecified (principal) | CPT/HCPCS: 36415; 36430; 86850; 86900; 86901; P9016 ==

== ENCOUNTER 2019-10-18 10:48 | Day surgery (SDC) | payer MEDICAID ==
[2019-10-18] MEDS ORDERED: cloNIDine 0.1 MG TAB PO SCH ×2 (17:30→18:45)
[2019-10-18 19:30] VITALS: BP 173/105; TEMP 99.1
== END 2019-10-18 19:36 | disposition home or self-care (01) ==
LOC: ONC/OP 10:48 → ONC 11:24 → ONC/OP 19:36
PROVIDERS: ATTEND Internal Medicine Nephrology
DX: D64.9 Anemia, unspecified (principal)
CPT/HCPCS: 36415; 36430; 86850; 86900; 86901; P9016

== ENCOUNTER 2019-11-21 19:10 | Inpatient (IN) | payer OTHER ==
[~2019-11-21 19:10] MED LIST: Iopamidol-370 76% 500 ML 1 ML ONE
--- NOTE | 2019-11-21 19:48 | RAD ---
EXAM: Single view of the chest HISTORY: Chest pain COMPARISON: 09/19/2019 FINDINGS: Single view of the chest shows a normal sized cardiomediastinal silhouette. The dialysis c atheter is unchanged in position. Increased interstitial lung markings are seen in the periphery of both lungs. There is no evidence of consolidation, mass, or pleural effusion. The bones are unremark able IMPRESSION: No evidence of acute cardiopulmonary disease
[2019-11-21 19:52] LABS: #Eosinphils 0.1 thou/uL (0.0-0.7); #Lymphocytes 1.6 thou/uL (1.20-3.40); #Monocytes 0.7 thou/uL (0.11-0.59); #Neutrophils 9.3 thou/uL (1.40-6.50); %Basophils 0.2 % (0.0-1.0); %Eosinophils 0.5 % (0.0-10.0); %Lymphocytes 13.5 % (21.0-51.0); %Neutrophils 79.9 % (42.0-75.0); Mean Corpuscular HGB CONC 31.3 g/dL (32.0-36.0); Mean Corpuscular Hemoglobin 30.8 pg (27.0-31.0); Mean Corpuscular Volume 98.4 fL (78.0-98.0); Mean Platelet Volume 9.7 fL (7.4-10.4); Platelet Count 210 thou/uL (130-400); RBC Distribution Width 16.9 % (11.5-14.5); Red Blood Cell (RBC) Count 2.58 mill/uL (4.20-5.40); White Blood Cell (WBC) Count 11.6 thou/uL (4.8-10.8)
[2019-11-21] MEDS ORDERED: Cefepime 2 GM VIAL ONE (19:53)
[2019-11-21] MEDS ORDERED: Vancomycin 1 GM/200 ML BAG ONE (19:53)
[2019-11-21 19:59] LABS: BHCG - Serum Negative (NEGATIVE); Pregs Control Background? CLEAR/WHITE (CLR/WHITE); Pregs Control Bar Appear? YES (CONTROL BAR)
[2019-11-21 20:13] LABS: ALT (SGPT) 17 U/L (8-55); AST (SGOT) 18 U/L (5-34); Albumin 3.3 g/dL (3.5-5.0); Alkaline Phosphatase 96 U/L (40-110); Anion Gap 13 mmol/L (10-20); BUN (Urea Nitrogen) 6 mg/dL (7.0-18.7); Bilirubin, Total 0.3 mg/dL (0.2-1.2); Calc. Creatinine Clearance 0 mL/min (70-130); Calcium 8.5 mg/dL (7.8-10.44); Carbon Dioxide 27 mmol/L (22-29); Chloride 103 mmol/L (98-107); Estimated GFR-MDRD Greater than 90; Globulin 3.3 g/dL (2.4-3.5); Glucose 95 mg/dL (70-105); Potassium 3.1 mmol/L (3.5-5.1); Protein, Total 6.6 g/dL (6.0-8.3); Sodium 140 mmol/L (136-145)
--- NOTE | 2019-11-21 20:29 | CT ---
EXAM: CT neck with contrast HISTORY: Right neck pain and swelling for 3 days COMPARISON: None TECHNIQUE: Multiple contiguous axial images were obtained and a CT of the neck with contrast. Sagitta l and coronal reformats were performed. FINDINGS: No mucosal abnormality is seen in the nasopharynx, oropharynx, hypopharynx, or subglottic regions. The parapharyngeal spaces are symmetric. The patient has a right IJ dialysis catheter. Thrombus is seen 3.9 cm cranial to the dialysis cathete r and surrounding the internal jugular portion of the dialysis catheter. Surrounding soft tissue swelling is seen. There is asymmetric enlargement of the right sternocleidomastoid muscle compared to the left. No cervical adenopathy is seen. The salivary glands are symmetric without focal abnormality. The thyroid is unremarkable. No osseous abnormality is seen in the cervical spine. The visualized intracranial structures are unremarkable. The lung apices are unremarkable. IMPRESSION: Right IJ thrombus formation surrounding the dialysis catheter
[2019-11-21] MEDS ORDERED: Enoxaparin Sodium 80 MG/0.8 ML SYRINGE ONE (21:18)
[2019-11-21] MEDS ORDERED: Acetaminophen 500 MG TAB ONE (22:39)
[2019-11-21] MEDS ORDERED: Ondansetron ODT 4 MG TAB PO PRN (22:47)
[2019-11-21] MEDS ORDERED: Ondansetron PF 4 MG/2 ML Vial IVP PRN (22:47)
[2019-11-21] MEDS ORDERED: Calcium Carbonate 500 MG ChewTAB PO PRN (22:47)
[2019-11-21] MEDS ORDERED: Acetaminophen 650 MG Suppository PR PRN (22:47)
[2019-11-21] MEDS ORDERED: Acetaminophen 325 MG TAB PO PRN (22:47)
[2019-11-21] MEDS ORDERED: Sodium Chloride 0.9% 1,000 ML IV SCH (23:00)
--- NOTE | 2019-11-21 23:00 | PDOC.HHP ---
Hospitalist HPI - History of Present Illness neck pain History of Present Illness: Case of an 34y/o female with pmhx of lupus, ckd, BA and htn who comes to hospital due to neck pain. patient receive H/D today, she is on H/D after a recent hospitalization for pneumonia that affected her kidneys, apparently she has been doing great and h/d was planned to be discontinued. patient states that since 11/18 she noted a mass on her neck that has increased in size the last couple of days an is associated with pain when she moves her neck. patient states she went to her h/d center today and after her treatment she was told to come to hospital for evaluation. at the ED patient was diagnosed with L IJ thrombus and hospitalist was called for further evaluation and management. patient denies fever chills n/v dysuria diarrhea or cough. Hospitalist ROS - Review of Systems All other systems reviewed; all pertinent +/- noted in HPI/Subj Hospitalist History - Past Surgical History Past Surgical History: reports: Hernia Repair - Family History Other Family History: lupus htn - Social History Smoking Status: Never smoker Alcohol: reports: None Drugs: reports: none - Exam General Appearance: NAD, awake alert Eye: PERRL, anicteric sclera ENT: normocephalic atraumatic, no oropharyngeal lesions Neck: supple, symmetric, no JVD, no thyromegaly Neck - other findings: mass on neck, tender to palpation no secretions or erythma noted Heart: RRR, no murmur, no gallops Respiratory: CTAB, no wheezes, no rales Gastrointestinal: soft, non-tender, non-distended Extremities: no cyanosis, no clubbing, no edema Skin: normal turgor, no lesions Neurological: cranial nerve grossly intact, normal sensation to touch Musculoskeletal: normal tone, normal strength, no muscle wasting Psychiatric: normal affect, normal behavior, A&O x 3 Hospitalist Results - Labs Result Diagrams: 11/21/19 19:39 11/21/19 19:39 Lab results: WBC 11.6 thou/uL (4.8-10.8) H 11/21/19 19:39 Hgb 8.0 g/dL (12.0-16.0) L 11/21/19 19:39 Hct 25.4 % (36.0-47.0) L 11/21/19 19:39 MCV 98.4 fL (78.0-98.0) H 11/21/19 19:39 Plt Count 210 thou/uL (130-400) 11/21/19 19:39 Neutrophils % 79.9 % (42.0-75.0) H 11/21/19 19:39 Sodium 140 mmol/L (136-145) 11/21/19 19:39 Potassium 3.1 mmol/L (3.5-5.1) L 11/21/19 19:39 Chloride 103 mmol/L (98-107) 11/21/19 19:39 Carbon Dioxide 27 mmol/L (22-29) 11/21/19 19:39 BUN 6 mg/dL (7.0-18.7) L 11/21/19 19:39 Creatinine 0.73 mg/dL (0.6-1.1) 11/21/19 19:39 Glucose 95 mg/dL (70-105) 11/21/19 19:39 Lactic Acid 2.3 mmol/L (0.5-2.2) H 11/21/19 19:39 Calcium 8.5 mg/dL (7.8-10.44) 11/21/19 19:39 Total Bilirubin 0.3 mg/dL (0.2-1.2) 11/21/19 19:39 AST 18 U/L (5-34) 11/21/19 19:39 ALT 17 U/L (8-55) 11/21/19 19:39 Alkaline Phosphatase 96 U/L (40-110) 11/21/19 19:39 Serum Total Protein 6.6 g/dL (6.0-8.3) 11/21/19 19:39 Albumin 3.3 g/dL (3.5-5.0) L 11/21/19 19:39 Hospitalist H&P A/P - Problem (1) DVT (deep venous thrombosis) Code(s): I82.409 - ACUTE EMBOLISM AND THOMBOS UNSP DEEP VN UNSP LOWER EXTREMITY Status: Acute (2) SIRS (systemic inflammatory response syndrome) Code(s): R65.10 - SIRS OF NON-INFECTIOUS ORIGIN W/O ACUTE ORGAN DYSFUNCTION Status: Acute (3) CKD (chronic kidney disease) Code(s): N18.9 - CHRONIC KIDNEY DISEASE, UNSPECIFIED Status: Acute (4) Bronchial asthma Code(s): J45.909 - UNSPECIFIED ASTHMA, UNCOMPLICATED Status: Acute (5) HTN (hypertension) Code(s): I10 - ESSENTIAL (PRIMARY) HYPERTENSION Status: Acute (6) SLE (systemic lupus erythematosus) Code(s): M32.9 - SYSTEMIC LUPUS ERYTHEMATOSUS, UNSPECIFIED Status: Acute - Plan Plan: 34y/o female with the stated pmhx who present to hospital with dvt of the IJ and sirs parameters dvt of IJ - started on lovenox full ac. its unclear to me at this point what her gfr is, she has been receiving h/d weekly and had her treatment today. will treat will lovenox full AC of 1xkg daily but pt might require higher. would discuss w book trimmer - neck ct consistent with thrombus - gen surgeon consulted for line removal ckd on h/d - unclear gfr, had h/d today - book trimmer consulted - monitor u/a and gfr sirs - patient with elevated wbc tachycardia and elevated LA with possible focus of iv line or infected thrombus - denies any fever chills general malaise or weakness, could be secondary to DVT and ckd - started prophylactically on vancomycn, given a dose of cefepime at the ED - cxr clean will get u/a to evaluated other possible sources of infection - started on ivfs, full bundles not given given her ckd and h/d tx - f/u LA - f/u blood cultures
[2019-11-21 23:07] LABS: Lactic Acid 2.6 mmol/L (0.5-2.2)
[2019-11-22 03:04] LABS: Bilirubin Negative (Negative); Blood, Urine 1+ (Negative); Clarity Clear (Clear); Glucose, Urine (Dipstick) Normal (Negative); Ketone, Urine Negative (Negative); Leukocyte Negative Leu/uL (Negative); Nitrite Negative (Negative); Protein, Urine (Dipstick) 600 mg/dL (Neg-Trace); Urobilinogen Normal mg/dL (Less than 2)
[2019-11-22 03:19] LABS: Specific Gravity, Urine Greater than 1.060 (1.002-1.036)
[2019-11-22 03:26] LABS: Bacteria/HPF 1+ HPF (None Seen)
[2019-11-22 03:27] LABS: Urine Culture Reflex No No
[2019-11-22 04:52] LABS: Mean Corpuscular HGB CONC 29.5 g/dL (32.0-36.0); Mean Corpuscular Hemoglobin 29.1 pg (27.0-31.0); Mean Corpuscular Volume 98.9 fL (78.0-98.0); Mean Platelet Volume 10.1 fL (7.4-10.4); Platelet Count 129 thou/uL (130-400); RBC Distribution Width 16.3 % (11.5-14.5); Red Blood Cell (RBC) Count 2.41 mill/uL (4.20-5.40); White Blood Cell (WBC) Count 7.5 thou/uL (4.8-10.8)
[2019-11-22 05:05] VITALS: BMI 27.2
[2019-11-22 05:13] LABS: ALT (SGPT) 15 U/L (8-55); AST (SGOT) 10 U/L (5-34); Albumin 2.8 g/dL (3.5-5.0); Alkaline Phosphatase 74 U/L (40-110); Anion Gap 10 mmol/L (10-20); BUN (Urea Nitrogen) 8 mg/dL (7.0-18.7); Bilirubin, Total 0.3 mg/dL (0.2-1.2); Calc. Creatinine Clearance 167 mL/min (70-130); Calcium 7.5 mg/dL (7.8-10.44); Carbon Dioxide 26 mmol/L (22-29); Chloride 107 mmol/L (98-107); Estimated GFR-MDRD Greater than 90; Globulin 2.6 g/dL (2.4-3.5); Glucose 79 mg/dL (70-105); Protein, Total 5.4 g/dL (6.0-8.3); Sodium 140 mmol/L (136-145)
[2019-11-22 05:21] LABS: Band 3 % (5-11); Hypochromia SLIGHT = 6-15 cells (100X) (0-5/hpf); Lymphocytes 25 % (21-51); MDiff Complete? YES; Monocytes 5 % (0-10); Neutrophil 67 % (42-75); Platelet Morphology Comment Appears Decreased; Polychromasia SLIGHT = 2-3 cells (100X) (0-2/hpf)
[2019-11-22 05:47] LABS: Potassium 2.9 mmol/L (3.5-5.1)
[2019-11-22] MEDS ORDERED: Potassium Chloride 20 MEQ TAB PO SCH (06:00)
[2019-11-22] MEDS: Vancomycin HCl 1.25 GM in Sodium Chloride 0.9% 250 ML 250 ML IVPB SCH ×3 (06:57→22:03)
[2019-11-22] MEDS ORDERED: Electrolyte Replacement Protoc 1 EACH EACH FS SCH (07:45)
[2019-11-22] MEDS ORDERED: Electrolyte Replacement Protocol FS PRN (08:15)
[2019-11-22] MEDS ORDERED: Enoxaparin Sodium 80 MG/0.8 ML SYRINGE SC SCH (09:00)
[2019-11-22] MEDS ORDERED: predniSONE 20 MG TAB PO SCH ×3 (09:00→21:00)
[2019-11-22] MEDS ORDERED: Enoxaparin Sodium 40 MG/0.4 ML SYRINGE SC SCH (09:00)
[2019-11-22] MEDS ORDERED: Vancomycin HCl 1 GM in Sodium Chloride 0.9% 250 ML 300 ML IVPB SCH (09:00)
[2019-11-22] MEDS ORDERED: Amlodipine 5 MG TAB PO SCH (10:30)
[2019-11-22] MEDS ORDERED: hydrALAZINE 25 MG TAB PO SCH (10:30)
[2019-11-22] MEDS: Potassium Chloride 20 MEQ TAB PO SCH ×2 (10:57→13:55)
[2019-11-22] MEDS: Mycophenolate 250 MG CAP PO SCH ×2 (11:00→23:45)
[2019-11-22] MEDS ORDERED: Hydroxychloroquine Sulfate 200 MG TAB PO SCH (11:15)
--- NOTE | 2019-11-22 12:34 | PDOC.HOSPP ---
- Subjective Encounter Date: 11/22/19 Encounter Time: 08:00 Subjective: no overnight events. Right neck and submandibular area pain and tenderness unchanged. Has no other complaints. - Objective Vital Signs & Weight: Vital Signs (12 hours) Temp Pulse Resp BP BP BP Pulse Ox 11/22/19 11:47 131 H 11/22/19 11:45 101.8 F H 131 H 24 H 97 11/22/19 10:57 123 H 192/112 H 11/22/19 09:22 173/98 H 11/22/19 07:43 98.7 F 117 H 15 184/110 H 99 11/22/19 04:39 99 F 104 H 20 160/111 H 98 11/22/19 01:10 98.8 F 103 H 20 186/122 H 100 Weight Weight 179 lb I&O: 11/21/19 11/22/19 11/23/19 06:59 06:59 06:59 Output Total 200 Balance -200 Result Diagrams: 11/22/19 04:23 11/22/19 04:23 Hospitalist ROS - Review of Systems Constitutional: denies: fever, chills, sweats Respiratory: denies: cough, dry, shortness of breath Gastrointestinal: denies: nausea, vomiting, abdominal pain, diarrhea Genitourinary: denies: dysuria, frequency, hematuria - Medication Medications: Active Medications Generic Name Dose Route Start Last Admin Trade Name Freq PRN Reason Stop Dose Admin Acetaminophen 650 mg 11/21/19 22:47 11/22/19 11:50 Tylenol PO 650 mg Q4H PRN Administration Headache/Fever/Mild Pain (1-3) Enoxaparin Sodium 80 mg 11/22/19 09:00 11/22/19 09:10 Lovenox SC 80 mg 0900 GIA Administration Hydroxychloroquine Sulfate 400 mg 11/22/19 11:15 11/22/19 11:46 Plaquenil PO 11/22/19 13:15 400 mg NOW GIA Administration Sodium Chloride 1,000 mls @ 50 mls/hr 11/21/19 23:00 11/22/19 02:25 Normal Saline 0.9% IV 1,000 mls .Q20H GIA Administration Vancomycin HCl 1.25 gm/ Sodium 250 mls @ 166.667 mls/hr 11/22/19 06:00 06:57 Chloride IVPB 250 mls Q8HR GIA Administration Mycophenolate Mofetil 250 mg 11/22/19 09:00 11/22/19 11:00 Cellcept PO 11/26/19 21:01 250 mg BID GIA Administration Potassium Chloride 40 meq 11/22/19 10:00 11/22/19 10:57 K-Dur PO 11/22/19 14:01 40 meq Q4H GIA Administration Prednisone 40 mg 11/22/19 09:00 11/22/19 11:00 Prednisone PO 40 mg QAM GIA Administration - Exam General Appearance: NAD, awake alert Eye: PERRL ENT - other findings: right neck and submundibular swelling and tenderness Heart: no murmur, no gallops, no rubs Heart - other findings: regular rhythm, tachycardic; RU thorax dialysis catheter unremarkable Respiratory: CTAB, no wheezes, no rales, no ronchi Gastrointestinal: soft, non-tender, non-distended Extremities: no edema Hosp A/P - Plan #R IJ thrombophlebitis -changed anticaogulation to therapeutic, which may resolve throbosis and symtpoms; deferring to nephrology/surgery regarding indication for catheter removal -warm compresses; NSAIDs remaining management unchanged
[2019-11-22] MEDS ORDERED: Labetalol HCl 100 MG/20 ML VIAL SLOW IVP PRN (12:47)
[2019-11-22 13:40] LABS: Potassium 4.1 mmol/L (3.5-5.1)
[2019-11-22 14:16] LABS: Bacteria/HPF None Seen HPF (None Seen); Bilirubin Negative (Negative); Blood, Urine Negative (Negative); Clarity Clear (Clear); Glucose, Urine (Dipstick) Normal (Negative); Ketone, Urine Negative (Negative); Leukocyte 75 Leu/uL (Negative); Nitrite Negative (Negative); Protein, Urine (Dipstick) 50 mg/dL (Neg-Trace); Urobilinogen Normal mg/dL (Less than 2); pH, Urine 6.5 (5.0-9.0)
[2019-11-22 14:18] LABS: Urine Culture Reflex No No
[2019-11-22 15:04] LABS: SARS-CoV-2 MS2 Positive; SARS-CoV-2 N Gene Negative; SARS-CoV-2 S Gene Negative; SARS-CoV-2 by NAA Not Detected (NotDetected); SARS-CoV-2 orf1ab Negative
[2019-11-22] MEDS: hydrALAZINE 25 MG TAB PO SCH ×2 (15:41→22:14)
[2019-11-22 16:55] LABS: Iron 10 ug/dL (50-170); Iron Binding Capacity, Total 196 mcg/dL (265-497)
--- NOTE | 2019-11-22 17:39 | CON ---
DATE OF CONSULTATION: CONSULTING PHYSICIAN: Gerber Carlos MD REQUESTING PHYSICIAN: Hospitalist Medicine. REASON FOR CONSULTATION: Query need for maintenance dialysis. IMPRESSION: 1. 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 2. End-stage renal disease with improvement in renal function to the point that dialysis is no longer needed. 3. Anemia, query cause. 4. Fever, possibly related to thrombosis. 5. History of lupus. 6. Acute tubular necrosis resulting in renal failure to the point of requiring renal replacement therapy in the context of poststreptococcal glomerulonephritis. PLAN: 1. Tunneled dialysis catheter needs to come out. 2. Iron studies to evaluate this degree of anemia. 3. Deescalate prednisone. We will change it down to 20 mg and continue to wean this down to maintenance dose. 4. Avoid potentially nephrotoxic agents. We will discontinue the ibuprofen. 5. I do agree with discontinuation of IV fluid. 6. We will re-evaluate CBC and the renal function panel tomorrow and make a decision on the anemia for further management. 7. Further management will be dependent on the clinical course and recommendations from the primary service. HISTORY OF PRESENT ILLNESS: A 34-year-old female patient who recently developed severe acute tubular necrosis in the context of sepsis and poststrep glomerulonephritis with a baseline history of lupus nephropathy with a confirmed biopsy of membranous lupus nephropathy, but not necessarily responsible for the acute renal shutdown. The patient was started on renal replacement therapy and subsequently discharged on this modality of treatment with continued monitoring of renal function. Of recent, the patient started showing evidence of renal recovery for which re-evaluation of the kidney function was being carried out. Unfortunately, the patient developed PermCath thrombosis in the middle of re-evaluation of the renal function vis-a-vis the possibility of discontinuation of dialysis. In any case, the patient presented for dialysis and observation reviewed neck swelling for which the patient was sent to the hospital, where imaging studies revealed central vein thrombosis more or less fibrin sheath possibly wrapped around the dialysis catheter with central vein occlusion resulting in the neck swelling. As a result of this, decision was taken to involve Renal for further management of this case. PAST MEDICAL HISTORY: Significant for lupus, acute tubular necrosis, poststrep glomerulonephropathy, hypertension. MEDICATIONS: Reviewed as documented on imoji. ALLERGIES: NO KNOWN DOCUMENTED ALLERGIES. FAMILY HISTORY: Nonsignificantly related to present illness. SOCIAL HISTORY: No illicit drug use. REVIEW OF SYSTEMS: As documented in the body of history. Other systems were reviewed and found not to be significantly related to present illness. PHYSICAL EXAMINATION: GENERAL: The patient was found not to be in any obvious distress with obvious neck asymmetry noted with the following vital signs. VITAL SIGNS: Temperature 101.8, pulse 131, with blood pressure 158/114. HEENT: Unremarkable. CARDIOVASCULAR SYSTEM: First and second heart sounds were heard. RESPIRATORY SYSTEM: Clear to auscultation. DIGESTIVE SYSTEM: Revealed a benign abdomen with positive bowel sounds. EXTREMITIES: No peripheral edema. SKIN: No new gross rash. LYMPHATICS: No peripheral lymphadenopathy. SUMMARY: A 34-year-old female patient who recently developed renal shutdown in the context of sepsis-induced acute tubular necrosis and poststreptococcal glomerulonephritis who in the process of renal recovery developed PermCath thrombosis with resultant neck swelling. Thank you for this consultation. We will follow with you. Job ID: [id number]
[2019-11-22] MEDS ORDERED: Ibuprofen 600 MG TAB PO SCH (18:00)
[2019-11-22] MEDS: HYDROcodone/Acetaminophen 5/325 mg Tablet PO PRN (19:33)
[2019-11-22] MEDS ORDERED: Mycophenolate 250 MG CAP PO SCH (21:45)
[2019-11-22] MEDS: Enoxaparin Sodium 80 MG/0.8 ML SYRINGE SC SCH (22:01)
[2019-11-23 05:39] LABS: #Eosinphils 0.1 thou/uL (0.0-0.7); #Lymphocytes 1.5 thou/uL (1.20-3.40); #Monocytes 0.6 thou/uL (0.11-0.59); #Neutrophils 6.6 thou/uL (1.40-6.50); %Basophils 0.2 % (0.0-1.0); %Eosinophils 0.6 % (0.0-10.0); %Lymphocytes 17.5 % (21.0-51.0); %Monocytes 6.3 % (0.0-10.0); %Neutrophils 75.3 % (42.0-75.0); Hemoglobin 7.2 g/dL (12.0-16.0); Mean Corpuscular HGB CONC 29.5 g/dL (32.0-36.0); Mean Corpuscular Volume 98.4 fL (78.0-98.0); Platelet Count 151 thou/uL (130-400); RBC Distribution Width 16.1 % (11.5-14.5); Red Blood Cell (RBC) Count 2.47 mill/uL (4.20-5.40); White Blood Cell (WBC) Count 8.8 thou/uL (4.8-10.8)
[2019-11-23 05:43] LABS: Albumin 2.9 g/dL (3.5-5.0); Anion Gap 9 mmol/L (10-20); BUN (Urea Nitrogen) 7 mg/dL (7.0-18.7); BUN/Creatinine Ratio 11.86; Calc. Creatinine Clearance 175 mL/min (70-130); Calcium 8.1 mg/dL (7.8-10.44); Carbon Dioxide 24 mmol/L (22-29); Chloride 106 mmol/L (98-107); Estimated GFR-MDRD Greater than 90; Glucose 78 mg/dL (70-105); Magnesium 1.7 mg/dL (1.6-2.6); Phosphorus 2.4 mg/dL (2.3-4.7); Sodium 135 mmol/L (136-145); Vancomycin, Trough 21.1 ug/mL
[2019-11-23] MEDS: HYDROcodone/Acetaminophen 5/325 mg Tablet PO PRN (05:55)
[2019-11-23] MEDS: Vancomycin 1 GM in Premix Bag 1 BAG IVPB SCH ×2 (06:03→15:00)
[2019-11-23] MEDS ORDERED: Magnesium 2 GM/50 ML 2 GM in Premix Bag 1 BAG IVPB SCH (06:30)
[2019-11-23] MEDS ORDERED: predniSONE 20 MG TAB PO SCH (08:00)
[2019-11-23] MEDS: hydrALAZINE 25 MG TAB PO SCH ×2 (08:15→15:44)
[2019-11-23] MEDS ORDERED: Lidocaine 1% (PF) 30 ML VIAL ONE (08:54)
[2019-11-23] MEDS ORDERED: Amlodipine 5 MG TAB PO SCH (09:00)
[2019-11-23] MEDS ORDERED: Hydroxychloroquine Sulfate 200 MG TAB PO SCH (09:00)
[2019-11-23] MEDS ORDERED: Mycophenolate 250 MG CAP PO SCH (09:00)
[2019-11-23] MEDS ORDERED: PARoxetine 20 MG TAB PO SCH (09:00)
[2019-11-23] MEDS: Enoxaparin Sodium 80 MG/0.8 ML SYRINGE SC SCH (09:11)
[2019-11-23] MEDS ORDERED: Lidocaine 1% w/Epinephrine 1:100K 20 ML VIAL NERVE BLCK SCH (09:15)
[2019-11-23 12:22] VITALS: TEMP 98.9
[2019-11-23 15:46] VITALS: BP 167/115
--- NOTE | 2019-11-23 18:17 | PRG ---
DATE OF SERVICE: 11/23/2019 SUBJECTIVE: The patient was seen and examined today. She seems to be doing much better and noted with the following vital signs. OBJECTIVE: VITAL SIGNS: Afebrile, temperature 98.9, pulse 114 to 123, respiratory rate of 16, O2 saturation of 97%, blood pressure 144/95. HEENT: Unremarkable. CARDIOVASCULAR SYSTEM: First and second heart sounds were heard. RESPIRATORY SYSTEM: Clear to auscultation. DIGESTIVE SYSTEM: Revealed a benign abdomen. EXTREMITIES: No peripheral edema. SKIN: No new gross rash. LYMPHATICS: No peripheral lymphadenopathy. IMPRESSION: 1. 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 2. Anemia. PLAN: The patient's dialysis catheter to be removed, after which the patient can be discharged home. No indication for renal replacement therapy. We will follow up this patient as an outpatient. We will and further management will be dependent on the clinical course. Job ID: [id number]
--- NOTE | 2019-11-23 23:51 | DIS ---
DATE OF ADMISSION: 11/21/2019 DATE OF DISCHARGE: 11/23/2019 HOSPITAL COURSE: Ms. Barlow is a 34-year-old female with a medical history of tubular necrosis requiring hemodialysis through a right internal jugular PermCath, who presented with right neck and submandibular swelling and tenderness. She was diagnosed with right IJ internal jugular thrombosis. Nephrology and surgery were consulted, the right IJ PermCath was removed and after the patient received a short duration of ibuprofen, her symptoms have improved. She was started on anticoagulation for 3 months pending followup by her primary care physician. In addition to that, the patient had progressively worsening anemia. Iron panel revealed anemia of inflammation. She was discharged home hemodynamically stable with no complaints and a followup appointment with primary care physician. PHYSICAL EXAMINATION: VITAL SIGNS: Blood pressure 144/95, heart rate 123, respiratory rate 16, oxygen saturation 97% on room air, temperature 98.5 Fahrenheit. GENERAL: Lying comfortably in bed. Awake and alert. HEENT: Improving right neck and submandibular swelling and tenderness. CARDIAC: Regular rhythm, tachycardic. No murmurs, gallops, or rubs. LUNGS: Clear to auscultation bilaterally. No wheezing, rales or rhonchi. ABDOMEN: Soft, nontender, nondistended. Normal bowel sounds. PSYCHIATRIC: Exam proper mood and affect. Alert and oriented x3. MEDICATION LIST: New medications: Apixaban 5 mg p.o. b.i.d. for right internal jugular thrombus. CONTINUED MEDICATIONS: 1. Paroxetine. 2. Hydroxychloroquine. 3. Amlodipine. 4. Mycophenolate. 5. Prednisone. 6. Hydralazine. DISCONTINUED MEDICATIONS: No discontinued medications. MODIFIED MEDICATIONS: No modified medications. Job ID: [id number]
--- NOTE | 2019-11-24 07:35 | OP ---
DATE OF PROCEDURE: 11/23/2019 PREOPERATIVE DIAGNOSES: 1. Acute renal failure, resolved. 2. Needs removal of hemodialysis catheter in the right internal jugular. POSTOPERATIVE DIAGNOSES: 1. Acute renal failure, resolved. 2. Needs removal of hemodialysis catheter in the right internal jugular. PROCEDURE PERFORMED: Removal of right internal jugular hemodialysis catheter. Note, cuff not incorporated. Also note, the patient has thrombus around the catheter. ANESTHESIA: None. DESCRIPTION OF PROCEDURE: With the patient at bedside in her room, the catheter suture removed. It was gently tugged. The cuff was not incorporated. The catheter was removed easily and pressure held until hemostatic. Note, catheter placed on 09/10/2019. The patient will keep dressing over this wound until later tonight or tomorrow. She can remove it, wash it with soap water, place a Band-Aid. In my opinion, the patient does not need anticoagulation. Job ID: [id number]
--- NOTE | 2019-11-25 09:57 | PQF ---
CLINICAL DOCUMENTATION CLARIFICATION FORM: Dear : ____Reynaldo Rodriguez Date / Time: ____11/25/2019 ____ Please exercise your independent, professional judgment in responding to the clarification form. Clinical indicators are provided on the bottom of this form for your review Please check appropriate box(es) to clarify if the following diagnosis has been ruled in our ruled out: Sepsis [ ] Ruled in diagnosis [ ] Continue to treat [ ] Resolved [ x ] Ruled out diagnosis [ ] Improving [ ] Cannot rule out diagnosis [ ] Other diagnosis [ ] Unable to determine Physician Signature: Date/Time: For continuity of documentation, please document condition throughout progress notes and discharge summary. Thank You. To be completed by CDI/Coding staff for physician review: w Present w Clinical Indicators - Signs / Symptoms / Labs w Results and Location in Medical Record w [ x] w Sepsis w ED record, 11/20, Davon Santiago MD w [ x] w Temp:100.2, Pulse: 141, RR: 20 w ED record, 11/20, Davon Santiago MD w [ x] w WBC:11.6H w Laboratory report, 11/20 w [ x] w SIRS, patient with elevated WBC tachycardia and elevated LA with possible focus of iv line or infected thrombus w H&P, 11/21, Mauricio Martinez MD w w w w Present w Risk Factors w Results and Location in Medical Record w [x] w DVT of IJ w H&P, 11/21, Patricia Martinez MD w [x] w R IJ thrombophlebitis w Hospital PN, 11/21, Reynaldo Rodriguez MD w Present w Treatments w Results and Location in Medical Record w [ x] w Vancomycin.IV w JUN, 11/21 w [ x ] w Maxipime.IV w JUN, 11/20 w w w w w w CDS/[facility] Signature: Judi Dockery Phone #: [phone] Date/Time:_ 11/25/2019 This is a permanent part of the Medical Record [facility]
[2019-11-27] MEDS ORDERED: Mycophenolate 250 MG CAP PO SCH (09:00)
== END 2019-11-23 15:58 | disposition home or self-care (01) | DRG 314 ==
LOC: ERS 19:10 → 2SE 21:01
PROVIDERS: ADMIT Internal Medicine; ATTEND Internal Medicine
PROC: 05PYX3Z Removal of Infusion Device from Upper Vein, External Approach (ICD-10-PCS; principal; 2019-11-23)
DX: T80.1XXA Vascular complications following infusion, transfusion and therapeutic injection, initial encounter (principal); N18.6 End stage renal disease; I82.C11 Acute embolism and thrombosis of right internal jugular vein; R65.10 Systemic inflammatory response syndrome (SIRS) of non-infectious origin without acute organ dysfunction; I12.0 Hypertensive chronic kidney disease with stage 5 chronic kidney disease or end stage renal disease; N17.9 Acute kidney failure, unspecified; I87.1 Compression of vein; R13.10 Dysphagia, unspecified; M32.9 Systemic lupus erythematosus, unspecified; D63.1 Anemia in chronic kidney disease; Y83.8 Other surgical procedures as the cause of abnormal reaction of the patient, or of later complication, without mention of misadventure at the time of the procedure; F32.9 Major depressive disorder, single episode, unspecified
CPT/HCPCS: 36415; 70491; 71045; 80053; 80069; 80202; 81001; 82728; 83540; 83550; 83605; 83735; 84145; 84703; 85007; 85025; 85027; 87040; 87086; 87149; 87635; 93005; 96361; 96365; 96366; 96367; 96372; J0692; J1650; J2001; J3370; J3475; J7050; J7512; J7517; Q9967; U0003